=== PATIENT | male | born 1955 | race Caucasian/White ===

== ENCOUNTER 2022-09-30 23:53 | Inpatient (IN) | payer MEDICARE, MEDICAID, SELFPAY ==
--- NOTE | ~2022-09-30 | CT_ITS ---
EXAMINATION: CT HEAD WITHOUT CONTRAST CLINICAL INFORMATION: Acute AMS on Eliquis? Bleed COMPARISON: None. TECHNIQUE: Contiguous axial imaging was performed of the head without the administration of IV contrast. This CT examination was performed using dose optimization techniques as appropriate, variously including the following: *Automated exposure control *Adjustment of mA and/or kV according to patient size (this includes techniques or standardized protocols for targeted exams where dose is matched to indication/reason for exam; i.e. extremities or head) *Use of iterative reconstruction technique Dose: 767 mGy-cm FINDINGS: There is no evidence of acute intracranial hemorrhage or territorial infarction. No abnormal mass-effect or midline shift is seen. Velasco to white matter differentiation is well preserved. No extra axial fluid collections. The ventricles are normal in size and configuration. There is no abnormal attenuation within the brain parenchyma. Calcific atherosclerosis is present within the cavernous segments of the internal carotid arteries. The soft tissues and osseous structures are normal. Defects in the medial lord of the bilateral maxillary sinuses likely correspond to chronic changes of sinus surgery. The middle turbinates appear absent. There is thickening of the right maxillary sinus lord. Bilateral mastoid effusions are noted. CT/CT head/brain wo IV con IMPRESSION: No acute intracranial pathology. Bilateral mastoid effusions. This may be asymptomatic, though consider correlation for clinical findings of mastoiditis.
--- NOTE | ~2022-09-30 | XR_ITS ---
EXAMINATION: XR CHEST CLINICAL INFORMATION: Shortness of breath. COMPARISON: None TECHNIQUE: Frontal view of the chest was obtained. FINDINGS: Rotation limits evaluation of the cardiomediastinum and lungs. There are equivocal bibasilar airspace opacities, greater on the right side with possible small amount of right-sided pleural fluid. No pneumothorax. No displaced osseous fractures. Right upper quadrant surgical clips are noted. XR/XR chest 1V IMPRESSION: Equivocal bibasilar airspace opacities, greater on the right side with possible small amount of right-sided pleural fluid. In view of limitations of the study, recommend a repeat imaging with also correlation with a lateral chest radiograph.
--- NOTE | ~2022-09-30 | XR_ITS ---
EXAMINATION: XR CHEST CLINICAL INFORMATION: Shortness of breath. COMPARISON: 10/01/2022 chest radiograph. TECHNIQUE: Frontal view of the chest was obtained. FINDINGS: There is persistent moderate elevation right hemidiaphragm with mild bibasilar increased opacification. The left lung is clear. The heart and mediastinal structures are unremarkable. XR/XR chest 1V IMPRESSION: Small to moderate pleural effusion represents interval increase from the previous study.
--- NOTE | ~2022-09-30 | CT_ITS ---
EXAMINATION: CT ABDOMEN AND PELVIS WITHOUT CONTRAST CLINICAL INFORMATION: Altered mental status. Question small bowel obstruction. COMPARISON: None TECHNIQUE: Multidetector volumetric imaging was performed from the superior aspect of the liver through the pubic symphysis. Sagittal and coronal reformatted images were obtained on the technologist's workstation. This CT examination was performed using dose optimization techniques as appropriate, variously including the following: *Automated exposure control *Adjustment of mA and/or kV according to patient size (this includes techniques or standardized protocols for targeted exams where dose is matched to indication/reason for exam; i.e. extremities or head) *Use of iterative reconstruction technique DLP: 686 mGy-cm FINDINGS: LUNG BASES: Collapse of the left lower lobe, partial collapse of the right lower lobe, and additional atelectasis in the upper lobes are partially imaged. LIVER, GALLBLADDER, AND BILIARY TREE: Variant anatomy of the liver with interposition of the hepatic flexure between the liver and the right hemidiaphragm. Liver is otherwise normal in appearance without appreciable focal lesions on this unenhanced study. No ductal dilatation. Gallbladder is surgically absent. PANCREAS: A few pancreatic parenchymal calcifications are noted, possibly corresponding to sequela of chronic pancreatitis. No findings of acute pancreatitis. No ductal dilatation. SPLEEN: Unremarkable. ADRENAL GLANDS: Unremarkable. KIDNEYS AND URETERS: There is a dominant 6 cm multilocular cyst at the left kidney with fluid attenuation (3 Hounsfield units). Multiple additional smaller cystic foci are present at both kidneys. No recommend imaging follow-up. The kidneys are normal in size, shape, and attenuation. No hydronephrosis or hydroureter multiple punctate calcifications are noted in the right renal collecting system, consistent with nephrolithiasis. These are most notable within calyces of the lower pole and measure up to 3 mm in diameter. There is mild right hydroureteronephrosis. A 4 mm calculus is evident at the right ureterovesical junction with an attenuation value of 900 Hounsfield units. There is a smaller 1 mm calculus within the right distal ureter just proximal to this. Mild bilateral and perinephric fat stranding. Right periureteral fat stranding is noted. BLADDER: Thick-walled with mild surrounding fat stranding GASTROINTESTINAL TRACT: Stomach, small bowel, and colon are normal in caliber. No bowel wall thickening. No intraperitoneal free fluid or free air. ABDOMINAL WALL: Diffuse muscle atrophy. No hernias. LYMPH NODES: No adenopathy. VASCULAR: Calcific atherosclerosis abdominal aorta and iliac arteries. No aneurysmal dilatation. PELVIC VISCERA: Prostate gland measures 4.7 cm in diameter, borderline enlarged. OSSEOUS STRUCTURES: Moderate degenerative disc disease and facet arthropathy in the lower lumbar spine with mild left convex curvature. There is mild to moderate osteoarthritis in both hips. No acute fractures are identified. Bones are osteopenic. No joint effusions. There is marked multifocal atrophy and fatty replacement of the pelvic musculature with sparing of the gluteus odessa muscles. CT/CT abdomen pelvis wo IV con IMPRESSION: 1. A 4 mm calculus at the right ureterovesical junction produces mild right hydroureteronephrosis. An additional 1 mm calculus is present in the right distal ureter. 2. Multiple additional punctate calculi in the right renal collecting system. 3. Thick-walled bladder with surrounding fat stranding, potentially due to chronic bladder outlet obstruction or cystitis. Borderline prostatomegaly 4. Partial collapse of the left lower lobe, partial collapse of the right lower lobe, and additional atelectasis in the upper lobes. 5. Osteoarthritis in the hips. No acute osseous findings. Fleischner guidelines were followed.
--- NOTE | ~2022-09-30 | CT_ITS ---
EXAMINATION: CT CHEST WITHOUT CONTRAST CLINICAL INFORMATION: Hypoxia. On Eliquis COMPARISON: None TECHNIQUE: Multidetector volumetric CT imaging of the chest was done. Axial MIP volume rendering provided. Sagittal and coronal reformatted images were obtained. This CT examination was performed using dose optimization techniques as appropriate, variously including the following: *Automated exposure control *Adjustment of mA and/or kV according to patient size (this includes techniques or standardized protocols for targeted exams where dose is matched to indication/reason for exam; i.e. extremities or head) *Use of iterative reconstruction technique DLP: 362 mGy-cm FINDINGS: LIFE INSURANCE SALES: Elevation of the right hemidiaphragm. LUNGS: Linear, platelike opacities in the right upper lobe correspond to atelectasis, subsegmental. There is collapse of the right middle lobe, likely chronic. Additional segmental atelectasis is evident within the right lower lobe involving the medial and posterior basilar segments and a portion of the apical segment. There is collapse of the left lower lobe with persistent air bronchograms. More mild atelectasis is evident within the lingula. Areas of superimposed consolidation are possible, though not discretely seen. No pulmonary nodules. Central airways are clear. MEDIASTINUM: Mild calcific atherosclerosis in the coronary arteries. Heart is normal in size. No pericardial effusion. Thyroid gland is atrophic. No mediastinal or hilar adenopathy. CORONARY ARTERY CALCIFICATION: Present PLEURA: There is no pleural effusion. No pleural mass or thickening. AXILLA: No lymphadenopathy. UPPER ABDOMEN: There is detailed on the dedicated CT of the abdomen and pelvis. No acute findings. OSSEOUS STRUCTURES: No acute osseous findings. Bilateral glenohumeral osteoarthritis. Bilateral rotator cuff muscle atrophy, consistent with chronic rotator cuff tears. CT/CT chest wo IV con IMPRESSION: 1. Multifocal atelectasis in the lungs with collapse of the right middle and left lower lobes as well as partial collapse of the right lower lobe and subsegmental atelectasis in the upper lobes.. Superimposed consolidation is possible, though not discretely seen. 2. Elevation of the right hemidiaphragm. Fleischner guidelines were followed.
--- NOTE | 2022-09-30 23:58 | ED_ITS ---
HPI - SOB/Dyspnea General Chief Complaint: Dyspnea Stated Complaint: sob Time Seen by Provider: 09/30/22 23:58 Source: patient, EMS and RN notes reviewed Mode of arrival: EMS History of Present Illness HPI Narrative: Patient is 67 years old with history of frontotemporal dementia bipolar disorder COPD limb-girdle muscular dystrophy paroxysmal AFib on Eliquis came from longterm for increased shortness of breath since earlier today had chest x-ray done which showed right basilar airspace disease. Patient normally wears 3 L of oxygen desaturated to 84% increased on 6 L to 92% patient is DNR DNI has used CPAP in the past Related Data Allergies Allergy/AdvReac Type Severity Reaction Status Date / Time No Known Allergies Allergy Verified 10/01/22 00:06 Review of Systems Review of Systems: Yes all other systems are reviewed and are negative [facility] Social History Social History Advance Directives: Yes Advance Directives Information Provided: No Advance Directives on File: No Physical Exam Vital Signs: Vital Signs: Last Vital Signs Temp 95.6 F L 10/01/22 04:05 Pulse 70 10/01/22 04:05 Resp 18 10/01/22 05:32 BP 143/76 H 10/01/22 04:05 Pulse Ox 96 10/01/22 04:05 O2 Del Method 10/01/22 04:05 O2 Flow Rate 4 10/01/22 04:05 Oxygen Flow Rate 6 10/01/22 00:07 BMI result Body Mass Index 22.4 Appearance: Alert. Oriented X3. No acute distress. Eyes: PERRLA, No Nystagmus ENT: Pharynx normal. Oral Mucosa moist Neck: Normal inspection. Neck supple. CVS: Normal heart rate and rhythm. Pulses normal. Respiratory: No respiratory distress. Equal air entry bilateral, no wheezing/rales/rhonchi Abdomen: Soft and nontender. Bowel sounds are present, no mass palpable, no CVA tenderness Skin: Skin warm and dry. Normal skin color. Normal skin turgor. Extremities: No lower extremity edema. No calf tenderness Neuro: Oriented X 3. Extremity weakness bilateral all , No sensory deficit.No cerebellar signs , cranial nerves II-XII intact Medications Administered Discontinued Medications Generic Name Dose Route Start Last Admin Trade Name Freq PRN Reason Stop Dose Admin Albuterol Sulfate 5 mg/ 7.5 mg 10/01/22 05:25 10/01/22 05:29 Albuterol Sulfate 2.5 mg INHALE 10/01/22 05:26 7.5 mg ONCE ONE Administration Albuterol Sulfate 2.5 mg/ 0 mg 10/01/22 01:10 10/01/22 01:14 Albuterol/Ipratropium 3 ml INHALE 10/01/22 01:11 1 each ONCE ONE Administration Piperacillin Sod/Tazobactam 50 mls @ 100 mls/hr 10/01/22 03:18 10/01/22 04:29 Sod 3.375 gm/ Sodium Chloride IV 10/01/22 03:47 Infused ONCE ONE Infusion Levetiracetam 1,000 mg in 100 mls @ 400 mls/hr 10/01/22 05:51 10/01/22 06:38 Keppra IV 10/01/22 06:05 Infused ONCE ONE Infusion Methylprednisolone Sodium Succinate 125 mg 10/01/22 05:25 10/01/22 05:31 Methylprednisolone Sod Succ 125 Mg/2 Ml Vial IVPUSH 10/01/22 05:26 125 mg ONCE ONE Administration Midazolam HCl 1 mg 10/01/22 05:46 10/01/22 05:48 Midazolam Hcl/Pf 2 Mg/2 Ml Vial IVPUSH 10/01/22 05:47 1 mg ONCE ONE Administration MDM - SOB/Dyspnea MDM Narrative Medical decision making narrative: 3 am Patient with questionable right lower infiltrate lobe infiltrate normal WBC count normal lactic acid level will do CT chest. Patient Eliquis unlikely PE patient's saturation improved after nebulizing treatment likely patient has COPD which causing the bronchospasm and hypoxia will give IV Zosyn pending CT chest also patient has significant UTI 330 nurse notified that patient is cold clammy not responding just few minutes ago patient was at basal orientation and communicating on examination patient is diaphoretic left facial droop shallow breathing saturating 96% on 5 L nasal oxygen blood pressure 165/[address] scan of the head rule out bleed patient became urinary incontinence no seizure activity noticed? Postictal versus cerebral bleed 03:55 patient alert getting back to his baseline again CT head was negative no bleed was noticed CT chest showed 1.? Multifocal atelectasis in the lungs with collapse of the right middle and left lower lobes as well as partial collapse of the right lower lobe and subsegmental atelectasis in the upper lobes.. Superimposed consolidation is possible, though not discretely seen. 2.? Elevation of the right hemidiaphragm. ABG showed respiratory acidosis with pH of 7.23 pCO2 of 125 PO2 72 Patient is wheezing bilaterally will start him on IV steroids admit to ICU placed on AVAPS patella volume of 500 rate 18 EPAP of 5 patient is more awake and alert back to baseline Differential Diagnosis Differential diagnosis: Likely acute exacerbation of chronic obstructive airways disease, congestive heart failure, pneumonia and asthma with exacerbation Medical Records Attestation: I reviewed the patient's medical records. Lab Data Attestation: I reviewed the patient's lab results. Result diagrams: 10/01/22 00:27 10/01/22 00:27 Labs: Lab Results 10/01/22 10/01/22 10/01/22 Range/Units 00:27 00:27 00:27 WBC 10.3 (4.8-10.8) X10*3/uL RBC 4.42 L (4.60-5.80) X10*6/uL Hgb 13.9 L (14.0-18.0) g/dl Hct 46.8 (42.0-52.0) % MCV 105.9 H (80.0-98.0) fL MCH 31.4 (27.0-33.0) pg MCHC 29.7 L (31.0-36.0) g/dl RDW 12.0 (11.0-16.0) % Plt Count 251 (160-400) X10*3/uL MPV 9.0 L (9.4-12.4) fL Immature Gran % (Auto) 0.4 (0.0-0.4) % Neut % (Auto) 88.8 H (45-73) % Lymph % (Auto) 4.4 L (20-40) % [place] % (Auto) 6.0 (2-11) % Eos % (Auto) 0.1 (0-4) % Baso % (Auto) 0.3 (0-2) % Lymph # (Auto) 0.5 L (1.2-4.9) X10*3/uL [place] # (Auto) 0.6 (0.1-1.2) X10*3/uL Eos # (Auto) 0.0 (0.0-0.4) X10*3/uL Baso # (Auto) 0.0 (0.0-0.2) X10*3/uL Abs Immat Gran (auto) 0.04 H (0.00-0.03) X10*3/uL Absolute Neuts (auto) 9.1 H (2.0-8.3) x10*3/uL Absolute Nucleated RBC 0.000 (0.0-0.012) X10*3/uL Nucleated RBC % (auto) 0.0 (0.0-0.2) /100WBC PT (10.0-13.1) SEC INR (0.9-1.1) D-Dimer High Sensitivty NG/ML O2 Saturation % ABG pH at Pt Temp (7.35-7.45) ABG pCO2 at Pt Temp (32-45) mmHg ABG pO2 at Pt Temp (83-108) mmHg ABG HCO3 (22-26) mmol/L ABG Base Excess (Actual) mmol/L VBG pH (7.32-7.43) VBG pCO2 mmHg VBG pO2 mmHg VBG HCO3 (22-26) mmol/L VBG O2 Saturation % VBG Base Excess mmol/L Sodium 148 H (135-145) mmol/L Potassium 4.9 (3.3-5.1) mmol/L Chloride 90 L (96-108) mmol/L Carbon Dioxide 44 H* (22-29) mmol/L Anion Gap 19 (12-20) BUN 17 H (9-16) mg/dL Creatinine 0.62 (0.5-1.4) mg/dL Estim Creat Clear Calc 126.0 Estimated GFR > 60 POC Glucose (60-115) mg/dL Random Glucose 139 H (60-115) mg/dL Lactic Acid 0.5 (0.5-2.0) mmol/L Calcium 9.7 (8.4-10.2) mg/dL Total Bilirubin 0.4 (0.0-1.0) mg/dL AST 28 (5-37) U/L ALT 35 (0-40) U/L Alkaline Phosphatase 69 (39-117) U/L Troponin I High Sens (<3.5-35.0) ng/L B-Natriuretic Peptide (<100) pg/mL Total Protein 7.2 (6.5-8.0) g/dL Albumin 4.0 (3.5-5.0) g/dL Urine Color Urine Appearance Urine pH (5.0-9.0) Ur Specific Castella (1.005-1.025) Urine Protein (Neg-Trace) mg/dL Urine Glucose (UA) (Negative) mg/dL Urine Ketones (Negative) mg/dL Urine Blood (Negative) Urine Nitrite (Negative) Ur Leukocyte Esterase (Negative) Urine RBC (0-2) /HPF Urine WBC (0-5) /HPF Ur Squamous Epith Cells (0-2) /HPF Urine Bacteria (None Seen) Hyaline Casts (0-2) /LPF COVID-19 (JOSE) (Negative) COVID-19 Clin Com Influenza Type A (PCR) (Negative) Influenza Type B (PCR) (Negative) RSV RNA Qual (PCR) (Negative) SARS-CoV-2 RNA (RT-PCR) (Negative) 10/01/22 10/01/22 10/01/22 Range/Units 00:27 00:28 00:28 WBC (4.8-10.8) X10*3/uL RBC (4.60-5.80) X10*6/uL Hgb (14.0-18.0) g/dl Hct (42.0-52.0) % MCV (80.0-98.0) fL MCH (27.0-33.0) pg MCHC (31.0-36.0) g/dl RDW (11.0-16.0) % Plt Count (160-400) X10*3/uL MPV (9.4-12.4) fL Immature Gran % (Auto) (0.0-0.4) % Neut % (Auto) (45-73) % Lymph % (Auto) (20-40) % [place] % (Auto) (2-11) % Eos % (Auto) (0-4) % Baso % (Auto) (0-2) % Lymph # (Auto) (1.2-4.9) X10*3/uL [place] # (Auto) (0.1-1.2) X10*3/uL Eos # (Auto) (0.0-0.4) X10*3/uL Baso # (Auto) (0.0-0.2) X10*3/uL Abs Immat Gran (auto) (0.00-0.03) X10*3/uL Absolute Neuts (auto) (2.0-8.3) x10*3/uL Absolute Nucleated RBC (0.0-0.012) X10*3/uL Nucleated RBC % (auto) (0.0-0.2) /100WBC PT 13.7 H (10.0-13.1) SEC INR 1.2 H (0.9-1.1) D-Dimer High Sensitivty 226 NG/ML O2 Saturation % ABG pH at Pt Temp (7.35-7.45) ABG pCO2 at Pt Temp (32-45) mmHg ABG pO2 at Pt Temp (83-108) mmHg ABG HCO3 (22-26) mmol/L ABG Base Excess (Actual) mmol/L VBG pH (7.32-7.43) VBG pCO2 mmHg VBG pO2 mmHg VBG HCO3 (22-26) mmol/L VBG O2 Saturation % VBG Base Excess mmol/L Sodium (135-145) mmol/L Potassium (3.3-5.1) mmol/L Chloride (96-108) mmol/L Carbon Dioxide (22-29) mmol/L Anion Gap (12-20) BUN (9-16) mg/dL Creatinine (0.5-1.4) mg/dL Estim Creat Clear Calc Estimated GFR POC Glucose (60-115) mg/dL Random Glucose (60-115) mg/dL Lactic Acid (0.5-2.0) mmol/L Calcium (8.4-10.2) mg/dL Total Bilirubin (0.0-1.0) mg/dL AST (5-37) U/L ALT (0-40) U/L Alkaline Phosphatase (39-117) U/L Troponin I High Sens 24.2 (<3.5-35.0) ng/L B-Natriuretic Peptide 82 (<100) pg/mL Total Protein (6.5-8.0) g/dL Albumin (3.5-5.0) g/dL Urine Color Urine Appearance Urine pH (5.0-9.0) Ur Specific Castella (1.005-1.025) Urine Protein (Neg-Trace) mg/dL Urine Glucose (UA) (Negative) mg/dL Urine Ketones (Negative) mg/dL Urine Blood (Negative) Urine Nitrite (Negative) Ur Leukocyte Esterase (Negative) Urine RBC (0-2) /HPF Urine WBC (0-5) /HPF Ur Squamous Epith Cells (0-2) /HPF Urine Bacteria (None Seen) Hyaline Casts (0-2) /LPF COVID-19 (JOSE) (Negative) COVID-19 Clin Com Influenza Type A (PCR) (Negative) Influenza Type B (PCR) (Negative) RSV RNA Qual (PCR) (Negative) SARS-CoV-2 RNA (RT-PCR) (Negative) 10/01/22 10/01/22 10/01/22 Range/Units 00:46 00:46 00:46 WBC (4.8-10.8) X10*3/uL RBC (4.60-5.80) X10*6/uL Hgb (14.0-18.0) g/dl Hct (42.0-52.0) % MCV (80.0-98.0) fL MCH (27.0-33.0) pg MCHC (31.0-36.0) g/dl RDW (11.0-16.0) % Plt Count (160-400) X10*3/uL MPV (9.4-12.4) fL Immature Gran % (Auto) (0.0-0.4) % Neut % (Auto) (45-73) % Lymph % (Auto) (20-40) % [place] % (Auto) (2-11) % Eos % (Auto) (0-4) % Baso % (Auto) (0-2) % Lymph # (Auto) (1.2-4.9) X10*3/uL [place] # (Auto) (0.1-1.2) X10*3/uL Eos # (Auto) (0.0-0.4) X10*3/uL Baso # (Auto) (0.0-0.2) X10*3/uL Abs Immat Gran (auto) (0.00-0.03) X10*3/uL Absolute Neuts (auto) (2.0-8.3) x10*3/uL Absolute Nucleated RBC (0.0-0.012) X10*3/uL Nucleated RBC % (auto) (0.0-0.2) /100WBC PT (10.0-13.1) SEC INR (0.9-1.1) D-Dimer High Sensitivty NG/ML O2 Saturation % ABG pH at Pt Temp (7.35-7.45) ABG pCO2 at Pt Temp (32-45) mmHg ABG pO2 at Pt Temp (83-108) mmHg ABG HCO3 (22-26) mmol/L ABG Base Excess (Actual) mmol/L VBG pH (7.32-7.43) VBG pCO2 mmHg VBG pO2 mmHg VBG HCO3 (22-26) mmol/L VBG O2 Saturation % VBG Base Excess mmol/L Sodium (135-145) mmol/L Potassium (3.3-5.1) mmol/L Chloride (96-108) mmol/L Carbon Dioxide (22-29) mmol/L Anion Gap (12-20) BUN (9-16) mg/dL Creatinine (0.5-1.4) mg/dL Estim Creat Clear Calc Estimated GFR POC Glucose (60-115) mg/dL Random Glucose (60-115) mg/dL Lactic Acid (0.5-2.0) mmol/L Calcium (8.4-10.2) mg/dL Total Bilirubin (0.0-1.0) mg/dL AST (5-37) U/L ALT (0-40) U/L Alkaline Phosphatase (39-117) U/L Troponin I High Sens (<3.5-35.0) ng/L B-Natriuretic Peptide (<100) pg/mL Total Protein (6.5-8.0) g/dL Albumin (3.5-5.0) g/dL Urine Color Brown A Urine Appearance Turbid Urine pH 6.0 (5.0-9.0) Ur Specific [place] 1.020 (1.005-1.025) Urine Protein 100 (2+) H (Neg-Trace) mg/dL Urine Glucose (UA) Negative (Negative) mg/dL Urine Ketones Negative (Negative) mg/dL Urine Blood Moderate (2+) H (Negative) Urine Nitrite Positive H (Negative) Ur Leukocyte Esterase Moderate (2+) H (Negative) Urine RBC >20 H (0-2) /HPF Urine WBC >50 H (0-5) /HPF Ur Squamous Epith Cells 0-2 (0-2) /HPF Urine Bacteria 3+ (None Seen) Hyaline Casts 0-2 (0-2) /LPF COVID-19 (JOSE) Negative (Negative) COVID-19 Clin Com See Note Influenza Type A (PCR) NEGATIVE (Negative) Influenza Type B (PCR) NEGATIVE (Negative) RSV RNA Qual (PCR) NEGATIVE (Negative) SARS-CoV-2 RNA (RT-PCR) NEGATIVE (Negative) 10/01/22 10/01/22 10/01/22 Range/Units 03:33 03:38 05:02 WBC (4.8-10.8) X10*3/uL RBC (4.60-5.80) X10*6/uL Hgb (14.0-18.0) g/dl Hct (42.0-52.0) % MCV (80.0-98.0) fL MCH (27.0-33.0) pg MCHC (31.0-36.0) g/dl RDW (11.0-16.0) % Plt Count (160-400) X10*3/uL MPV (9.4-12.4) fL Immature Gran % (Auto) (0.0-0.4) % Neut % (Auto) (45-73) % Lymph % (Auto) (20-40) % [place] % (Auto) (2-11) % Eos % (Auto) (0-4) % Baso % (Auto) (0-2) % Lymph # (Auto) (1.2-4.9) X10*3/uL [place] # (Auto) (0.1-1.2) X10*3/uL Eos # (Auto) (0.0-0.4) X10*3/uL Baso # (Auto) (0.0-0.2) X10*3/uL Abs Immat Gran (auto) (0.00-0.03) X10*3/uL Absolute Neuts (auto) (2.0-8.3) x10*3/uL Absolute Nucleated RBC (0.0-0.012) X10*3/uL Nucleated RBC % (auto) (0.0-0.2) /100WBC PT (10.0-13.1) SEC INR (0.9-1.1) D-Dimer High Sensitivty NG/ML O2 Saturation 94.0 % ABG pH at Pt Temp 7.23 L (7.35-7.45) ABG pCO2 at Pt Temp 125 H* (32-45) mmHg ABG pO2 at Pt Temp 72 L (83-108) mmHg ABG HCO3 53 H (22-26) mmol/L ABG Base Excess (Actual) 18.7 mmol/L VBG pH 7.30 L (7.32-7.43) VBG pCO2 115 mmHg VBG pO2 225 mmHg VBG HCO3 57 H (22-26) mmol/L VBG O2 Saturation 100.0 % VBG Base Excess 23.5 mmol/L Sodium (135-145) mmol/L Potassium (3.3-5.1) mmol/L Chloride (96-108) mmol/L Carbon Dioxide (22-29) mmol/L Anion Gap (12-20) BUN (9-16) mg/dL Creatinine (0.5-1.4) mg/dL Estim Creat Clear Calc Estimated GFR POC Glucose 186 H (60-115) mg/dL Random Glucose (60-115) mg/dL Lactic Acid (0.5-2.0) mmol/L Calcium (8.4-10.2) mg/dL Total Bilirubin (0.0-1.0) mg/dL AST (5-37) U/L ALT (0-40) U/L Alkaline Phosphatase (39-117) U/L Troponin I High Sens (<3.5-35.0) ng/L B-Natriuretic Peptide (<100) pg/mL Total Protein (6.5-8.0) g/dL Albumin (3.5-5.0) g/dL Urine Color Urine Appearance Urine pH (5.0-9.0) Ur Specific Cast[place] (1.005-1.025) Urine Protein (Neg-Trace) mg/dL Urine Glucose (UA) (Negative) mg/dL Urine Ketones (Negative) mg/dL Urine Blood (Negative) Urine Nitrite (Negative) Ur Leukocyte Esterase (Negative) Urine RBC (0-2) /HPF Urine WBC (0-5) /HPF Ur Squamous Epith Cells (0-2) /HPF Urine Bacteria (None Seen) Hyaline Casts (0-2) /LPF COVID-19 (JOSE) (Negative) COVID-19 Clin Com Influenza Type A (PCR) (Negative) Influenza Type B (PCR) (Negative) RSV RNA Qual (PCR) (Negative) SARS-CoV-2 RNA (RT-PCR) (Negative) ECG Data Attestation: I personally reviewed and interpreted this ECG as follows: Interpretation: Normal sinus rhythm heart rate 77 beats per minute normal intervals normal axis nonspecific ST T wave changes no acute skin Critical Care Time Critical Care Time Critical Care Time: Yes Total Critical Care Time: 60 Attestation: The patient was critically ill with a high probability of imminent or life threatening deterioration. I spent greater than 65 minutes of discontinuous time evaluating the patient,delivering critical care at the bedside, discussing and evaluating pertinent data with consultants. Critical care time does not include time spent performing separately billable procedures or teaching. Total time spent performing critical care was 60 minutes. Discharge Plan Discharge Clinical Impression: Acute respiratory failure with hypoxia and hypercarbia, Pneumonia Patient Disposition: Admitted As Inpatient
[2022-10-01] VITALS (21 sets, daily range): BP systolic 131–180; BP diastolic 68–89; PULSE 66–104; RESP 12–41; TEMP 35.3–37.3; O2SAT 84–97; BMI 22.4
--- NOTE | 2022-10-01 00:06 | ECG_ITS ---
Test Reason : SOB Blood Pressure : / mmHG Vent. Rate : 077 BPM Atrial Rate : 077 BPM P-R Int : 148 ms QRS Dur : 098 ms QT Int : 382 ms P-R-T Axes : 074 051 037 degrees QTc Int : 432 ms Normal sinus rhythm Possible Left atrial enlargement Nonspecific ST abnormality Abnormal ECG No previous ECGs available Referred By: Scot Ames Electronically Signed By:SHADI WILSON MD
[2022-10-01 00:33] LABS: MANUAL DIFF FLAG NO
[2022-10-01 00:35] LABS: Basophils Percent Auto 0.3 % (0-2); Eosinophils Percent Auto 0.1 % (0-4); Hematocrit 46.8 % (42.0-52.0); Hemoglobin 13.9 g/dl (14.0-18.0); Imm Gran Abs Auto 0.04 X10*3/uL (0.00-0.03); Imm Gran Pct Auto 0.4 % (0.0-0.4); Lymphocytes Absolute Auto 0.5 X10*3/uL (1.2-4.9); Lymphocytes Percent Auto 4.4 % (20-40); Mean Corpuscular HGB Conc 29.7 g/dl (31.0-36.0); Mean Corpuscular Hemoglobin 31.4 pg (27.0-33.0); Mean Corpuscular Volume 105.9 fL (80.0-98.0); Monocytes Absolute Auto 0.6 X10*3/uL (0.1-1.2); Neutrophils Absolute Auto 9.1 x10*3/uL (2.0-8.3); Neutrophils Percent Auto 88.8 % (45-73); Platelet Count 251 X10*3/uL (160-400); Red Blood Count 4.42 X10*6/uL (4.60-5.80); White Blood Count 10.3 X10*3/uL (4.8-10.8)
[2022-10-01 00:41] LABS: INTERNATIONAL NORM RATIO 1.2 (0.9-1.1); Prothrombin Time 13.7 SEC (10.0-13.1)
[2022-10-01 00:43] LABS: D Dimer High Sensitivity 226 NG/ML
[2022-10-01 00:45] LABS: Lactic Acid 0.5 mmol/L (0.5-2.0)
[2022-10-01 00:55] LABS: B Type Natriuretic Peptide 82 pg/mL (<100)
[2022-10-01 00:55] LABS: Troponin-I High Sensitivity 24.2 ng/L (<3.5-35.0)
[2022-10-01 00:57] LABS: Appearance Urine Turbid; Color Urine Brown; Glucose Urine UA Negative (Negative); Leukocyte Esterase Urine Moderate (2+) (Negative); Nitrite Urine Positive (Negative); UMIC TRIGGER UACC YES; Urine Blood Moderate (2+) (Negative); Urine Ketones Negative (Negative); Urine Protein 100 (2+) mg/dL (Neg-Trace)
[2022-10-01 01:08] LABS: Bacteria Urine 3+ (None Seen); Hyaline Casts Urine 0-2 /LPF (0-2); RBC Urine >20 /HPF (0-2); Squamous Epithelial Cell Urine 0-2 /HPF (0-2); UACC Culture Trigger YES; WBC Urine >50 /HPF (0-5)
[2022-10-01 01:10] LABS: COVID-19 Test Negative (Negative); IDNOW Serial# 16C4AD1C
[2022-10-01] MEDS: Albuterol Sulfate 2.5 MG, Albuterol/Iprat 2.5/0.5MG 3 ML 3 ML INHALE (01:14)
[2022-10-01 01:21] LABS: Alanine Aminotransferase 35 U/L (0-40); Alkaline Phosphatase 69 U/L (39-117); Aspartate Amino Transferase 28 U/L (5-37); Bilirubin Total 0.4 mg/dL (0.0-1.0); Blood Urea Nitrogen 17 mg/dL (9-16); Estimated Glomerular Filt Rate > 60; Glucose Random 139 mg/dL (60-115); Total Protein 7.2 g/dL (6.5-8.0)
[2022-10-01 01:24] LABS: Anion Gap 19 (12-20); Calcium 9.7 mg/dL (8.4-10.2); Carbon Dioxide 44 mmol/L (22-29); Chloride 90 mmol/L (96-108); Potassium 4.9 mmol/L (3.3-5.1); Sodium 148 mmol/L (135-145)
[2022-10-01 01:40] LABS: Influenza A PCR NEGATIVE (Negative); Influenza B PCR NEGATIVE (Negative); Resp Syncy Virus RNA Qual PCR NEGATIVE (Negative); SARS COV2 PCR INHOUSE NEGATIVE (Negative)
[2022-10-01 03:42] LABS: Glucose, Whole Blood 186 mg/dL (60-115)
[2022-10-01 03:43] LABS: Venous Blood Gas Refer to POC result
[2022-10-01 03:44] LABS: VBG Base Excess 23.5 mmol/L; VBG HCO3 57 mmol/L (22-26); VBG pCO2 115 mmHg; VBG pO2 225 mmHg
[2022-10-01] MEDS: Piperacillin Sodium/Tazobactam 3.375 GM in 0.9 % Sodium Chloride 50 ML IV (03:54)
--- NOTE | 2022-10-01 04:07 | PC.NURSE ---
@0320 this RN and pct went into room to assess patient, administer zosyn for pneumonia, and draw VBG. patient was noted to be extremely diaphoretic, beads of sweat on forehead and hands very hot to the touch. patient not answering questions and appeared extremely lethargic. eye opening to sternal rub, pupils appeared pin-point but reactive. this was very unlike patients presentation on arrival to ED. patient presented very talkative and responded well to questions. patient appeared to be in a post-ictal type state. no known seizure history. only medication administered to patient in ED prior to this presentation was albuterol treatment by RT. MD ZAVALA immediately made aware and came to assess. patient immediately brought to cat scan for CT head/brain to r/o possible stroke or seizure.
--- NOTE | 2022-10-01 05:01 | PC.NURSE ---
patient placed on avap by RT for high CO2 and ABG drawn.
[2022-10-01 05:05] LABS: ABG Refer to POC result
[2022-10-01 05:09] LABS: ABG Base Excess 18.7 mmol/L; ABG HCO3 53 mmol/L (22-26); ABG pCO2 125 mmHg (32-45); ABG pH 7.23 (7.35-7.45); ABG pO2 72 mmHg (83-108)
[2022-10-01] MEDS: Albuterol Sulfate 5 MG, Albuterol Sulfate (0.083%) 2.5 MG 7.5 MG INHALE (05:29)
[2022-10-01] MEDS: methylPREDNISolone Sod Succ 125 MG/2 ML VIAL IVPUSH (05:31)
[2022-10-01] MEDS: Midazolam HCl/PF 2 MG/2 ML VIAL 1 MG IVPUSH (05:48)
[2022-10-01] MEDS: levETIRAcetam in NaCl (iso-os) 1,000 MG/100 ML PIGGYBACK 400 MG IV (06:03)
[2022-10-01] MEDS: Albuterol/Iprat 2.5/0.5MG 3 ML AMPUL.NEB INHALE ×2 (07:28→20:26)
--- NOTE | 2022-10-01 07:34 | PC.NURSE ---
Patient arrived to unit at 0640 from ED via stretcher and on Bipap AVAPS mode 18/500/5/35%. Patient alert to person only, unable to follow commands, worsening agitation, reaching out ?hallucinating, pulling at wiring/bedding. Okay per night provider to remove bipap mask if patient unable to tolerate. Respiratory at bedside - bipap removed and placed on NC 2L, currently sating 92%. Phlebotomy at bedside for 0700 VBG.
[2022-10-01 07:51] LABS: VBG HCO3 56 mmol/L (22-26); VBG pCO2 85 mmHg; VBG pH 7.43 (7.32-7.43); VBG pO2 38 mmHg
--- NOTE | 2022-10-01 08:17 | PHA.MEDREC ---
Pharmacy Consult ? Medication Reconciliation Pharmacy has completed the medication reconciliation. List from [facility]
[2022-10-01 09:18] LABS: Venous Blood Gas Refer to POC result
[2022-10-01] MEDS: acetaZOLAMIDE sodium 500 MG VIAL 375 MG IVPUSH ×2 (09:35→22:45)
[2022-10-01] MEDS: cefTRIAXone sodium 1 GM in 0.9 % Sodium Chloride 50 ML IV (09:52)
--- NOTE | 2022-10-01 10:36 | PM.CCHP ---
History of Present Illness Date of Service: 10/01/22 Chief Complaint: Dyspnea 67-year-old gentleman with underlying frontotemporal dementia, bipolar, limb girdle muscular dystrophy, paroxysmal AFib on Eliquis, COPD on supplemental oxygen 2-3 L admitted on 10/01/2022 from [facility] facility with complaints of dyspnea. On ER evaluation patient hyperoxic and hypercapnic requiring BiPAP support. CT chest with demonstration of chronic atelectasis. Laboratory studies source of notable for likely developing urinary tract infection. Patient admitted to intensive care unit, titrated off BiPAP to his basal supplemental oxygen rate of 2 L. started on ceftriaxone for UTI and azithromycin for COPD exacerbation. Review of Systems Review of Systems: Yes Unobtainable due to mental status ( dementia with confabulation) [facility] Past Medical History Medical History (Updated 10/01/22 @ 10:40 by Man Marti MD) Atrial fibrillation Bipolar disorder COPD (chronic obstructive pulmonary disease) Dementia Hypertension Muscular dystrophy Oxygen dependent Respiratory failure with hypercapnia Social History Social History Household Members: Unknown / Unable to assess Housing: [facility] Unable to assess alcohol history related to: Unable to respond Patient Tobacco Use Status: Tobacco use Unknown Patient Interested in Nicotine Replacement: No Substance Use Type: Marijuana Currently Displaying Signs/Symptoms of Drug Intoxication Withdrawal: No [facility] Practices: pt states none Advance Directives: Yes Advance Directives Information Provided: No Advance Directives on File: No Advance Directives Date on File: 10/01/22 Do you have thoughts of harming others: None Do you have a plan to hurt others: No Plan Recently lost weight without trying: Unsure Nutrition Risks: On aspiration precautions Poor oral hygiene: No Meds Allergies Allergy/AdvReac Type Severity Reaction Status Date / Time No Known Allergies Allergy Verified 10/01/22 00:06 Active Medications: Current Medications Acetazolamide (Acetazolamide Sodium 500 Mg Vial) 375 mg IVPUSH Q12H [facility] Last Admin: 10/01/22 09:35 Dose: 375 mg Albuterol/Ipratropium (Albuterol/Iprat 2.5/0.5mg 3 Ml Ampul.Neb) 3 ml INHALE RQ6H WHILE AWAKE [facility] Last Admin: 10/01/22 07:28 Dose: 3 ml Ceftriaxone Sodium 1 gm/ (Sodium Chloride) 50 mls @ 100 mls/hr IV Q24H [facility] Last Admin: 10/01/22 09:52 Dose: 100 mls/hr Azithromycin 500 mg/ Sodium (Chloride) 250 mls @ 125 mls/hr IV Q24H [facility] Prednisone (Prednisone 20 Mg Tablet) 40 mg PO DAILY [facility] Home Medications Medication Instructions Recorded Confirmed Last Taken Type acetaminophen 325 mg tablet 650 mg PO Q6H PRN Pain 10/01/22 10/01/22 Unknown History albuterol sulfate 90 mcg/actuation 90 mcg inhalation Q4H PRN Wheezing 10/01/22 10/01/22 Unknown History aerosol inhaler apixaban 5 mg tablet (Eliquis) 1 tab PO BID 10/01/22 10/01/22 Unknown History bisacodyl 10 mg rectal suppository 10 mg ID DAILY PRN Constipation 10/01/22 10/01/22 Unknown History cholecalciferol (vitamin D3) 1,250 1,250 mcg PO QMONTH 10/01/22 10/01/22 Unknown History mcg (50,000 unit) capsule cyanocobalamin (vitamin B-12) 1,000 mcg PO DAILY 10/01/22 10/01/22 Unknown History 1,000 mcg tablet docusate sodium 100 mg capsule 100 mg PO BID 10/01/22 10/01/22 Unknown History fluoxetine 10 mg tablet 1 tab PO DAILY 10/01/22 10/01/22 Unknown History fluoxetine 20 mg tablet 1 tab PO DAILY 10/01/22 10/01/22 Unknown History guaifenesin 100 mg/5 mL oral liquid 200 mg PO Q4H PRN Cough 10/01/22 10/01/22 Unknown History ipratropium 0.5 mg-albuterol 3 mg 3 ml inhalation Q6H PRN Wheezing 10/01/22 10/01/22 Unknown History (2.5 mg base)/3 mL nebulization soln ipratropium 20 mcg-albuterol 100 1 puff inhalation QID 10/01/22 10/01/22 Unknown History mcg/actuation mist for inhalation (Combivent Respimat) loperamide 2 mg capsule 2 mg PO TID PRN Diarrhea 10/01/22 10/01/22 Unknown History losartan 25 mg tablet 1 tab PO DAILY 10/01/22 10/01/22 Unknown History magnesium hydroxide 400 mg/5 mL 2,400 mg PO DAILY PRN Constipation 10/01/22 10/01/22 Unknown History oral suspension (Milk of Magnesia) melatonin 3 mg tablet 6 mg PO BEDTIME 10/01/22 10/01/22 Unknown History metoprolol succinate 25 mg 1 tab PO DAILY 10/01/22 10/01/22 Unknown History tablet,extended release 24 hr olanzapine 2.5 mg tablet 1 tab PO BEDTIME 10/01/22 10/01/22 Unknown History ropinirole 0.25 mg tablet 1 tab PO BEDTIME 10/01/22 10/01/22 Unknown History sodium phosphates 19 gram-7 118 ml ID BEDTIME PRN Constipation 10/01/22 10/01/22 Unknown History gram/118 mL enema (Fleet Enema) trazodone 50 mg tablet 0.5 tab PO BEDTIME PRN Sleep 10/01/22 10/01/22 Unknown History Physical Exam Vital Signs: Vital Signs: Last Vital Signs Temp 98.8 F 10/01/22 08:00 Pulse 87 10/01/22 08:00 Resp 37 H 10/01/22 08:00 BP 152/73 H 10/01/22 08:00 Pulse Ox 89 L 10/01/22 08:00 O2 Del Method 10/01/22 08:00 O2 Flow Rate 2 10/01/22 08:00 FiO2 35 10/01/22 07:00 Oxygen Flow Rate 6 10/01/22 00:07 BMI result Body Mass Index 22.4 Const: General: no acute distress, alert and awake Eyes: Sclerae: sclerae normal EOM: EOMs intact bilaterally Neck: Neck: Yes no lymphadenopathy, Yes trachea midline and Yes supple Resp: Effort & Inspection: normal respiratory effort and no respiratory distress Auscultation: clear to auscultation bilaterally Cardio: Rate: regular rate Rhythm: regular rhythm Heart sounds: no gallops, no murmurs and no rubs GI: Palpation (GI): Soft to palpation and Other GI palpation findings present ( Nontender) Auscultation: normal bowel sounds Extrem: General: Yes no pedal edema, No clubbing and No cyanosis Results Labs CBC and Chem 7: 10/01/22 00:27 10/01/22 00:27 Labs: Laboratory Results - last 24 hr 10/01/22 10/01/22 10/01/22 00:27 00:27 00:27 MCV 105.9 H MCH 31.4 MCHC 29.7 L RDW 12.0 Plt Count 251 MPV 9.0 L Immature Gran % (Auto) 0.4 Neut % (Auto) 88.8 H Lymph % (Auto) 4.4 L [place] % (Auto) 6.0 Eos % (Auto) 0.1 Baso % (Auto) 0.3 Lymph # (Auto) 0.5 L [place] # (Auto) 0.6 Eos # (Auto) 0.0 Baso # (Auto) 0.0 Abs Immat Gran (auto) 0.04 H Absolute Neuts (auto) 9.1 H Absolute Nucleated RBC 0.000 Nucleated RBC % (auto) 0.0 PT INR D-Dimer High Sensitivty O2 Saturation ABG pH at Pt Temp ABG pCO2 at Pt Temp ABG pO2 at Pt Temp ABG HCO3 ABG Base Excess (Actual) VBG pH VBG pCO2 VBG pO2 VBG HCO3 VBG O2 Saturation VBG Base Excess Anion Gap 19 Estim Creat Clear Calc 126.0 Estimated GFR > 60 POC Glucose Random Glucose 139 H Lactic Acid 0.5 Calcium 9.7 Total Bilirubin 0.4 AST 28 ALT 35 Alkaline Phosphatase 69 Troponin I High Sens B-Natriuretic Peptide Total Protein 7.2 Albumin 4.0 Urine Color Urine Appearance Urine pH Ur Specific [place] Urine Protein Urine Glucose (UA) Urine Ketones Urine Blood Urine Nitrite Ur Leukocyte Esterase Urine RBC Urine WBC Ur Squamous Epith Cells Urine Bacteria Hyaline Casts COVID-19 (JOSE) COVID-19 Clin Com Influenza Type A (PCR) Influenza Type B (PCR) RSV RNA Qual (PCR) SARS-CoV-2 RNA (RT-PCR) 10/01/22 10/01/22 10/01/22 00:27 00:28 00:28 MCV MCH MCHC RDW Plt Count MPV Immature Gran % (Auto) Neut % (Auto) Lymph % (Auto) [place] % (Auto) Eos % (Auto) Baso % (Auto) Lymph # (Auto) [place] # (Auto) Eos # (Auto) Baso # (Auto) Abs Immat Gran (auto) Absolute Neuts (auto) Absolute Nucleated RBC Nucleated RBC % (auto) PT 13.7 H INR 1.2 H D-Dimer High Sensitivty 226 O2 Saturation ABG pH at Pt Temp ABG pCO2 at Pt Temp ABG pO2 at Pt Temp ABG HCO3 ABG Base Excess (Actual) VBG pH VBG pCO2 VBG pO2 VBG HCO3 VBG O2 Saturation VBG Base Excess Anion Gap Estim Creat Clear Calc Estimated GFR POC Glucose Random Glucose Lactic Acid Calcium Total Bilirubin AST ALT Alkaline Phosphatase Troponin I High Sens 24.2 B-Natriuretic Peptide 82 Total Protein Albumin Urine Color Urine Appearance Urine pH Ur Specific [place] Urine Protein Urine Glucose (UA) Urine Ketones Urine Blood Urine Nitrite Ur Leukocyte Esterase Urine RBC Urine WBC Ur Squamous Epith Cells Urine Bacteria Hyaline Casts COVID-19 (JOSE) COVID-19 Clin Com Influenza Type A (PCR) Influenza Type B (PCR) RSV RNA Qual (PCR) SARS-CoV-2 RNA (RT-PCR) 10/01/22 10/01/22 10/01/22 00:46 00:46 00:46 MCV MCH MCHC RDW Plt Count MPV Immature Gran % (Auto) Neut % (Auto) Lymph % (Auto) [place] % (Auto) Eos % (Auto) Baso % (Auto) Lymph # (Auto) [place] # (Auto) Eos # (Auto) Baso # (Auto) Abs Immat Gran (auto) Absolute Neuts (auto) Absolute Nucleated RBC Nucleated RBC % (auto) PT INR D-Dimer High Sensitivty O2 Saturation ABG pH at Pt Temp ABG pCO2 at Pt Temp ABG pO2 at Pt Temp ABG HCO3 ABG Base Excess (Actual) VBG pH VBG pCO2 VBG pO2 VBG HCO3 VBG O2 Saturation VBG Base Excess Anion Gap Estim Creat Clear Calc Estimated GFR POC Glucose Random Glucose Lactic Acid Calcium Total Bilirubin AST ALT Alkaline Phosphatase Troponin I High Sens B-Natriuretic Peptide Total Protein Albumin Urine Color Brown A Urine Appearance Turbid Urine pH 6.0 Ur Specific [place] 1.020 Urine Protein 100 (2+) H Urine Glucose (UA) Negative Urine Ketones Negative Urine Blood Moderate (2+) H Urine Nitrite Positive H Ur Leukocyte Esterase Moderate (2+) H Urine RBC >20 H Urine WBC >50 H Ur Squamous Epith Cells 0-2 Urine Bacteria 3+ Hyaline Casts 0-2 COVID-19 (JOSE) Negative COVID-19 Clin Com See Note Influenza Type A (PCR) NEGATIVE Influenza Type B (PCR) NEGATIVE RSV RNA Qual (PCR) NEGATIVE SARS-CoV-2 RNA (RT-PCR) NEGATIVE 10/01/22 10/01/22 10/01/22 03:33 03:38 05:02 MCV MCH MCHC RDW Plt Count MPV Immature Gran % (Auto) Neut % (Auto) Lymph % (Auto) [place] % (Auto) Eos % (Auto) Baso % (Auto) Lymph # (Auto) [place] # (Auto) Eos # (Auto) Baso # (Auto) Abs Immat Gran (auto) Absolute Neuts (auto) Absolute Nucleated RBC Nucleated RBC % (auto) PT INR D-Dimer High Sensitivty O2 Saturation 94.0 ABG pH at Pt Temp 7.23 L ABG pCO2 at Pt Temp 125 H* ABG pO2 at Pt Temp 72 L ABG HCO3 53 H ABG Base Excess (Actual) 18.7 VBG pH 7.30 L VBG pCO2 115 VBG pO2 225 VBG HCO3 57 H VBG O2 Saturation 100.0 VBG Base Excess 23.5 Anion Gap Estim Creat Clear Calc Estimated GFR POC Glucose 186 H Random Glucose Lactic Acid Calcium Total Bilirubin AST ALT Alkaline Phosphatase Troponin I High Sens B-Natriuretic Peptide Total Protein Albumin Urine Color Urine Appearance Urine pH Ur Specific [place] Urine Protein Urine Glucose (UA) Urine Ketones Urine Blood Urine Nitrite Ur Leukocyte Esterase Urine RBC Urine WBC Ur Squamous Epith Cells Urine Bacteria Hyaline Casts COVID-19 (JOSE) COVID-19 Clin Com Influenza Type A (PCR) Influenza Type B (PCR) RSV RNA Qual (PCR) SARS-CoV-2 RNA (RT-PCR) 10/01/22 07:44 MCV MCH MCHC RDW Plt Count MPV Immature Gran % (Auto) Neut % (Auto) Lymph % (Auto) [place] % (Auto) Eos % (Auto) Baso % (Auto) Lymph # (Auto) [place] # (Auto) Eos # (Auto) Baso # (Auto) Abs Immat Gran (auto) Absolute Neuts (auto) Absolute Nucleated RBC Nucleated RBC % (auto) PT INR D-Dimer High Sensitivty O2 Saturation ABG pH at Pt Temp ABG pCO2 at Pt Temp ABG pO2 at Pt Temp ABG HCO3 ABG Base Excess (Actual) VBG pH 7.43 VBG pCO2 85 VBG pO2 38 VBG HCO3 56 H VBG O2 Saturation 74.0 VBG Base Excess 26.0 Anion Gap Estim Creat Clear Calc Estimated GFR POC Glucose Random Glucose Lactic Acid Calcium Total Bilirubin AST ALT Alkaline Phosphatase Troponin I High Sens B-Natriuretic Peptide Total Protein Albumin Urine Color Urine Appearance Urine pH Ur Specific [place] Urine Protein Urine Glucose (UA) Urine Ketones Urine Blood Urine Nitrite Ur Leukocyte Esterase Urine RBC Urine WBC Ur Squamous Epith Cells Urine Bacteria Hyaline Casts COVID-19 (JOSE) COVID-19 Clin Com Influenza Type A (PCR) Influenza Type B (PCR) RSV RNA Qual (PCR) SARS-CoV-2 RNA (RT-PCR) Imaging Radiologist's Impressions: Impressions Chest X-Ray 10/01/22 00:36 IMPRESSION: Equivocal bibasilar airspace opacities, greater on the right side with possible small amount of right-sided pleural fluid. In view of limitations of the study, recommend a repeat imaging with also correlation with a lateral chest radiograph. Abdomen/Pelvis CT 10/01/22 03:46 IMPRESSION: 1. A 4 mm calculus at the right ureterovesical junction produces mild right hydroureteronephrosis. An additional 1 mm calculus is present in the right distal ureter. 2. Multiple additional punctate calculi in the right renal collecting system. 3. Thick-walled bladder with surrounding fat stranding, potentially due to chronic bladder outlet obstruction or cystitis. Borderline prostatomegaly 4. Partial collapse of the left lower lobe, partial collapse of the right lower lobe, and additional atelectasis in the upper lobes. 5. Osteoarthritis in the hips. No acute osseous findings. Fleischner guidelines were followed. Chest CT 10/01/22 03:46 IMPRESSION: 1. Multifocal atelectasis in the lungs with collapse of the right middle and left lower lobes as well as partial collapse of the right lower lobe and subsegmental atelectasis in the upper lobes.. Superimposed consolidation is possible, though not discretely seen. 2. Elevation of the right hemidiaphragm. Fleischner guidelines were followed. Head CT 10/01/22 03:46 IMPRESSION: No acute intracranial pathology. Bilateral mastoid effusions. This may be asymptomatic, though consider correlation for clinical findings of mastoiditis. Assessment and Plan (1) UTI (urinary tract infection): Status: Acute (2) Oxygen dependent: Status: Acute (3) Dementia: Status: Acute (4) COPD (chronic obstructive pulmonary disease): Status: Acute (5) Bipolar disorder: Status: Acute (6) Atrial fibrillation: Status: Acute (7) Acute respiratory failure with hypoxia and hypercarbia: Status: Acute (8) Muscular dystrophy: Status: Acute Plan Assessment: 67-year-old gentleman with underlying dementia and and supplemental oxygen dependent COPD admitted with dyspnea and UTI, initially briefly requiring BiPAP support. Plan: Neuro: No acute issues. Underlying history of frontotemporal dementia and limb-girdle muscle dystrophy. Cardiac: No acute issues. Underlying AFib, continue anticoagulation and beta-chris for rate controlled. Pulmonary: Acute on chronic hypercapnic respiratory failure, likely secondary to iatrogenic hyperoxia on the background of COPD exacerbation, initially briefly requiring BiPAP support. now titrated down to baseline 2 L of supplemental oxygen. Continue with azithromycin, systemic glucocorticoids, and nebulized bronchodilators. Renal: No acute issues. Endo: No acute issues. GI: No acute issues. ID: UTI, culture is pending, continue ceftriaxone. Heme/Onc: No acute issues. Psych: underlying bipolar, appears to have psychotic features as patient home medication includes olanzapine. Will restart on olanzapine. Miscellaneous: No acute issues. Prophylaxis: Apixaban Diet: regular Critical care time spent: 60 minutes
[2022-10-01] MEDS: predniSONE 20 MG TABLET 40 MG PO (10:50)
[2022-10-01] MEDS: Azithromycin 500 MG in 0.9 % Sodium Chloride 250 ML 125 MG IV (10:56)
[2022-10-01] MEDS: Metoprolol Succinate ER 50 MG TAB.ER.24H PO (11:37)
[2022-10-01] MEDS: Apixaban 5 MG TABLET PO (11:37)
--- NOTE | 2022-10-01 12:00 | MHC.CM.PN ---
Pt presents to ICU for respiratory management from [facility]. Pt is pleasant and conversant but not the best historian - information obtained from his activated HCP and sister, Anay. Pt is LTC at SNF, dependent on staff for most ADL's and transfers. Can follow commands and can feed self with set up and occasional assistance. Pt has a MOLST, activated HCP and court appointed conservator for financial needs in chart along w/IMM. Pt will return to [facility] when medically stable via BLS. CM to follow for d/c needs
--- NOTE | 2022-10-01 16:44 | PM.EVENT ---
Event Note Date of Service: 10/02/22 Event Note: patient is with frontotemporal dementia, bipolar, history of muscular dystrophy, AFib on Eliquis.- Admitted to the ICU because of COPD exacerbation requiring BiPAP in in addition found to have UTI. yesterday Patient subsequently taper down from BiPAP to 2 L nasal cannula saturating fine, breathing work was improving- so patient was sent over to floor- overnight decreased responsiveness.ABG with pH 7.15 and pCO2 160.?? patient to ICU for BiPAP need transferred back again this morning- seems somewhat better, still short of breath, but more awake. Physical exam: As per ICU note. Assessment and plan coordinated in ICU note in addition patient has mild hypernatremia: added free water 250 mL q.6 hour, added d5w -repeat sodiumlevels in evening incentive spirometry, chest physiotherapy, PT evaluation in the morning.
[2022-10-01 21:05] LABS: ABG Base Excess 18.8 mmol/L; ABG HCO3 56 mmol/L (22-26); ABG pCO2 160 mmHg (32-45); ABG pH 7.15 (7.35-7.45); ABG pO2 113 mmHg (83-108)
[2022-10-01 21:23] LABS: Glucose, Whole Blood 163 mg/dL (60-115)
--- NOTE | 2022-10-01 21:27 | PM.EVENT ---
Event Note Date of Service: 10/01/22 Event Note: Was called by the nurse for decreased responsiveness. Patient with blood pressure 140/80 with normal heart rate. Maintaining 96% on 3 L supplemental oxygen. Ordered ABG with pH 7.15 and pCO2 160. Tried contacting the healthcare proxy, Anay who is the patient's sister but she did not answer. Will transfer the patient to ICU for BiPAP need. Discussed with David Samaniego, ICU provider.
--- NOTE | 2022-10-01 21:55 | P.EN_ITS ---
Event Note Date of Service: 10/01/22 Event Note: The patient is a 67-year-old gentleman with underlying frontotemporal dementia, bipolar, limb girdle muscular dystrophy, paroxysmal AFib on Eliquis, COPD on supplemental oxygen 2-3 L admitted on 10/01/2022 from custod[facility] facility with complaints of dyspnea.? On ER evaluation patient hyperoxic and hypercapnic requiring BiPAP support.? CT chest with demonstration of chronic atelectasis.?Patient admitted to intensive care unit, titrated off BiPAP to his basal supplemental oxygen rate of 2 L and later transfer to the floor. Tonight, patient obtunded, not responding to painful stimuli, rapid response team called. ABGs obtained 7.15/160/113/56. Patient as noted to be on 3-4L of 02 satting 91- 96% since 1500. patient is deterioration likely from O2 poisoning. Will placed him back on BIPAP and repeat blood gas
--- NOTE | 2022-10-01 22:50 | PC.RT ---
Pt found on 4Lpm via Oxymask with minimal response to verbal and paniful stimuli. O2 saturation in the mid to high 90's. Pt's O2 weaned of completely to target an O2 saturation of 88-92%. Hospitalist notified and requested and ABG. Approximately 10 minutes following wean off of O2 ABG was obtained. ABG as follows 7.15/160/113/56. Pt then placed on Bipap prior to transport to ICU for further care.
--- NOTE | 2022-10-01 22:56 | PC.NURSE ---
2020; Upon assessment of patient, patient lethargic with minimal response to painful stimuli. On assessment, patient on 3-4 liters oxymask with O2 sats of 95%-96%. Patient's O2 goal is 88%-92%; COPD. Respiratory at bedside, Dr. Abdalla notified of patient's status. Hospitalist at bedside, ABGs ordered. Patient became harder to arouse; rapid response called. ABGs results with pH 7.15 and pCO2 160. Patient requiring BiPAP, transferred to ICU. Nurse to nurse report given to ICU.
[2022-10-01 22:59] LABS: ABG Refer to POC result
[2022-10-02] VITALS (18 sets, daily range): BP systolic 106–183; BP diastolic 63–86; PULSE 56–98; RESP 12–28; TEMP 36.6–37.7; O2SAT 91–100; BMI 23.1
[2022-10-02 01:01] LABS: VBG Base Excess 21.4 mmol/L; VBG HCO3 46 mmol/L (22-26); VBG O2 % Saturation < 30.0 %; VBG pCO2 47 mmHg; VBG pH 7.59 (7.32-7.43); VBG pO2 14 mmHg
--- NOTE | 2022-10-02 03:54 | PC.NURSE ---
CARE ASSUMED 23:15...AWAKE...DISORIENTED..INTERMITTANTLY RESTLESS...PULLING ON BIPAP MASK AND/OR LEADS...BIPAP 18/6 AND 21% O2....REPEAT GAS DRAWN..pH 7.59/PCO2 47...LCAC RADAR OPERATOR/NAVIGATOR PRESENT...TRIALED OFF BIPAP AND PLACED ON 1 L/M CANNULA..RAPIDLY BECAME UNRESPONSIVE AND SAO2 54%...NO RESPONSE TO STERNAL RUB...RETURNED TO BIPAP WITH GRADUAL IMPROVED SATURATION AND RETURN TO NEURO BASE-LINE..AWAKE...[place]...INTERMITTANTLY RESTLESS...TELE-CAMERA IN PLACE FOR SAFETY
[2022-10-02 05:37] LABS: VBG Base Excess 22.5 mmol/L; VBG HCO3 46 mmol/L (22-26); VBG pCO2 44 mmHg; VBG pH 7.62 (7.32-7.43); VBG pO2 19 mmHg
[2022-10-02 05:54] LABS: MANUAL DIFF FLAG NO
[2022-10-02 05:55] LABS: Basophils Percent Auto 0.1 % (0-2); Hematocrit 44.8 % (42.0-52.0); Hemoglobin 13.6 g/dl (14.0-18.0); Imm Gran Abs Auto 0.07 X10*3/uL (0.00-0.03); Imm Gran Pct Auto 0.7 % (0.0-0.4); Lymphocytes Absolute Auto 1.2 X10*3/uL (1.2-4.9); Lymphocytes Percent Auto 11.5 % (20-40); Mean Corpuscular HGB Conc 30.4 g/dl (31.0-36.0); Mean Corpuscular Hemoglobin 31.9 pg (27.0-33.0); Mean Corpuscular Volume 105.2 fL (80.0-98.0); Mean Platelet Volume 9.4 fL (9.4-12.4); Monocytes Absolute Auto 1.1 X10*3/uL (0.1-1.2); Monocytes Percent Auto 10.7 % (2-11); NRBC Pct Auto 0.2 /100WBC (0.0-0.2); Platelet Count 300 X10*3/uL (160-400); Red Blood Count 4.26 X10*6/uL (4.60-5.80); Red Cell Distribution Width 11.9 % (11.0-16.0); White Blood Count 10.4 X10*3/uL (4.8-10.8)
[2022-10-02 06:33] LABS: Albumin Level 3.7 g/dL (3.5-5.0); Anion Gap 18 (12-20); Blood Urea Nitrogen 27 mg/dL (9-16); Calcium 10.5 mg/dL (8.4-10.2); Carbon Dioxide 41 mmol/L (22-29); Chloride 95 mmol/L (96-108); Creatinine Clr Calc Pharmacy 111.6; Estimated Glomerular Filt Rate > 60; Glucose Random 123 mg/dL (60-115); Magnesium 2.2 mg/dL (1.6-2.6); Phosphorus 0.8 mg/dL (2.7-4.5); Potassium 3.3 mmol/L (3.3-5.1); Sodium 151 mmol/L (135-145)
[2022-10-02 06:36] LABS: Venous Blood Gas Refer to POC result
[2022-10-02 06:40] LABS: Venous Blood Gas Refer to POC result
[2022-10-02] MEDS: Potassium Phosphate/NS 15 MMOL/250 ML PLAST..BAG 62.5 MMOL IV ×2 (07:37→14:51)
[2022-10-02] MEDS: acetaZOLAMIDE sodium 500 MG VIAL 375 MG IVPUSH (07:40)
[2022-10-02] MEDS: Albuterol/Iprat 2.5/0.5MG 3 ML AMPUL.NEB INHALE ×3 (08:37→20:52)
[2022-10-02] MEDS: cefTRIAXone sodium 1 GM in 0.9 % Sodium Chloride 50 ML IV (08:55)
[2022-10-02] MEDS: Azithromycin 500 MG in 0.9 % Sodium Chloride 250 ML 125 MG IV (09:46)
[2022-10-02] MEDS: Apixaban 5 MG TABLET PO ×2 (09:46→20:07)
[2022-10-02] MEDS: predniSONE 20 MG TABLET 40 MG PO (09:46)
[2022-10-02] MEDS: Metoprolol Succinate ER 50 MG TAB.ER.24H PO (09:46)
--- NOTE | 2022-10-02 11:01 | PC.NURSE ---
Patient complaining of feeling anxious stating Im having a panic attack . Patient requesting valium. MD notified. Atarax ordered and pending from pharmacy. Patient currently sating 90% on 0.5L NC. Handoff given to [facility] RN - [facility] RN aware of current order of maintaining O2 sat between 88-92%.
[2022-10-02] MEDS: hydrOXYzine HCL 25 MG TABLET PO (11:10)
--- NOTE | 2022-10-02 11:19 | P.PNCC_ITS ---
Subjective Subjective Date of Service: 10/02/22 Interval History: 67-year-old gentleman with underlying frontotemporal dementia, bipolar, limb girdle muscular dystrophy, paroxysmal AFib on Eliquis, COPD on supplemental oxygen 2-3 L admitted on 10/01/2022 from custodial facility with complaints of dyspnea. On ER evaluation patient hyperoxic and hypercapnic requiring BiPAP support. CT chest with demonstration of chronic atelectasis. Laboratory studies source of notable for likely developing urinary tract infection. Patient admitted to intensive care unit, titrated off BiPAP to his basal supplemental oxygen rate of 2 L. started on ceftriaxone for UTI and azithromycin for COPD exacerbation.[facility] around 14:00 on 10/01/2022. Excessive supplemental oxygen was applied there and he redeveloped iatrogenic hyperoxia with hypercapnia requiring initiation of BiPAP support and transfer back to the intensive care unit. Patient was titrated off BiPAP support overnight. Critical Care Time (minutes): 0 Physical Exam Vital Signs: Vital Signs: Last Vital Signs Temp 98.9 F 10/02/22 08:00 Pulse 91 10/02/22 10:00 Resp 24 H 10/02/22 10:00 BP 144/75 H 10/02/22 10:00 Pulse Ox 91 L 10/02/22 10:00 O2 Del Method 10/02/22 10:00 O2 Flow Rate 0.5 10/02/22 10:00 FiO2 21 10/02/22 09:00 Oxygen Flow Rate 6 10/01/22 00:07 BMI result Body Mass Index 23.1 Const: General: no acute distress, alert and awake Eyes: Sclerae: sclerae normal EOM: EOMs intact bilaterally Neck: Neck: Yes no lymphadenopathy, Yes trachea midline and Yes supple Resp: Effort & Inspection: normal respiratory effort and no respiratory distress Auscultation: clear to auscultation bilaterally Cardio: Rate: regular rate Rhythm: regular rhythm Heart sounds: no gallops, no murmurs and no rubs GI: Palpation (GI): Soft to palpation and Other GI palpation findings present ( Nontender) Auscultation: normal bowel sounds Extrem: General: Yes no pedal edema, No clubbing and No cyanosis Objective Data Labs CBC & Chem 7: 10/02/22 05:23 10/02/22 05:24 Labs: Laboratory Results - last 24 hr 10/01/22 10/01/22 10/02/22 20:58 21:18 00:51 WBC RBC Hgb Hct MCV MCH MCHC RDW Plt Count MPV Immature Gran % (Auto) Neut % (Auto) Lymph % (Auto) [place] % (Auto) Eos % (Auto) Baso % (Auto) Lymph # (Auto) [place] # (Auto) Eos # (Auto) Baso # (Auto) Abs Immat Gran (auto) Absolute Neuts (auto) Absolute Nucleated RBC Nucleated RBC % (auto) O2 Saturation 98.0 ABG pH at Pt Temp 7.15 L* ABG pCO2 at Pt Temp 160 H* ABG pO2 at Pt Temp 113 H ABG HCO3 56 H ABG Base Excess (Actual) 18.8 VBG pH 7.59 H VBG pCO2 47 VBG pO2 14 VBG HCO3 46 H VBG O2 Saturation < 30.0 VBG Base Excess 21.4 Sodium Potassium Chloride Carbon Dioxide Anion Gap BUN Creatinine Estim Creat Clear Calc Estimated GFR POC Glucose 163 H Random Glucose Calcium Phosphorus Magnesium Albumin 10/02/22 10/02/22 10/02/22 05:23 05:24 05:27 WBC 10.4 RBC 4.26 L Hgb 13.6 L Hct 44.8 MCV 105.2 H MCH 31.9 MCHC 30.4 L RDW 11.9 Plt Count 300 MPV 9.4 Immature Gran % (Auto) 0.7 H Neut % (Auto) 77.0 H Lymph % (Auto) 11.5 L [place] % (Auto) 10.7 Eos % (Auto) 0.0 Baso % (Auto) 0.1 Lymph # (Auto) 1.2 [place] # (Auto) 1.1 Eos # (Auto) 0.0 Baso # (Auto) 0.0 Abs Immat Gran (auto) 0.07 H Absolute Neuts (auto) 8.0 Absolute Nucleated RBC 0.020 H Nucleated RBC % (auto) 0.2 O2 Saturation ABG pH at Pt Temp ABG pCO2 at Pt Temp ABG pO2 at Pt Temp ABG HCO3 ABG Base Excess (Actual) VBG pH 7.62 H* VBG pCO2 44 VBG pO2 19 VBG HCO3 46 H VBG O2 Saturation 30.0 VBG Base Excess 22.5 Sodium 151 H Potassium 3.3 D Chloride 95 L Carbon Dioxide 41 H* Anion Gap 18 BUN 27 H Creatinine 0.72 Estim Creat Clear Calc 111.6 Estimated GFR > 60 POC Glucose Random Glucose 123 H Calcium 10.5 H D Phosphorus 0.8 L* Magnesium 2.2 Albumin 3.7 Microbiology Microbiology Results: Microbiology 10/01/22 Unknown Urine clean catch - Urine rodríguez top Urine Culture - Final 10/01/22 00:46 Blood - Venous Blood Culture - Preliminary No growth after 24 hours. 10/01/22 00:28 Blood - Venous Blood Culture - Preliminary No growth after 24 hours. Progress Note: A&P Assessment and plan (1) Muscular dystrophy: Status: Acute (2) UTI (urinary tract infection): Status: Acute (3) Oxygen dependent: Status: Acute (4) COPD (chronic obstructive pulmonary disease): Status: Acute (5) Bipolar disorder: Status: Acute (6) Atrial fibrillation: Status: Acute (7) Acute respiratory failure with hypoxia and hypercarbia: Status: Acute (8) History of chronic carbon dioxide retention: Status: Acute Plan Assessment: 67-year-old gentleman with underlying dementia and and supplemental oxygen dependent COPD admitted with dyspnea and UTI, initially briefly requiring BiPAP support. Plan: Neuro: No acute issues. Underlying history of frontotemporal dementia and limb-girdle muscle dystrophy. Cardiac: No acute issues. Underlying AFib, continue anticoagulation and beta- chris for rate controlled. Pulmonary: Acute on chronic hypercapnic respiratory failure, likely secondary to iatrogenic hyperoxia on the background of COPD exacerbation, again briefly requiring BiPAP support. now titrated down to baseline 1-2 L of supplemental oxygen. Continue with azithromycin, systemic glucocorticoids, and nebulized bronchodilators. nocturnal BiPAP and as needed for naps. Renal: No acute issues. Endo: No acute issues. GI: No acute issues. ID: UTI, culture is pending, continue ceftriaxone. Heme/Onc: No acute issues. Psych: underlying bipolar, appears to have psychotic features as patient home medication includes olanzapine. Miscellaneous: No acute issues. Prophylaxis: Apixaban Diet: regular Quality Stroke Does the patient have a stroke diagnosis?: No VTE Prior VTE?: No VTE Risk Level:: Medical - moderate - high VTE Device Contraindication: N/A - Device Ordered VTE Drug Contraindication: N/A - Med Ordered
[2022-10-02] MEDS: Dextrose 5 % 1,000 ML 50 ML IVCONT (16:02)
[2022-10-02 20:18] LABS: Sodium 150 mmol/L (135-145)
--- NOTE | 2022-10-02 22:54 | PC.NURSE ---
pt complained of being sob after being switched from nasal canula to Bipap. Pt's 02 was hovering around 74% so respiratory was called back to revalute pt. call center analyst MD came to assess pt as well. Following adjustment of Bipap pt is resting comfortably in no apparent distress. will continue to monitor.
[2022-10-03] VITALS (13 sets, daily range): BP systolic 158–178; BP diastolic 71–88; PULSE 55–76; RESP 14–22; TEMP 36.4–37.1; O2SAT 91–95; BMI 23.1
--- NOTE | 2022-10-03 | ECG_ITS ---
Test Reason : cp Blood Pressure : / mmHG Vent. Rate : 049 BPM Atrial Rate : 049 BPM P-R Int : 154 ms QRS Dur : 098 ms QT Int : 456 ms P-R-T Axes : 059 059 068 degrees QTc Int : 411 ms Sinus bradycardia Minimal voltage criteria for LVH, may be normal variant ( Sokolow-Gonzalez ) Nonspecific ST abnormality Abnormal ECG When compared with ECG of 01-OCT-2022 00:36, Vent. rate has decreased BY 28 BPM Referred By: Rashard aGnt Electronically Signed By:SHADI WILSON MD
--- NOTE | 2022-10-03 05:50 | PM.EVENT ---
Event Note Date of Service: 10/03/22 Event Note: Patient bradycardic with a heart rate down to 30s and 40s. Asymptomatic. Will obtain EKG
[2022-10-03 07:32] LABS: MANUAL DIFF FLAG NO
[2022-10-03 07:41] LABS: Basophils Percent Auto 0.1 % (0-2); Eosinophils Absolute Auto 0.1 X10*3/uL (0.0-0.4); Eosinophils Percent Auto 0.6 % (0-4); Hematocrit 39.5 % (42.0-52.0); Hemoglobin 12.4 g/dl (14.0-18.0); Imm Gran Abs Auto 0.05 X10*3/uL (0.00-0.03); Imm Gran Pct Auto 0.5 % (0.0-0.4); Lymphocytes Absolute Auto 2.8 X10*3/uL (1.2-4.9); Lymphocytes Percent Auto 27.3 % (20-40); Mean Corpuscular HGB Conc 31.4 g/dl (31.0-36.0); Mean Corpuscular Hemoglobin 31.6 pg (27.0-33.0); Mean Corpuscular Volume 100.8 fL (80.0-98.0); Mean Platelet Volume 9.3 fL (9.4-12.4); Monocytes Absolute Auto 0.8 X10*3/uL (0.1-1.2); Monocytes Percent Auto 7.8 % (2-11); Neutrophils Absolute Auto 6.4 x10*3/uL (2.0-8.3); Neutrophils Percent Auto 63.7 % (45-73); Platelet Count 263 X10*3/uL (160-400); Red Blood Count 3.92 X10*6/uL (4.60-5.80); Red Cell Distribution Width 12.2 % (11.0-16.0); White Blood Count 10.1 X10*3/uL (4.8-10.8)
[2022-10-03] MEDS: Albuterol/Iprat 2.5/0.5MG 3 ML AMPUL.NEB INHALE ×2 (07:47→14:53)
[2022-10-03] MEDS: Metoprolol Succinate ER 50 MG TAB.ER.24H PO (08:28)
[2022-10-03] MEDS: predniSONE 20 MG TABLET 40 MG PO (08:28)
[2022-10-03] MEDS: Apixaban 5 MG TABLET PO ×2 (08:28→21:18)
[2022-10-03 08:33] LABS: Albumin Level 3.1 g/dL (3.5-5.0); Anion Gap 13 (12-20); Blood Urea Nitrogen 25 mg/dL (9-16); Carbon Dioxide 39 mmol/L (22-29); Chloride 98 mmol/L (96-108); Estimated Glomerular Filt Rate > 60; Glucose Random 113 mg/dL (60-115); Magnesium 2.2 mg/dL (1.6-2.6); Phosphorus 2.3 mg/dL (2.7-4.5); Potassium 3.8 mmol/L (3.3-5.1); Sodium 146 mmol/L (135-145); Thyroid Stimulating Hormone 0.39 uIU/mL (0.32-4.0)
[2022-10-03] MEDS: cefTRIAXone sodium 1 GM in 0.9 % Sodium Chloride 50 ML IV (08:33)
[2022-10-03] MEDS: Azithromycin 500 MG in 0.9 % Sodium Chloride 250 ML 125 MG IV (08:39)
[2022-10-03 11:27] LABS: Venous Blood Gas Refer to POC result
[2022-10-03 11:29] LABS: VBG Base Excess 14.6 mmol/L; VBG HCO3 40 mmol/L (22-26); VBG pCO2 54 mmHg; VBG pH 7.47 (7.32-7.43); VBG pO2 85 mmHg
[2022-10-03] MEDS: hydrOXYzine HCL 25 MG TABLET PO (11:46)
--- NOTE | 2022-10-03 12:20 | P.PNIM_ITS ---
Subjective Subjective Date of Service: 10/03/22 Interval History: Patient admitted for COPD exacerbation, UTI, in addition has frontotemporal dementia Review of Systems patient is t agitated, refusing some of the treatment intermittent. Denies any chest pain but has short of breath Physical Exam Vital Signs: Vital Signs: Last Vital Signs Temp 98.8 F 10/03/22 07:35 Pulse 55 10/03/22 07:50 Resp 20 10/03/22 07:50 BP 178/86 H 10/03/22 07:35 Pulse Ox 91 L 10/03/22 07:35 O2 Del Method 10/03/22 07:35 O2 Flow Rate 1 10/03/22 07:35 FiO2 21 10/02/22 09:00 Oxygen Flow Rate 6 10/01/22 00:07 BMI result Body Mass Index 23.1 Appearance: Alert.? awake ,but agiatated cvs: rrr, [id number] , no murmur res:air enrty slightly improving,still b/l wheezin abd: no rebound or guarding ,nt, bs present. ext pulses present , no cyanosis . neuro: axo3 , nonfocal. Objective Data Active Medications Albuterol/Ipratropium (Albuterol/Iprat 2.5/0.5mg 3 Ml Ampul.Neb) 3 ml INHALE RQ6H WHILE AWAKE [facility] Last Admin: 10/03/22 07:47 Dose: 3 ml Documented By: ANGÉLICA Apixaban (Apixaban 5 Mg Tablet) 5 mg PO BID [facility] Last Admin: 10/03/22 08:28 Dose: 5 mg Documented By: RENETTA Ceftriaxone Sodium 1 gm/ (Sodium Chloride) 50 mls @ 100 mls/hr IV Q24H [facility] Last Infusion: 10/03/22 09:26 Dose: 0 mls/hr Documented By: RENETTA Azithromycin 500 mg/ Sodium (Chloride) 250 mls @ 125 mls/hr IV Q24H [facility] Last Infusion: 10/03/22 11:11 Dose: 0 mls/hr Documented By: RENETTA Metoprolol Succinate (Metoprolol Succinate Er 50 Mg Tab.Er.24h) 50 mg PO DAILY [facility]; Protocol Last Admin: 10/03/22 08:28 Dose: 50 mg Documented By: RENETTA Prednisone (Prednisone 20 Mg Tablet) 40 mg PO DAILY [facility] Last Admin: 10/03/22 08:28 Dose: 40 mg Documented By: RENETTA Labs CBC & Chem 7: 10/03/22 06:35 10/03/22 06:35 Labs: Laboratory Results - last 24 hr 10/03/22 10/03/22 10/03/22 06:35 06:35 06:35 MCV 100.8 H MCH 31.6 MCHC 31.4 RDW 12.2 Plt Count 263 MPV 9.3 L Immature Gran % (Auto) 0.5 H Neut % (Auto) 63.7 Lymph % (Auto) 27.3 [place] % (Auto) 7.8 Eos % (Auto) 0.6 Baso % (Auto) 0.1 Lymph # (Auto) 2.8 [place] # (Auto) 0.8 Eos # (Auto) 0.1 Baso # (Auto) 0.0 Abs Immat Gran (auto) 0.05 H Absolute Neuts (auto) 6.4 Absolute Nucleated RBC 0.000 Nucleated RBC % (auto) 0.0 VBG pH VBG pCO2 VBG pO2 VBG HCO3 VBG O2 Saturation VBG Base Excess Anion Gap 13 Cancelled Estim Creat Clear Calc 149.0 Cancelled Estimated GFR > 60 Cancelled Random Glucose 113 Cancelled Calcium 9.0 D Cancelled Phosphorus 2.3 L Magnesium 2.2 Albumin 3.1 L TSH 0.39 Cancelled 10/03/22 11:24 MCV MCH MCHC RDW Plt Count MPV Immature Gran % (Auto) Neut % (Auto) Lymph % (Auto) [place] % (Auto) Eos % (Auto) Baso % (Auto) Lymph # (Auto) [place] # (Auto) Eos # (Auto) Baso # (Auto) Abs Immat Gran (auto) Absolute Neuts (auto) Absolute Nucleated RBC Nucleated RBC % (auto) VBG pH 7.47 H VBG pCO2 54 VBG pO2 85 VBG HCO3 40 H VBG O2 Saturation 98.0 VBG Base Excess 14.6 Anion Gap Estim Creat Clear Calc Estimated GFR Random Glucose Calcium Phosphorus Magnesium Albumin TSH Microbiology Microbiology Results: Microbiology 10/01/22 00:46 Blood Culture - Preliminary Blood - Venous No growth after 48 hours. 10/01/22 00:28 Blood Culture - Preliminary Blood - Venous No growth after 48 hours. 10/01/22 Unknown Urine Culture - Final Urine clean catch - Urine rodríguez top Assessment and Plan (1) Muscular dystrophy: Status: Acute (2) UTI (urinary tract infection): Status: Acute (3) Oxygen dependent: Status: Acute (4) Dementia: Status: Acute (5) COPD (chronic obstructive pulmonary disease): Status: Acute (6) Acute respiratory failure with hypoxia and hypercarbia: Status: Acute Plan acute hypoxemic/ hypercarbic respiratory failure secondary to COPD exacerbation: continue nebs, oxygen, steroids, IV antibiotics monitor closely. Bradycardia episode overnight: patient is asymptomatic, currently heart rate is in 60-70. TSH normal, currently in sinus rhythm adjusted metoprolol Continue to monitor possible history ofAtrial fibrillation: continue Eliquis, metoprolol. uti: continue ceftriaxone day2 follow urine cultures Bipolar disorder?: satrted his home meds, added hydraxizine x1 dose for agitation seems to be calm after that. Dementia/frontotemproal dementia: continue supportive care ,home meds added. added psych eval -for above ,if needed also might need eval for capacity Hypertension: adjusted metoprolol to 25mg home dose. Muscular dystrophy: supportive care Oxygen dependent inaptient need:acute hypoxemic/ hypercarbic respiratory failure secondary to COPD exacerbation: need IV steroids, antibiotics, oxygen and UTI was antibiotics, Urine culture pending. Also be Behaviorally agitated with frontotemporal dementia need psych evaluation as above/ may need capacity evaluation. Quality Stroke Does the patient have a stroke diagnosis?: No VTE Prior VTE?: No VTE Risk Level:: Medical - moderate - high VTE Device Contraindication: N/A - Device Ordered VTE Drug Contraindication: N/A - Med Ordered
--- NOTE | 2022-10-03 12:35 | PM.PSYCN ---
History of Present Illness Date of Service: 10/03/22 Chief Complaint: Acute resp failure Reason for Consult: Capacity, dispo Requesting physician: Willy Dowling Discussed with referring provider: Yes Sources of Information: patient interviewed and chart reviewed HPI Narrative: Randall is a 67 y.o. man who carries a dx of MDD recurrent. He has past medical hx of frontotemporal dementia, bipolar, limb girdle muscular dystrophy, paroxysmal AFib on Eliquis, chronic atelectasis, and COPD on supplemental oxygen 2-3 L. Pt [place] [facility] [place] [facility] SNF due to dyspnea, COPD exacerbation, and UTI. He is currently on Prozac 30 mg daily, Zyprexa 2.5 mg, and has received hydroxyzine 25 mg for acute anxiety while at the hospital. Patient initially admitted to ICU, has since been titrated off BiPAP to his basal supplemental oxygen rate of 2 L. He was started on ceftriaxone for UTI and azithromycin for COPD exacerbation. ? Psych consult placed as pt has been refusing treatment with antibiotic. Seen for capacity and dispo to psych inpatient. I spoke with pt this evening. He says he has had issues pneumonia and understands he has SOB related to his COPD, does not remember he was also diagnosed with a UTI. Pt says ?I have no strength, I cannot walk or stand up,? appears to understand his medical conditions. Pt says he stopped the antibiotic because ?I realize I have the right to refuse any treatment, I dont want that.? Pt says he intends to refuse most treatments other than for comfort or pain because he leads a ?miserable existence with this ailment, I have nothing to live for? referring to his muscular dystrophy. He denies feeling depressed, however he does admit to feeling suicidal x 2 months. No recent changes in his psych meds, as he has been on Prozac for 30 yrs at the same dose, ?I think prozac is amazing.? Says his sleep comes and goes, his energy is not very good. 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 He thought he could take ?an injection of human growth hormone? and that ?I always thought there probably was treatment,? however he realized ?that there was no treatment or care for my condition.? Now feels ?all hope is gone.? Says he has felt more dismayed as his disease has progressed with age and that ?life was pretty good up until age 50, I was able to do most of the things I wanted to do even though I had tremendous pain.? He was able to graduate phi racheal [employer] from [employer], got his XIAO at [place], was ?always able to go out and make money.? Now says he cant ambulate easily and feels fatigued. He doesnt have funds anymore. He doesnt feel capable of working. Pt says he feels ?relieved? at not having IVs in and at refusing treatment. He denies anxiety. He does not currently have a HCP but says his family is aware that he is a DNR and is refusing medical treatment. His parents are alive (age 100) and he has brothers, 2 children, says they'll be fine without me.? Performed mental status exam, pt is alert and oriented. Medical Evaluation Reviewed: Yes [facility] Medical History (Updated 10/06/22 @ 16:16 by Willy Dowling MD) Acute on chronic respiratory failure with hypoxia and hypercapnia Atrial fibrillation Bipolar disorder COPD (chronic obstructive pulmonary disease) Dementia Hypertension Muscular dystrophy Oxygen dependent Respiratory failure with hypercapnia Diagnostics Vital Signs (24Hr): Vital Signs - 24 hr 10/02/22 15:27 10/02/22 16:00 10/02/22 20:00 Temperature 98.8 F 98.4 F Pulse Rate 81 78 68 Respiratory Rate 18 12 20 Blood Pressure 171/81 H 183/86 H Pulse Oximetry 92 91 L Oxygen Delivery Method Nasal Cannula Nasal Cannula Oxygen Flow Rate 0.5 0.5 10/02/22 20:52 10/02/22 20:53 10/02/22 22:24 Temperature Pulse Rate 68 Respiratory Rate 20 20 18 Blood Pressure Pulse Oximetry Oxygen Delivery Method Oxygen Flow Rate 10/03/22 00:00 10/03/22 00:34 10/03/22 03:56 Temperature 98.3 F 98.6 F Pulse Rate 55 60 Respiratory Rate 18 18 14 Blood Pressure 165/86 H 175/88 H Pulse Oximetry 95 93 Oxygen Delivery Method Room Air CPAP CPAP Oxygen Flow Rate 10/03/22 04:36 10/03/22 06:00 10/03/22 07:35 Temperature 98.8 F Pulse Rate 59 Respiratory Rate 20 18 22 H Blood Pressure 178/86 H Pulse Oximetry 91 L Oxygen Delivery Method Nasal Cannula Oxygen Flow Rate 1 10/03/22 07:50 Temperature Pulse Rate 55 Respiratory Rate 20 Blood Pressure Pulse Oximetry Oxygen Delivery Method Oxygen Flow Rate BMI result Body Mass Index 23.1 Labs Results: 10/03/22 06:35 10/07/22 06:16 Labs: Laboratory Results - last 48 hr 10/01/22 10/01/22 10/02/22 20:58 21:18 00:51 WBC RBC Hgb Hct MCV MCH MCHC RDW Plt Count MPV Immature Gran % (Auto) Neut % (Auto) Lymph % (Auto) Dane % (Auto) Eos % (Auto) Baso % (Auto) Lymph # (Auto) Dane # (Auto) Eos # (Auto) Baso # (Auto) Abs Immat Gran (auto) Absolute Neuts (auto) Absolute Nucleated RBC Nucleated RBC % (auto) O2 Saturation 98.0 ABG pH at Pt Temp 7.15 L* ABG pCO2 at Pt Temp 160 H* ABG pO2 at Pt Temp 113 H ABG HCO3 56 H ABG Base Excess (Actual) 18.8 VBG pH 7.59 H VBG pCO2 47 VBG pO2 14 VBG HCO3 46 H VBG O2 Saturation < 30.0 VBG Base Excess 21.4 Sodium Potassium Chloride Carbon Dioxide Anion Gap BUN Creatinine Estim Creat Clear Calc Estimated GFR POC Glucose 163 H Random Glucose Calcium Phosphorus Magnesium Albumin TSH 10/02/22 10/02/22 10/02/22 05:23 05:24 05:27 WBC 10.4 RBC 4.26 L Hgb 13.6 L Hct 44.8 MCV 105.2 H MCH 31.9 MCHC 30.4 L RDW 11.9 Plt Count 300 MPV 9.4 Immature Gran % (Auto) 0.7 H Neut % (Auto) 77.0 H Lymph % (Auto) 11.5 L Dane % (Auto) 10.7 Eos % (Auto) 0.0 Baso % (Auto) 0.1 Lymph # (Auto) 1.2 Dane # (Auto) 1.1 Eos # (Auto) 0.0 Baso # (Auto) 0.0 Abs Immat Gran (auto) 0.07 H Absolute Neuts (auto) 8.0 Absolute Nucleated RBC 0.020 H Nucleated RBC % (auto) 0.2 O2 Saturation ABG pH at Pt Temp ABG pCO2 at Pt Temp ABG pO2 at Pt Temp ABG HCO3 ABG Base Excess (Actual) VBG pH 7.62 H* VBG pCO2 44 VBG pO2 19 VBG HCO3 46 H VBG O2 Saturation 30.0 VBG Base Excess 22.5 Sodium 151 H Potassium 3.3 D Chloride 95 L Carbon Dioxide 41 H* Anion Gap 18 BUN 27 H Creatinine 0.72 Estim Creat Clear Calc 111.6 Estimated GFR > 60 POC Glucose Random Glucose 123 H Calcium 10.5 H D Phosphorus 0.8 L* Magnesium 2.2 Albumin 3.7 TSH 10/02/22 10/03/22 10/03/22 20:02 06:35 06:35 WBC 10.1 RBC 3.92 L Hgb 12.4 L Hct 39.5 L MCV 100.8 H MCH 31.6 MCHC 31.4 RDW 12.2 Plt Count 263 MPV 9.3 L Immature Gran % (Auto) 0.5 H Neut % (Auto) 63.7 Lymph % (Auto) 27.3 Dane % (Auto) 7.8 Eos % (Auto) 0.6 Baso % (Auto) 0.1 Lymph # (Auto) 2.8 Dane # (Auto) 0.8 Eos # (Auto) 0.1 Baso # (Auto) 0.0 Abs Immat Gran (auto) 0.05 H Absolute Neuts (auto) 6.4 Absolute Nucleated RBC 0.000 Nucleated RBC % (auto) 0.0 O2 Saturation ABG pH at Pt Temp ABG pCO2 at Pt Temp ABG pO2 at Pt Temp ABG HCO3 ABG Base Excess (Actual) VBG pH VBG pCO2 VBG pO2 VBG HCO3 VBG O2 Saturation VBG Base Excess Sodium 150 H 146 H Potassium 3.8 Chloride 98 Carbon Dioxide 39 H Anion Gap 13 BUN 25 H Creatinine 0.54 Estim Creat Clear Calc 149.0 Estimated GFR > 60 POC Glucose Random Glucose 113 Calcium 9.0 D Phosphorus 2.3 L Magnesium 2.2 Albumin 3.1 L TSH 0.39 10/03/22 10/03/22 06:35 11:24 WBC RBC Hgb Hct MCV MCH MCHC RDW Plt Count MPV Immature Gran % (Auto) Neut % (Auto) Lymph % (Auto) Dane % (Auto) Eos % (Auto) Baso % (Auto) Lymph # (Auto) Dane # (Auto) Eos # (Auto) Baso # (Auto) Abs Immat Gran (auto) Absolute Neuts (auto) Absolute Nucleated RBC Nucleated RBC % (auto) O2 Saturation ABG pH at Pt Temp ABG pCO2 at Pt Temp ABG pO2 at Pt Temp ABG HCO3 ABG Base Excess (Actual) VBG pH 7.47 H VBG pCO2 54 VBG pO2 85 VBG HCO3 40 H VBG O2 Saturation 98.0 VBG Base Excess 14.6 Sodium Cancelled Potassium Cancelled Chloride Cancelled Carbon Dioxide Cancelled Anion Gap Cancelled BUN Cancelled Creatinine Cancelled Estim Creat Clear Calc Cancelled Estimated GFR Cancelled POC Glucose Random Glucose Cancelled Calcium Cancelled Phosphorus Magnesium Albumin TSH Cancelled Imaging Radiology Impressions: ITS Impressions Chest X-Ray 10/01/22 00:36 IMPRESSION: Equivocal bibasilar airspace opacities, greater on the right side with possible small amount of right-sided pleural fluid. In view of limitations of the study, recommend a repeat imaging with also correlation with a lateral chest radiograph. Abdomen/Pelvis CT 10/01/22 03:46 IMPRESSION: 1. A 4 mm calculus at the right ureterovesical junction produces mild right hydroureteronephrosis. An additional 1 mm calculus is present in the right distal ureter. 2. Multiple additional punctate calculi in the right renal collecting system. 3. Thick-walled bladder with surrounding fat stranding, potentially due to chronic bladder outlet obstruction or cystitis. Borderline prostatomegaly 4. Partial collapse of the left lower lobe, partial collapse of the right lower lobe, and additional atelectasis in the upper lobes. 5. Osteoarthritis in the hips. No acute osseous findings. Fleischner guidelines were followed. Chest CT 10/01/22 03:46 IMPRESSION: 1. Multifocal atelectasis in the lungs with collapse of the right middle and left lower lobes as well as partial collapse of the right lower lobe and subsegmental atelectasis in the upper lobes.. Superimposed consolidation is possible, though not discretely seen. 2. Elevation of the right hemidiaphragm. Fleischner guidelines were followed. Head CT 10/01/22 03:46 IMPRESSION: No acute intracranial pathology. Bilateral mastoid effusions. This may be asymptomatic, though consider correlation for clinical findings of mastoiditis. Mental Status Exam Mental Status Exam Narrative: A&O. Unkempt, frail, in hospital attire. Poor eye contact, attentive. No Tics or Tremors. No abnormal involuntary movements. Calm, cooperative, engaged. Non-pressured speech, slowed, spontaneous, soft spoken. No prolonged speech latency or dysarthria. Mood is ?good,? affect is euthymic. Denies SI/SIB/HI upon inquiry. Denies A/VH or delusional thought content. Thoughts are coherent, organized. No known cognitive or memory impairment. Insight/ Judgment fair and adequate. Medications Medications Current Medications Albuterol/Ipratropium (Albuterol/Iprat 2.5/0.5mg 3 Ml Ampul.Neb) 3 ml INHALE RQ6H WHILE AWAKE [facility] Last Admin: 10/03/22 07:47 Dose: 3 ml Apixaban (Apixaban 5 Mg Tablet) 5 mg PO BID [facility] Last Admin: 10/03/22 08:28 Dose: 5 mg Cyanocobalamin (Cyanocobalamin (Vitamin B-12) 1,000 Mcg Tablet) 1,000 mcg PO DAILY [facility] Docusate Sodium (Docusate Sodium 100 Mg Capsule) 100 mg PO BID [facility] Fluoxetine HCl (Fluoxetine Hcl 10 Mg Capsule) 10 mg PO DAILY [facility] Fluoxetine HCl (Fluoxetine Hcl 20 Mg Capsule) 20 mg PO DAILY [facility] Ceftriaxone Sodium 1 gm/ (Sodium Chloride) 50 mls @ 100 mls/hr IV Q24H [facility] Last Infusion: 10/03/22 09:26 Dose: Infused Azithromycin 500 mg/ Sodium (Chloride) 250 mls @ 125 mls/hr IV Q24H [facility] Last Infusion: 10/03/22 11:11 Dose: Infused Loperamide HCl (Loperamide Hcl 2 Mg Capsule) 2 mg PO TID PRN PRN Reason: Diarrhea Melatonin (Melatonin 3 Mg Tablet) 6 mg PO BEDTIME [facility] Metoprolol Succinate (Metoprolol Succinate Er 50 Mg Tab.Er.24h) 50 mg PO DAILY [facility]; Protocol Last Admin: 10/03/22 08:28 Dose: 50 mg Olanzapine (Olanzapine 2.5 Mg Tablet) 2.5 mg PO BEDTIME [facility] Prednisone (Prednisone 20 Mg Tablet) 40 mg PO DAILY [facility] Last Admin: 10/03/22 08:28 Dose: 40 mg Ropinirole HCl (Ropinirole Hcl 0.25 Mg Tablet) 0.25 mg PO BEDTIME [facility] Allergies Allergies Allergy/AdvReac Type Severity Reaction Status Date / Time No Known Allergies Allergy Verified 10/01/22 00:06 Assessment & Plan Assessment & Plan (1) MDD (major depressive disorder), recurrent episode, moderate: Status: Acute Code(s): F33.1 - Major depressive disorder, recurrent, moderate Plan Plan: Pt is refusing treatment, however he is able to identify his medical conditions, risk/ benefits of non-adherence, and he appears rationale. Of note, pt is minimizing his sx of depression. And yet he endorses SI. At this time, pt appears to have capacity to refuse treatment for his medical condition. However, I would recommend dispo to inpatient psych unit for treatment of his depression. Pt is not currently voluntary for a psych admission and would be appropriate for a section 12B, as he endorses SI with plan to refuse treatment and allow his medical condition to continue to decline. He does accept med adjustments for comfort. Will increase Prozac to 40 mg daily for depression, anxiety. Will increase Zyprexa 5 mg HS for sleep, anxiety. And will start hydroxyzine 25 mg Q6H PRN for anxiety due to reported benefit. Cannot leave AMA. Will need consult with CARE team. I have shared this with Dr. Dowling Thank you for this consultation. If you have any questions or concerns, please do not hesitate to contact psychiatry service. I spent minutes with the patient and/or on the patient floor today, greater than?50% of which was spent counseling/coordinating care. Patient educated on: diagnosis, medication risk/benefits and therapeutic strategies
[2022-10-03] MEDS: Melatonin 3 MG TABLET 6 MG PO (21:18)
[2022-10-03] MEDS: traMADoL HCL 50 MG TABLET PO (21:18)
[2022-10-03] MEDS: Docusate Sodium 100 MG CAPSULE PO (21:18)
[2022-10-03] MEDS: rOPINIRole HCL 0.25 MG TABLET PO (21:19)
[2022-10-03] MEDS: OLANZapine 5 MG TABLET PO (21:19)
[2022-10-04] VITALS (8 sets, daily range): BP systolic 140–210; BP diastolic 69–102; PULSE 60–85; RESP 9–20; TEMP 36.8–37.1; O2SAT 88–92; BMI 22.9
[2022-10-04] MEDS: Apixaban 5 MG TABLET PO ×2 (08:15→22:35)
[2022-10-04] MEDS: Metoprolol Succinate ER 50 MG TAB.ER.24H PO (08:15)
[2022-10-04] MEDS: Docusate Sodium 100 MG CAPSULE PO (08:16)
[2022-10-04] MEDS: predniSONE 20 MG TABLET 40 MG PO (08:16)
[2022-10-04] MEDS: FLUoxetine HCl 20 MG CAPSULE 40 MG PO (08:16)
[2022-10-04] MEDS: Cyanocobalamin (Vitamin B-12) 1,000 MCG TABLET 1000 MCG PO (08:16)
[2022-10-04] MEDS: Albuterol/Iprat 2.5/0.5MG 3 ML AMPUL.NEB INHALE ×2 (08:28→14:25)
[2022-10-04] MEDS: hydrOXYzine HCL 25 MG TABLET PO ×2 (08:32→12:26)
[2022-10-04] MEDS: Loperamide HCl 2 MG CAPSULE PO (08:33)
--- NOTE | 2022-10-04 12:54 | MHC.CM.PN ---
Per ROUNDS discussion, Patient shows s/s of Depression/refusing care and SI; he has severe lung disease and has been in and out of the ICU and not yet medically cleared for dc. Returning to LTC @ [facility] would be the ultimate goal and CM will continue to follow.
--- NOTE | 2022-10-04 14:05 | P.PNIM_ITS ---
Subjective Subjective Date of Service: 10/04/22 Interval History: Patient admitted for COPD exacerbation, UTI, in addition has frontotemporal dementia Review of Systems patient is t agitated and refusing some of the treatment intermittent. ? Denies any chest pain but has short of breath. Physical Exam Vital Signs: Vital Signs: Last Vital Signs Temp 98.5 F 10/04/22 11:23 Pulse 77 10/04/22 11:23 Resp 20 10/04/22 11:23 BP 158/96 H 10/04/22 11:23 Pulse Ox 92 10/04/22 11:23 O2 Del Method 10/04/22 11:23 O2 Flow Rate 1.5 10/04/22 11:23 FiO2 21 10/02/22 09:00 Oxygen Flow Rate 6 10/01/22 00:07 BMI result Body Mass Index 22.9 ?Appearance: Alert.? awake ,but agiatated cvs: rrr, [id number] , no murmur res:air enrty slightly improving,still b/l wheezin abd: no rebound or guarding ,nt, bs present. ext pulses present , no cyanosis . neuro: axo3 , nonfocal. Objective Data Active Medications Albuterol/Ipratropium (Albuterol/Iprat 2.5/0.5mg 3 Ml Ampul.Neb) 3 ml INHALE RQ6H WHILE AWAKE [facility] Last Admin: 10/04/22 08:28 Dose: 3 ml Documented By: AMY Apixaban (Apixaban 5 Mg Tablet) 5 mg PO BID [facility] Last Admin: 10/04/22 08:15 Dose: 5 mg Documented By: CAMILLE Azithromycin (Azithromycin 500 Mg Tablet) 500 mg PO Q24H [facility] Cefuroxime Axetil (Cefuroxime Axetil 500 Mg Tablet) 500 mg PO Q12H [facility] Cyanocobalamin (Cyanocobalamin (Vitamin B-12) 1,000 Mcg Tablet) 1,000 mcg PO DAILY [facility] Last Admin: 10/04/22 08:16 Dose: 1,000 mcg Documented By: CAMILLE Docusate Sodium (Docusate Sodium 100 Mg Capsule) 100 mg PO BID [facility] Last Admin: 10/04/22 08:16 Dose: 100 mg Documented By: CAMILLE Fluoxetine HCl (Fluoxetine Hcl 20 Mg Capsule) 40 mg PO DAILY [facility] Last Admin: 10/04/22 08:16 Dose: 40 mg Documented By: CAMILLE Hydroxyzine HCl (Hydroxyzine Hcl 25 Mg Tablet) 25 mg PO Q6H PRN PRN Reason: anxiety Last Admin: 10/04/22 08:32 Dose: 25 mg Documented By: CAMILLE Loperamide HCl (Loperamide Hcl 2 Mg Capsule) 2 mg PO TID PRN PRN Reason: Diarrhea Last Admin: 10/04/22 08:33 Dose: 2 mg Documented By: CAMILLE Melatonin (Melatonin 3 Mg Tablet) 6 mg PO BEDTIME [facility] Last Admin: 10/03/22 21:18 Dose: 6 mg Documented By: ROCKY Metoprolol Succinate (Metoprolol Succinate Er 50 Mg Tab.Er.24h) 50 mg PO DAILY [facility]; Protocol Last Admin: 10/04/22 08:15 Dose: 50 mg Documented By: CAMILLE Olanzapine (Olanzapine 5 Mg Tablet) 5 mg PO BEDTIME [facility] Last Admin: 10/03/22 21:19 Dose: 5 mg Documented By: ROCKY Potassium Phos/Sodium Phos (Sodium,Potassium Phosphates Powd.Pack) 1 packet PO QID [facility] Last Admin: 10/04/22 12:26 Dose: Not Given Documented By: CAMILLE Non-Admin Reason: Patient Refused Prednisone (Prednisone 20 Mg Tablet) 40 mg PO DAILY [facility] Last Admin: 10/04/22 08:16 Dose: 40 mg Documented By: CAMILLE Ropinirole HCl (Ropinirole Hcl 0.25 Mg Tablet) 0.25 mg PO BEDTIME [facility] Last Admin: 10/03/22 21:19 Dose: 0.25 mg Documented By: ROCKY Labs CBC & Chem 7: 10/03/22 06:35 10/03/22 06:35 Assessment and Plan (1) Muscular dystrophy: Status: Acute (2) UTI (urinary tract infection): Status: Acute (3) Oxygen dependent: Status: Acute (4) Dementia: Status: Acute (5) COPD (chronic obstructive pulmonary disease): Status: Acute (6) Acute respiratory failure with hypoxia and hypercarbia: Status: Acute Plan acute hypoxemic/ hypercarbic respiratory failure secondary to COPD exacerbation: continue nebs, oxygen, steroids, IV antibiotics monitor closely. Bradycardia episode yesterday : no new episode . TSH normal, currently in sinus rhythm adjusted metoprolol Continue to monitor possible history ofAtrial fibrillation: continue Eliquis, metoprolol. uti: follow urine cultures -mix will switch to po antibiotics Bipolar disorder?: satrted his home meds, added hydraxizine x1 dose for agitation seems to be calm after that. Dementia/frontotemproal dementia: continue supportive care ,home meds added. Patient is agitated, intermittent refusing treatment: Psych is following patient is suicidal added p.r.n. Atarax, sitter at bedside, patient cannot sign against medical advise since he is severely depressed and suicidal. need bhn eval once medically clear Psych follow-up pending Hypertension: adjusted metoprolol to 25mg home dose. Muscular dystrophy: supportive care Oxygen dependent inaptient need:acute hypoxemic/ hypercarbic respiratory failure secondary to COPD exacerbation: need IV steroids, antibiotics, oxygen and UTI was antibiotics, Urine culture pending. Also be Behaviorally agitated with frontotemporal dementia need psych followup. Quality Stroke Does the patient have a stroke diagnosis?: No VTE Prior VTE?: No VTE Risk Level:: Medical - moderate - high VTE Device Contraindication: N/A - Device Ordered VTE Drug Contraindication: N/A - Med Ordered
--- NOTE | 2022-10-04 17:04 | PM.PSYCN ---
History of Present Illness Date of Service: 10/04/22 Chief Complaint: Acute resp failure Reason for Consult: dispo Requesting physician: Willy Dowling Discussed with referring provider: Yes HPI Narrative: Pt asleep, unable to interview. See previous consult note for detailed history. Spoke with provider, pt continues to refuse treatment, appears severely depressed despite denying depressed mood, endorses suicidal ideation with plan and intent to refuse treatment and let his medical conditions worsen. [facility] Medical History (Updated 10/06/22 @ 16:16 by Willy Dwoling MD) Acute on chronic respiratory failure with hypoxia and hypercapnia Atrial fibrillation Bipolar disorder COPD (chronic obstructive pulmonary disease) Dementia Hypertension Muscular dystrophy Oxygen dependent Respiratory failure with hypercapnia Diagnostics Vital Signs (24Hr): Vital Signs - 24 hr 10/03/22 19:41 10/03/22 23:53 10/04/22 03:06 Temperature 98.6 F 98.5 F 98.2 F Pulse Rate 69 62 76 Respiratory Rate 18 18 18 Blood Pressure 171/83 H 161/71 H 149/74 H Pulse Oximetry 93 92 91 L Oxygen Delivery Method Nasal Cannula Nasal Cannula Nasal Cannula Oxygen Flow Rate 0.5 1.2 0.5 Fraction of Inspired Oxygen 10/04/22 07:45 10/04/22 08:28 10/04/22 08:28 Temperature 98.7 F Pulse Rate 65 60 Respiratory Rate 18 9 L 18 Blood Pressure 210/102 H Pulse Oximetry 89 L 88 L Oxygen Delivery Method Nasal Cannula Oxygen Flow Rate 0.5 Fraction of Inspired Oxygen 10/04/22 08:32 10/04/22 08:44 10/04/22 11:23 Temperature 98.5 F Pulse Rate 60 77 Respiratory Rate 18 20 Blood Pressure 180/96 H 158/96 H Pulse Oximetry 92 Oxygen Delivery Method Nasal Cannula Oxygen Flow Rate 1.5 Fraction of Inspired Oxygen 10/04/22 16:00 Temperature 98.7 F Pulse Rate 70 Respiratory Rate 19 Blood Pressure 145/69 H Pulse Oximetry Oxygen Delivery Method Nasal Cannula Oxygen Flow Rate 0.5 Fraction of Inspired Oxygen 97 BMI result Body Mass Index 22.9 Labs Results: 10/03/22 06:35 10/07/22 06:16 Labs: Laboratory Results - last 48 hr 10/02/22 10/03/22 10/03/22 20:02 06:35 06:35 WBC 10.1 RBC 3.92 L Hgb 12.4 L Hct 39.5 L MCV 100.8 H MCH 31.6 MCHC 31.4 RDW 12.2 Plt Count 263 MPV 9.3 L Immature Gran % (Auto) 0.5 H Neut % (Auto) 63.7 Lymph % (Auto) 27.3 [place] % (Auto) 7.8 Eos % (Auto) 0.6 Baso % (Auto) 0.1 Lymph # (Auto) 2.8 [place] # (Auto) 0.8 Eos # (Auto) 0.1 Baso # (Auto) 0.0 Abs Immat Gran (auto) 0.05 H Absolute Neuts (auto) 6.4 Absolute Nucleated RBC 0.000 Nucleated RBC % (auto) 0.0 VBG pH VBG pCO2 VBG pO2 VBG HCO3 VBG O2 Saturation VBG Base Excess Sodium 150 H 146 H Potassium 3.8 Chloride 98 Carbon Dioxide 39 H Anion Gap 13 BUN 25 H Creatinine 0.54 Estim Creat Clear Calc 149.0 Estimated GFR > 60 Random Glucose 113 Calcium 9.0 D Phosphorus 2.3 L Magnesium 2.2 Albumin 3.1 L TSH 0.39 10/03/22 10/03/22 06:35 11:24 WBC RBC Hgb Hct MCV MCH MCHC RDW Plt Count MPV Immature Gran % (Auto) Neut % (Auto) Lymph % (Auto) [place] % (Auto) Eos % (Auto) Baso % (Auto) Lymph # (Auto) [place] # (Auto) Eos # (Auto) Baso # (Auto) Abs Immat Gran (auto) Absolute Neuts (auto) Absolute Nucleated RBC Nucleated RBC % (auto) VBG pH 7.47 H VBG pCO2 54 VBG pO2 85 VBG HCO3 40 H VBG O2 Saturation 98.0 VBG Base Excess 14.6 Sodium Cancelled Potassium Cancelled Chloride Cancelled Carbon Dioxide Cancelled Anion Gap Cancelled BUN Cancelled Creatinine Cancelled Estim Creat Clear Calc Cancelled Estimated GFR Cancelled Random Glucose Cancelled Calcium Cancelled Phosphorus Magnesium Albumin TSH Cancelled Imaging Radiology Impressions: ITS Impressions Chest X-Ray 10/01/22 00:36 IMPRESSION: Equivocal bibasilar airspace opacities, greater on the right side with possible small amount of right-sided pleural fluid. In view of limitations of the study, recommend a repeat imaging with also correlation with a lateral chest radiograph. Abdomen/Pelvis CT 10/01/22 03:46 IMPRESSION: 1. A 4 mm calculus at the right ureterovesical junction produces mild right hydroureteronephrosis. An additional 1 mm calculus is present in the right distal ureter. 2. Multiple additional punctate calculi in the right renal collecting system. 3. Thick-walled bladder with surrounding fat stranding, potentially due to chronic bladder outlet obstruction or cystitis. Borderline prostatomegaly 4. Partial collapse of the left lower lobe, partial collapse of the right lower lobe, and additional atelectasis in the upper lobes. 5. Osteoarthritis in the hips. No acute osseous findings. Fleischner guidelines were followed. Chest CT 10/01/22 03:46 IMPRESSION: 1. Multifocal atelectasis in the lungs with collapse of the right middle and left lower lobes as well as partial collapse of the right lower lobe and subsegmental atelectasis in the upper lobes.. Superimposed consolidation is possible, though not discretely seen. 2. Elevation of the right hemidiaphragm. Fleischner guidelines were followed. Head CT 10/01/22 03:46 IMPRESSION: No acute intracranial pathology. Bilateral mastoid effusions. This may be asymptomatic, though consider correlation for clinical findings of mastoiditis. Medications Medications Current Medications Albuterol/Ipratropium (Albuterol/Iprat 2.5/0.5mg 3 Ml Ampul.Neb) 3 ml INHALE RQ6H WHILE AWAKE [facility] Last Admin: 10/04/22 14:25 Dose: 3 ml Apixaban (Apixaban 5 Mg Tablet) 5 mg PO BID [facility] Last Admin: 10/04/22 08:15 Dose: 5 mg Azithromycin (Azithromycin 500 Mg Tablet) 500 mg PO Q24H [facility] Cefuroxime Axetil (Cefuroxime Axetil 500 Mg Tablet) 500 mg PO Q12H [facility] Cyanocobalamin (Cyanocobalamin (Vitamin B-12) 1,000 Mcg Tablet) 1,000 mcg PO DAILY [facility] Last Admin: 10/04/22 08:16 Dose: 1,000 mcg Docusate Sodium (Docusate Sodium 100 Mg Capsule) 100 mg PO BID [facility] Last Admin: 10/04/22 08:16 Dose: 100 mg Fluoxetine HCl (Fluoxetine Hcl 20 Mg Capsule) 40 mg PO DAILY [facility] Last Admin: 10/04/22 08:16 Dose: 40 mg Hydroxyzine HCl (Hydroxyzine Hcl 25 Mg Tablet) 25 mg PO Q6H PRN PRN Reason: anxiety Last Admin: 10/04/22 08:32 Dose: 25 mg Loperamide HCl (Loperamide Hcl 2 Mg Capsule) 2 mg PO TID PRN PRN Reason: Diarrhea Last Admin: 10/04/22 08:33 Dose: 2 mg Melatonin (Melatonin 3 Mg Tablet) 6 mg PO BEDTIME [facility] Last Admin: 10/03/22 21:18 Dose: 6 mg Metoprolol Succinate (Metoprolol Succinate Er 50 Mg Tab.Er.24h) 50 mg PO DAILY [facility]; Protocol Last Admin: 10/04/22 08:15 Dose: 50 mg Olanzapine (Olanzapine 5 Mg Tablet) 5 mg PO BEDTIME [facility] Last Admin: 10/03/22 21:19 Dose: 5 mg Potassium Phos/Sodium Phos (Sodium,Potassium Phosphates Powd.Pack) 1 packet PO QID [facility] Last Admin: 10/04/22 12:26 Dose: Not Given Prednisone (Prednisone 20 Mg Tablet) 40 mg PO DAILY [facility] Last Admin: 10/04/22 08:16 Dose: 40 mg Ropinirole HCl (Ropinirole Hcl 0.25 Mg Tablet) 0.25 mg PO BEDTIME [facility] Last Admin: 10/03/22 21:19 Dose: 0.25 mg Allergies Allergies Allergy/AdvReac Type Severity Reaction Status Date / Time No Known Allergies Allergy Verified 10/01/22 00:06 Assessment & Plan Assessment & Plan (1) MDD (major depressive disorder), recurrent episode, moderate: Status: Acute Code(s): F33.1 - Major depressive disorder, recurrent, moderate (2) Dementia: Status: Acute Code(s): F03.90 - Unspecified dementia, unspecified severity, without behavioral disturbance, psychotic disturbance, mood disturbance, and anxiety Plan Plan: Pt is refusing treatment, continues to endorse SI. I recommend dispo to inpatient psych unit for treatment of his depression. Pt is not currently voluntary for a psych admission and would be appropriate for a section 12B, as he endorses SI with plan to refuse treatment and allow his medical condition to continue to decline. Monitor recent med changes for benefit i.e. Prozac 40 mg daily for depression, anxiety, Zyprexa 5 mg HS for sleep, anxiety, and hydroxyzine 25 mg Q6H PRN for anxiety. Cannot leave AMA. Will need consult with CARE team. I have shared this with Dr. Dowling Thank you for this consultation. If you have any questions or concerns, please do not hesitate to contact psychiatry service. I spent minutes with the patient and/or on the patient floor today, greater than?50% of which was spent counseling/coordinating care. Patient educated on: other
[2022-10-04] MEDS: OLANZapine 5 MG TABLET PO (22:35)
[2022-10-04] MEDS: Melatonin 3 MG TABLET 6 MG PO (22:35)
[2022-10-04] MEDS: rOPINIRole HCL 0.25 MG TABLET PO (22:35)
[2022-10-05] VITALS (8 sets, daily range): BP systolic 128–156; BP diastolic 62–86; PULSE 62–84; RESP 16–20; TEMP 36.6–37.3; O2SAT 18–93; BMI 23.5
--- NOTE | 2022-10-05 | ECG_ITS ---
Test Reason : CHEST HEAVYNESS Blood Pressure : / mmHG Vent. Rate : 073 BPM Atrial Rate : 073 BPM P-R Int : 156 ms QRS Dur : 096 ms QT Int : 412 ms P-R-T Axes : 051 032 073 degrees QTc Int : 453 ms Normal sinus rhythm Right atrial enlargement Nonspecific ST abnormality Intra-ventricular conduction delay Abnormal ECG When compared with ECG of 03-OCT-2022 06:20, Vent. rate has increased BY 24 BPM Referred By: Willy Dowling Electronically Signed By:SHADI WILSON MD
[2022-10-05] MEDS: hydrOXYzine HCL 25 MG TABLET PO (03:23)
--- NOTE | 2022-10-05 08:17 | P.CDIC_ITS ---
CDI Concurrent Query Documentation Clarification: PHYSICIAN'S DOCUMENTATION REQUEST Date of Query: 10/05/22 0817 Patient Name: Randall Contreras Admit Date: 10/01/22 Dear Doctor, A review of the medical record indicates additional documentation may be needed. Please review below and update the documentation accordingly. Clinical Indicators: Risk Factors/Clinical Indicators/Treatments per MD note 10/01/22: decreased responsiveness.ABG with pH 7.15 and pCO2 160.?? patient to ICU for BiPAP need transferred back again this morning- seems somewhat better, still short of breath, but more awake Based on the above, could you clarify in the Progress Notes which, if any of the following, is the most likely etiology of the confusion/altered mental status? * Encephalopathy - indicate type such as metabolic, toxic, septic, alcoholic, hypertensive, etc. * Acute delirium - indicate known or suspected etiology, such as postoperative, due to narcotics or other drugs, etc. * Acute or subacute confusional state due to (specify known or suspected etiology) * Other etiology (please specify) * Unable to determine Use of terms such as suspected, likely, concern for, or probable (associated with a specific diagnosis that is being evaluated, monitored, or treated as if it exists) are acceptable and can be coded in the inpatient setting, when documented at the time of discharge. Thank you, Charlene Nogueira RN Extension: [phone] Please use your independent medical judgment in providing your response. THIS QUERY IS PART OF THE PERMANENT MEDICAL RECORD Provider Response: Other Other Diagnosis: Toxic metabolic encephalopathy Secondary to Hypoxemic/hypercarbic respiratory failure.
[2022-10-05] MEDS: predniSONE 20 MG TABLET 40 MG PO (09:00)
[2022-10-05] MEDS: Metoprolol Succinate ER 50 MG TAB.ER.24H PO (09:00)
[2022-10-05] MEDS: Sodium,Potassium Phosphates POWD.PACK 1 PACKET PO ×4 (09:00→20:45)
[2022-10-05] MEDS: Apixaban 5 MG TABLET PO ×2 (09:01→20:47)
[2022-10-05] MEDS: FLUoxetine HCl 20 MG CAPSULE 40 MG PO (09:01)
[2022-10-05] MEDS: Cyanocobalamin (Vitamin B-12) 1,000 MCG TABLET 1000 MCG PO (09:01)
[2022-10-05 09:26] LABS: VBG Base Excess 21.9 mmol/L; VBG HCO3 50 mmol/L (22-26); VBG pCO2 70 mmHg; VBG pH 7.46 (7.32-7.43); VBG pO2 80 mmHg
--- NOTE | 2022-10-05 09:27 | PC.RT ---
pt refusing tx's, bipap, and abg at this time
[2022-10-05 09:38] LABS: Venous Blood Gas Refer to POC result
[2022-10-05 09:51] LABS: Troponin-I High Sensitivity 8.6 ng/L (<3.5-35.0)
[2022-10-05] MEDS: acetaZOLAMIDE 250 MG TABLET PO (12:09)
--- NOTE | 2022-10-05 12:40 | PM.CNPUL ---
History of Present Illness History of Present Illness Consult date: 10/05/22 Chief complaint: Acute resp failure Narrative: This is an inpatient pulmonary consultation. The patient is a 67-year-old gentleman with underlying frontotemporal dementia, bipolar, limb girdle muscular dystrophy, paroxysmal AFib on Eliquis, COPD on supplemental oxygen 2-3 L admitted on 10/01/2022 from [facility] facility with complaints of dyspnea.? On ER evaluation patient hyperoxic and hypercapnic requiring BiPAP support.? CT chest with demonstration of chronic atelectasis.?Patient admitted to intensive care unit, titrated off BiPAP to his basal supplemental oxygen rate of 2 L and later transfer to the floor. Tonight, patient obtunded, not responding to painful stimuli, rapid response team called. ABGs obtained 7.15/160/113/56. [place] [facility] [place] Now he is better. Does have a weak cough due to his moscular dystropy and restrictive lung disease. His las ABG demonstrated Chronic hypercarbic respiratory failure and metabolic alkalosis. HE is still using the BIPAP 14/5. I did decrease to 12/5 with the hopes that he can tolerate it better. He needs to continue to use the positive pressure ventilation every night. Review of Systems Constitutional: Constitutional: Reports fatigue, Denies fever(s) and Reports weakness Eyes: Eyes: Denies blurry vision ENT: Denies change in voice Cardiovascular: Cardiovascular: Denies chest pain Respiratory: Respiratory: Reports chest congestion, Reports cough and Denies wheezing Gastrointestinal: Gastrointestinal: Reports no additional gastrointestinal complaints Musculoskeletal: Musculoskeletal: Reports limited range of motion and Reports muscle weakness Neurologic: Reports weakness Psychiatric: Psychiatric: Reports depression Endocrine: Endocrine: Reports fatigue Hematologic/Lymphatic: Hematologic/Lymphatic: Denies easy bleeding and Denies easy bruising Allergic/Immunologic: Allergic/Immunologic: Denies wheezing PMFSH Past Medical History Medical History (Updated 10/05/22 @ 12:46 by Gt Herrera MD) Acute on chronic respiratory failure with hypoxia and hypercapnia Atrial fibrillation Bipolar disorder COPD (chronic obstructive pulmonary disease) Dementia Hypertension Muscular dystrophy Oxygen dependent Respiratory failure with hypercapnia Social History Social History Household Members: Unknown / Unable to assess Housing: [facility] Unable to assess alcohol history related to: Unable to respond Patient Tobacco Use Status: Tobacco use Unknown Patient Interested in Nicotine Replacement: No Substance Use Type: Marijuana Currently Displaying Signs/Symptoms of Drug Intoxication Withdrawal: No [facility] Healthcare Practices: pt states none Advance Directives: Yes Advance Directives Information Provided: No Advance Directives on File: No Advance Directives Date on File: 10/01/22 Do you have thoughts of harming others: None Do you have a plan to hurt others: No Plan Recently lost weight without trying: Unsure Nutrition Risks: On aspiration precautions Poor oral hygiene: No service: No Current occupational status: disabled Meds Allergies Allergy/AdvReac Type Severity Reaction Status Date / Time No Known Allergies Allergy Verified 10/01/22 00:06 Active Medications: Current Medications Albuterol/Ipratropium (Albuterol/Iprat 2.5/0.5mg 3 Ml Ampul.Neb) 3 ml INHALE RQ6H WHILE AWAKE [facility] Last Admin: 10/05/22 08:08 Dose: Not Given Apixaban (Apixaban 5 Mg Tablet) 5 mg PO BID [facility] Last Admin: 10/05/22 09:01 Dose: 5 mg Azithromycin (Azithromycin 500 Mg Tablet) 500 mg PO Q24H [facility] Last Admin: 10/04/22 18:28 Dose: Not Given Cefuroxime Axetil (Cefuroxime Axetil 500 Mg Tablet) 500 mg PO Q12H [facility] Last Admin: 10/05/22 06:29 Dose: Not Given Cyanocobalamin (Cyanocobalamin (Vitamin B-12) 1,000 Mcg Tablet) 1,000 mcg PO DAILY [facility] Last Admin: 10/05/22 09:01 Dose: 1,000 mcg Docusate Sodium (Docusate Sodium 100 Mg Capsule) 100 mg PO BID [facility] Last Admin: 10/05/22 09:02 Dose: Not Given Fluoxetine HCl (Fluoxetine Hcl 20 Mg Capsule) 40 mg PO DAILY [facility] Last Admin: 10/05/22 09:01 Dose: 40 mg Hydroxyzine HCl (Hydroxyzine Hcl 25 Mg Tablet) 25 mg PO Q6H PRN PRN Reason: anxiety Last Admin: 10/05/22 03:23 Dose: 25 mg Loperamide HCl (Loperamide Hcl 2 Mg Capsule) 2 mg PO TID PRN PRN Reason: Diarrhea Last Admin: 10/04/22 08:33 Dose: 2 mg Melatonin (Melatonin 3 Mg Tablet) 6 mg PO BEDTIME [facility] Last Admin: 10/04/22 22:35 Dose: 6 mg Metoprolol Succinate (Metoprolol Succinate Er 50 Mg Tab.Er.24h) 50 mg PO DAILY [facility]; Protocol Last Admin: 10/05/22 09:00 Dose: 50 mg Olanzapine (Olanzapine 5 Mg Tablet) 5 mg PO BEDTIME [facility] Last Admin: 10/04/22 22:35 Dose: 5 mg Potassium Phos/Sodium Phos (Sodium,Potassium Phosphates Powd.Pack) 1 packet PO QID [facility] Last Admin: 10/05/22 12:10 Dose: 1 packet Prednisone (Prednisone 20 Mg Tablet) 40 mg PO DAILY [facility] Last Admin: 10/05/22 09:00 Dose: 40 mg Ropinirole HCl (Ropinirole Hcl 0.25 Mg Tablet) 0.25 mg PO BEDTIME [facility] Last Admin: 10/04/22 22:35 Dose: 0.25 mg Home Medications Medication Instructions Recorded Confirmed Last Taken Type acetaminophen 325 mg tablet 650 mg PO Q6H PRN Pain 10/01/22 10/01/22 Unknown History albuterol sulfate 90 mcg/actuation 90 mcg inhalation Q4H PRN Wheezing 10/01/22 10/01/22 Unknown History aerosol inhaler apixaban 5 mg tablet (Eliquis) 1 tab PO BID 10/01/22 10/01/22 Unknown History bisacodyl 10 mg rectal suppository 10 mg [place] DAILY PRN Constipation 10/01/22 10/01/22 Unknown History cholecalciferol (vitamin D3) 1,250 1,250 mcg PO QMONTH 10/01/22 10/01/22 Unknown History mcg (50,000 unit) capsule cyanocobalamin (vitamin B-12) 1,000 mcg PO DAILY 10/01/22 10/01/22 Unknown History 1,000 mcg tablet docusate sodium 100 mg capsule 100 mg PO BID 10/01/22 10/01/22 Unknown History fluoxetine 10 mg tablet 1 tab PO DAILY 10/01/22 10/01/22 Unknown History fluoxetine 20 mg tablet 1 tab PO DAILY 10/01/22 10/01/22 Unknown History guaifenesin 100 mg/5 mL oral liquid 200 mg PO Q4H PRN Cough 10/01/22 10/01/22 Unknown History ipratropium 0.5 mg-albuterol 3 mg 3 ml inhalation Q6H PRN Wheezing 10/01/22 10/01/22 Unknown History (2.5 mg base)/3 mL nebulization soln ipratropium 20 mcg-albuterol 100 1 puff inhalation QID 10/01/22 10/01/22 Unknown History mcg/actuation mist for inhalation (Combivent Respimat) loperamide 2 mg capsule 2 mg PO TID PRN Diarrhea 10/01/22 10/01/22 Unknown History losartan 25 mg tablet 1 tab PO DAILY 10/01/22 10/01/22 Unknown History magnesium hydroxide 400 mg/5 mL 2,400 mg PO DAILY PRN Constipation 10/01/22 10/01/22 Unknown History oral suspension (Milk of Magnesia) melatonin 3 mg tablet 6 mg PO BEDTIME 10/01/22 10/01/22 Unknown History metoprolol succinate 25 mg 1 tab PO DAILY 10/01/22 10/01/22 Unknown History tablet,extended release 24 hr olanzapine 2.5 mg tablet 1 tab PO BEDTIME 10/01/22 10/01/22 Unknown History ropinirole 0.25 mg tablet 1 tab PO BEDTIME 10/01/22 10/01/22 Unknown History sodium phosphates 19 gram-7 118 ml [place] BEDTIME PRN Constipation 10/01/22 10/01/22 Unknown History gram/118 mL enema (Fleet Enema) trazodone 50 mg tablet 0.5 tab PO BEDTIME PRN Sleep 10/01/22 10/01/22 Unknown History Physical Exam Vital Signs: Vital Signs: Last Vital Signs Temp 98.9 F 10/05/22 11:40 Pulse 62 10/05/22 11:40 Resp 19 10/05/22 11:40 BP 149/86 H 10/05/22 11:40 Pulse Ox 91 L 10/05/22 11:40 O2 Del Method 10/05/22 11:40 O2 Flow Rate 2 10/05/22 11:40 FiO2 21 10/05/22 11:26 Oxygen Flow Rate 6 10/01/22 00:07 BMI result Body Mass Index 23.5 Const: General: no acute distress, alert and awake Eyes: Sclerae: sclerae normal EOM: EOMs intact bilaterally Neck: Neck: Yes no lymphadenopathy, Yes trachea midline and Yes supple Chest: Chest palpation & inspection: normal inspection of the chest Resp: Effort & Inspection: decreased respiratory effort and no respiratory distress Auscultation: diminished lung sounds Cardio: Rate: regular rate Rhythm: regular rhythm Heart sounds: no gallops, no murmurs and no rubs GI: Palpation (GI): Soft to palpation and Other GI palpation findings present ( Nontender) Auscultation: normal bowel sounds Extrem: General: Yes no pedal edema, No clubbing and No cyanosis Results Laboratory Findings CBC and BMP: 10/03/22 06:35 10/03/22 06:35 ABG, PT/INR, D-dimer: PT/INR, D-dimer PT 13.7 SEC (10.0-13.1) H 10/01/22 00:28 INR 1.2 (0.9-1.1) H 10/01/22 00:28 Abnormal lab findings: Abnormal Labs 10/01/22 10/01/22 10/01/22 00:27 00:27 00:28 RBC 4.42 L Hgb 13.9 L Hct MCV 105.9 H MCHC 29.7 L MPV 9.0 L Immature Gran % (Auto) Neut % (Auto) 88.8 H Lymph % (Auto) 4.4 L Lymph # (Auto) 0.5 L Abs Immat Gran (auto) 0.04 H Absolute Neuts (auto) 9.1 H Absolute Nucleated RBC PT 13.7 H INR 1.2 H ABG pH at Pt Temp ABG pCO2 at Pt Temp ABG pO2 at Pt Temp ABG HCO3 VBG pH VBG HCO3 Sodium 148 H Chloride 90 L Carbon Dioxide 44 H* BUN 17 H POC Glucose Random Glucose 139 H Calcium Phosphorus Albumin Urine Color Urine Protein Urine Blood Urine Nitrite Ur Leukocyte Esterase Urine RBC Urine WBC 10/01/22 10/01/22 10/01/22 00:46 03:33 03:38 RBC Hgb Hct MCV MCHC MPV Immature Gran % (Auto) Neut % (Auto) Lymph % (Auto) Lymph # (Auto) Abs Immat Gran (auto) Absolute Neuts (auto) Absolute Nucleated RBC PT INR ABG pH at Pt Temp ABG pCO2 at Pt Temp ABG pO2 at Pt Temp ABG HCO3 VBG pH 7.30 L VBG HCO3 57 H Sodium Chloride Carbon Dioxide BUN POC Glucose 186 H Random Glucose Calcium Phosphorus Albumin Urine Color Brown A Urine Protein 100 (2+) H Urine Blood Moderate (2+) H Urine Nitrite Positive H Ur Leukocyte Esterase Moderate (2+) H Urine RBC >20 H Urine WBC >50 H 10/01/22 10/01/22 10/01/22 05:02 07:44 20:58 RBC Hgb Hct MCV MCHC MPV Immature Gran % (Auto) Neut % (Auto) Lymph % (Auto) Lymph # (Auto) Abs Immat Gran (auto) Absolute Neuts (auto) Absolute Nucleated RBC PT INR ABG pH at Pt Temp 7.23 L 7.15 L* ABG pCO2 at Pt Temp 125 H* 160 H* ABG pO2 at Pt Temp 72 L 113 H ABG HCO3 53 H 56 H VBG pH VBG HCO3 56 H Sodium Chloride Carbon Dioxide BUN POC Glucose Random Glucose Calcium Phosphorus Albumin Urine Color Urine Protein Urine Blood Urine Nitrite Ur Leukocyte Esterase Urine RBC Urine WBC 10/01/22 10/02/22 10/02/22 21:18 00:51 05:23 RBC 4.26 L Hgb 13.6 L Hct MCV 105.2 H MCHC 30.4 L MPV Immature Gran % (Auto) 0.7 H Neut % (Auto) 77.0 H Lymph % (Auto) 11.5 L Lymph # (Auto) Abs Immat Gran (auto) 0.07 H Absolute Neuts (auto) Absolute Nucleated RBC 0.020 H PT INR ABG pH at Pt Temp ABG pCO2 at Pt Temp ABG pO2 at Pt Temp ABG HCO3 VBG pH 7.59 H VBG HCO3 46 H Sodium Chloride Carbon Dioxide BUN POC Glucose 163 H Random Glucose Calcium Phosphorus Albumin Urine Color Urine Protein Urine Blood Urine Nitrite Ur Leukocyte Esterase Urine RBC Urine WBC 10/02/22 10/02/22 10/02/22 05:24 05:27 20:02 RBC Hgb Hct MCV MCHC MPV Immature Gran % (Auto) Neut % (Auto) Lymph % (Auto) Lymph # (Auto) Abs Immat Gran (auto) Absolute Neuts (auto) Absolute Nucleated RBC PT INR ABG pH at Pt Temp ABG pCO2 at Pt Temp ABG pO2 at Pt Temp ABG HCO3 VBG pH 7.62 H* VBG HCO3 46 H Sodium 151 H 150 H Chloride 95 L Carbon Dioxide 41 H* BUN 27 H POC Glucose Random Glucose 123 H Calcium 10.5 H D Phosphorus 0.8 L* Albumin Urine Color Urine Protein Urine Blood Urine Nitrite Ur Leukocyte Esterase Urine RBC Urine WBC 10/03/22 10/03/22 10/03/22 06:35 06:35 11:24 RBC 3.92 L Hgb 12.4 L Hct 39.5 L MCV 100.8 H MCHC MPV 9.3 L Immature Gran % (Auto) 0.5 H Neut % (Auto) Lymph % (Auto) Lymph # (Auto) Abs Immat Gran (auto) 0.05 H Absolute Neuts (auto) Absolute Nucleated RBC PT INR ABG pH at Pt Temp ABG pCO2 at Pt Temp ABG pO2 at Pt Temp ABG HCO3 VBG pH 7.47 H VBG HCO3 40 H Sodium 146 H Chloride Carbon Dioxide 39 H BUN 25 H POC Glucose Random Glucose Calcium Phosphorus 2.3 L Albumin 3.1 L Urine Color Urine Protein Urine Blood Urine Nitrite Ur Leukocyte Esterase Urine RBC Urine WBC 10/05/22 09:19 RBC Hgb Hct MCV MCHC MPV Immature Gran % (Auto) Neut % (Auto) Lymph % (Auto) Lymph # (Auto) Abs Immat Gran (auto) Absolute Neuts (auto) Absolute Nucleated RBC PT INR ABG pH at Pt Temp ABG pCO2 at Pt Temp ABG pO2 at Pt Temp ABG HCO3 VBG pH 7.46 H VBG HCO3 50 H Sodium Chloride Carbon Dioxide BUN POC Glucose Random Glucose Calcium Phosphorus Albumin Urine Color Urine Protein Urine Blood Urine Nitrite Ur Leukocyte Esterase Urine RBC Urine WBC Microbiology: Microbiology 10/01/22 00:46 Blood - Venous Blood Culture - Preliminary No growth after 48 hours. 10/01/22 00:28 Blood - Venous Blood Culture - Preliminary No growth after 48 hours. 10/01/22 Unknown Urine clean catch - Urine rodríguez top Urine Culture - Final Assessment and Plan (1) Muscular dystrophy: Status: Acute Limb girdle MD is progressive now affecting his respiratory capacity (2) Acute on chronic respiratory failure with hypoxia and hypercapnia: Status: Acute (3) Pneumonia: Status: Acute Plan Adjusted BIPAP 12/5 rate 10 Continue BIPAP at night while sleeping X1 dose of Diamox, recheck HCO3 levels Continue broad spectrum antibiotics CPT If the patient fails positive pressure ventilation therapy, consider curass biphasic ventilator Procedures Date of Service Date of Service: 10/05/22
[2022-10-05] MEDS: Magnesium Sulfate/H2O 2 GM/50 ML PIGGYBACK IV (14:46)
--- NOTE | 2022-10-05 14:50 | P.PNIM_ITS ---
Subjective Subjective Date of Service: 10/05/22 Interval History: COPD exacerbation Review of Systems still short of breath denies any cough, slightly anxious intermittently declines treatments but when reinforced again he agrees is still depressed and suicidal. Physical Exam Vital Signs: Vital Signs: Last Vital Signs Temp 98.9 F 10/05/22 11:40 Pulse 62 10/05/22 11:40 Resp 19 10/05/22 11:40 BP 149/86 H 10/05/22 11:40 Pulse Ox 91 L 10/05/22 11:40 O2 Del Method 10/05/22 11:40 O2 Flow Rate 2 10/05/22 11:40 FiO2 21 10/05/22 11:26 Oxygen Flow Rate 6 10/01/22 00:07 BMI result Body Mass Index 23.5 ?Appearance: Alert.? awake ,but agiatated,still sob cvs: rrr, m2x6oapts , no murmur res:air enrty similar to yesterday,still b/l wheezin abd: no rebound or guarding ,nt, bs present. ext pulses present , no cyanosis . neuro: axo3 , nonfocal. Objective Data Active Medications Albuterol/Ipratropium (Albuterol/Iprat 2.5/0.5mg 3 Ml Ampul.Neb) 3 ml INHALE RQ6H WHILE AWAKE [facility] Last Admin: 10/05/22 08:08 Dose: Not Given Documented By: IKE Non-Admin Reason: Patient Refused Apixaban (Apixaban 5 Mg Tablet) 5 mg PO BID [facility] Last Admin: 10/05/22 09:01 Dose: 5 mg Documented By: MAGALIS Azithromycin (Azithromycin 500 Mg Tablet) 500 mg PO Q24H [facility] Last Admin: 10/04/22 18:28 Dose: Not Given Documented By: CAMILLE Non-Admin Reason: Patient Refused Cefuroxime Axetil (Cefuroxime Axetil 500 Mg Tablet) 500 mg PO Q12H [facility] Last Admin: 10/05/22 06:29 Dose: Not Given Documented By: OCTAVIO Non-Admin Reason: Patient Refused Cyanocobalamin (Cyanocobalamin (Vitamin B-12) 1,000 Mcg Tablet) 1,000 mcg PO DAILY [facility] Last Admin: 10/05/22 09:01 Dose: 1,000 mcg Documented By: MAGALIS Docusate Sodium (Docusate Sodium 100 Mg Capsule) 100 mg PO BID [facility] Last Admin: 10/05/22 09:02 Dose: Not Given Documented By: MAGALIS Non-Admin Reason: See Note Fluoxetine HCl (Fluoxetine Hcl 20 Mg Capsule) 40 mg PO DAILY [facility] Last Admin: 10/05/22 09:01 Dose: 40 mg Documented By: MAGALIS Hydroxyzine HCl (Hydroxyzine Hcl 25 Mg Tablet) 25 mg PO Q6H PRN PRN Reason: anxiety Last Admin: 10/05/22 03:23 Dose: 25 mg Documented By: OCTAVIO Magnesium Sulfate (Magnesium Sulfate/H2o) 2 gm in 50 mls @ 50 mls/hr IV ONCE ONE Stop: 10/05/22 15:34 Last Admin: 10/05/22 14:46 Dose: 50 mls/hr Documented By: MAGALIS Loperamide HCl (Loperamide Hcl 2 Mg Capsule) 2 mg PO TID PRN PRN Reason: Diarrhea Last Admin: 10/04/22 08:33 Dose: 2 mg Documented By: CAMILLE Melatonin (Melatonin 3 Mg Tablet) 6 mg PO BEDTIME [facility] Last Admin: 10/04/22 22:35 Dose: 6 mg Documented By: JANETTE Metoprolol Succinate (Metoprolol Succinate Er 50 Mg Tab.Er.24h) 50 mg PO DAILY [facility]; Protocol Last Admin: 10/05/22 09:00 Dose: 50 mg Documented By: MAGALIS Olanzapine (Olanzapine 5 Mg Tablet) 5 mg PO BEDTIME [facility] Last Admin: 10/04/22 22:35 Dose: 5 mg Documented By: JANETTE Potassium Phos/Sodium Phos (Sodium,Potassium Phosphates Powd.Pack) 1 packet PO QID [facility] Last Admin: 10/05/22 12:10 Dose: 1 packet Documented By: MANJULA Prednisone (Prednisone 20 Mg Tablet) 40 mg PO DAILY [facility] Last Admin: 10/05/22 09:00 Dose: 40 mg Documented By: MAGALIS Ropinirole HCl (Ropinirole Hcl 0.25 Mg Tablet) 0.25 mg PO BEDTIME [facility] Last Admin: 10/04/22 22:35 Dose: 0.25 mg Documented By: JANETTE Labs CBC & Chem 7: 10/03/22 06:35 10/03/22 06:35 Labs: Laboratory Results - last 24 hr 10/05/22 10/05/22 09:11 09:19 VBG pH 7.46 H VBG pCO2 70 VBG pO2 80 VBG HCO3 50 H VBG O2 Saturation 98.0 VBG Base Excess 21.9 Troponin I High Sens 8.6 Assessment and Plan (1) Acute on chronic respiratory failure with hypoxia and hypercapnia: Status: Acute (2) MDD (major depressive disorder), recurrent episode, moderate: Status: Acute Plan acute hypoxemic/ hypercarbic respiratory failure secondary to COPD exacerbation:? ?abg reviewed,ph mainatained - Patient placed BiPAP for 1 hour and then he removed added nebs 1 hour treament, magnesium in addition, After that 1 hour more bipap-continue nebs, oxygen, steroids, IV antibiotics sats seems fine ,sob seems improving will repeat VBG further worsening of shortness of breath or desaturation pulm link noted - patient intermittent the refuses treatment read lot of reinforcement if he continue to do that may need psych follow-up today psych is aware. ? Bradycardia episode? yesterday : no new episode . ?TSH normal, currently in sinus rhythm adjusted metoprolol ? Continue to monitor ?possible history ofAtrial fibrillation: ?continue Eliquis, metoprolol. uti: follow urine cultures -mix will switch to po antibiotics Bipolar disorder?: satrted his home meds, added hydraxizine x1 dose for ? agitation seems to be? calm after that. Dementia/frontotemproal dementia: continue supportive care ,home meds added. ? Patient is agitated, intermittent refusing treatment:? Psych is following patient is suicidal ?? added p.r.n. Atarax, sitter at bedside, patient cannot sign against medical advise since he is severely depressed and suicidal. need bhn eval once medically clear ? Psych follow-up pending Hypertension: adjusted metoprolol to 25mg home dose. Muscular dystrophy: supportive care Oxygen dependent inaptient need:acute hypoxemic/ hypercarbic respiratory failure secondary to COPD exacerbation: need IV steroids, antibiotics, oxygen and? UTI was antibiotics,? Urine culture pending. ? Also be ? Behaviorally agitated with frontotemporal dementia need psych followup. Quality Stroke Does the patient have a stroke diagnosis?: No VTE Prior VTE?: No VTE Risk Level:: Medical - moderate - high VTE Device Contraindication: N/A - Device Ordered VTE Drug Contraindication: N/A - Med Ordered
[2022-10-05] MEDS: Albuterol Sulfate 7.5 MG, Albuterol Sulfate (0.083%) 2.5 MG 10 MG INHALE (15:15)
--- NOTE | 2022-10-05 16:54 | PM.PSYCN ---
History of Present Illness Date of Service: 10/05/22 Chief Complaint: Acute resp failure Reason for Consult: dispodimitry Requesting physician: Willy Dowling Discussed with referring provider: Yes Sources of Information: patient interviewed and chart reviewed HPI Narrative: I spoke with pt this evening. He continues non-adherence with treatment recommendations, although he briefly allowed for bipap treatment today. Pt says does what its advertised to do referring to bipap, makes it so im not having difficulty breathing, I blow of the excess co2. Pt is able to provide understanding of his medical conditions and the risks of non-adherence, I understand the seriousness of it, at the same time I take it with a certain amount of frivolity, I look at it as my life and I ramsey do want to . Pt continues to present with active suicidal ideation, anybody in their right mind would consider suicide referring to his chronic pain and medical conditions. Says he feels like when his providers offer treatment it feels like its arm twisting. Says his parents and children are unaware of his intention to refuse treatment and suicidal ideation, however his brothers and sister are aware, as he says he has been feeling this way for some time. 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 Pt is adamant about his plan to refuse further bipap, og been refusing to use the bipap, they know I wont do it. Says I cant function with that bipap, feels he cannot tolerate it, says it feels like gravity becomes stronger and stronger and pulls you against the wall, that's the feeling I get with it, its very uncomfortable. Pt asks me at least twice during interview to tell him the necessary dose of tylenol needed to complete suicide, does not appear to have insight into the inappropriateness of this or the quandary of needing to be able to leave the hospital to even access tylenol OTC and yet he is not participating in treatment to become well enough to leave the hospital. Says he slept pretty well on increased zyprexa. He cant say if hydroxyzine or prozac are helping. Continues to deny feeling depressed. [facility] Medical History (Updated 10/05/22 @ 12:46 by Gt Herrera MD) Acute on chronic respiratory failure with hypoxia and hypercapnia Atrial fibrillation Bipolar disorder COPD (chronic obstructive pulmonary disease) Dementia Hypertension Muscular dystrophy Oxygen dependent Respiratory failure with hypercapnia Diagnostics Vital Signs (24Hr): Vital Signs - 24 hr 10/04/22 20:00 10/05/22 02:44 10/05/22 07:27 Temperature 98.5 F 98.1 F 98.0 F Pulse Rate 85 65 67 Respiratory Rate 18 20 20 Blood Pressure 140/80 H 156/76 H 152/84 H Pulse Oximetry 91 L 92 93 Oxygen Delivery Method Nasal Cannula Nasal Cannula Nasal Cannula Oxygen Flow Rate 0.5 2 2 Fraction of Inspired Oxygen 10/05/22 11:26 10/05/22 11:40 10/05/22 14:54 Temperature 98.9 F 98.2 F Pulse Rate 62 69 Respiratory Rate 19 18 Blood Pressure 149/86 H 150/69 H Pulse Oximetry 91 L 90 L Oxygen Delivery Method Nasal Cannula Room Air Oxygen Flow Rate 2 Fraction of Inspired Oxygen 10/05/22 15:17 Temperature Pulse Rate 69 Respiratory Rate 20 Blood Pressure Pulse Oximetry Oxygen Delivery Method Oxygen Flow Rate Fraction of Inspired Oxygen BMI result Body Mass Index 23.5 Labs Results: 10/03/22 06:35 10/03/22 06:35 Labs: Laboratory Results - last 48 hr 10/05/22 10/05/22 09:11 09:19 VBG pH 7.46 H VBG pCO2 70 VBG pO2 80 VBG HCO3 50 H VBG O2 Saturation 98.0 VBG Base Excess 21.9 Troponin I High Sens 8.6 Imaging Radiology Impressions: ITS Impressions Chest X-Ray 10/01/22 00:36 IMPRESSION: Equivocal bibasilar airspace opacities, greater on the right side with possible small amount of right-sided pleural fluid. In view of limitations of the study, recommend a repeat imaging with also correlation with a lateral chest radiograph. Abdomen/Pelvis CT 10/01/22 03:46 IMPRESSION: 1. A 4 mm calculus at the right ureterovesical junction produces mild right hydroureteronephrosis. An additional 1 mm calculus is present in the right distal ureter. 2. Multiple additional punctate calculi in the right renal collecting system. 3. Thick-walled bladder with surrounding fat stranding, potentially due to chronic bladder outlet obstruction or cystitis. Borderline prostatomegaly 4. Partial collapse of the left lower lobe, partial collapse of the right lower lobe, and additional atelectasis in the upper lobes. 5. Osteoarthritis in the hips. No acute osseous findings. Fleischner guidelines were followed. Chest CT 10/01/22 03:46 IMPRESSION: 1. Multifocal atelectasis in the lungs with collapse of the right middle and left lower lobes as well as partial collapse of the right lower lobe and subsegmental atelectasis in the upper lobes.. Superimposed consolidation is possible, though not discretely seen. 2. Elevation of the right hemidiaphragm. Fleischner guidelines were followed. Head CT 10/01/22 03:46 IMPRESSION: No acute intracranial pathology. Bilateral mastoid effusions. This may be asymptomatic, though consider correlation for clinical findings of mastoiditis. Chest X-Ray 10/05/22 09:18 IMPRESSION: Small to moderate pleural effusion represents interval increase from the previous study. Mental Status Exam Mental Status Exam Narrative: A&O. Unkempt, frail, in hospital attire. Poor eye contact, attentive. No Tics or Tremors. No abnormal involuntary movements. Calm, cooperative, engaged. Non-pressured speech, slowed, spontaneous, soft spoken. No prolonged speech latency or dysarthria. Mood is ?okay,? affect is euthymic. Denies SI/SIB/HI upon inquiry. Denies A/VH or delusional thought content. Thoughts are coherent, organized. No known cognitive or memory impairment. Insight/ Judgment limited today. Medications Medications Current Medications Albuterol/Ipratropium (Albuterol/Iprat 2.5/0.5mg 3 Ml Ampul.Neb) 3 ml INHALE RQ6H WHILE AWAKE [facility] Last Admin: 10/05/22 15:15 Dose: Not Given Apixaban (Apixaban 5 Mg Tablet) 5 mg PO BID [facility] Last Admin: 10/05/22 09:01 Dose: 5 mg Azithromycin (Azithromycin 500 Mg Tablet) 500 mg PO Q24H [facility] Last Admin: 10/04/22 18:28 Dose: Not Given Cefuroxime Axetil (Cefuroxime Axetil 500 Mg Tablet) 500 mg PO Q12H [facility] Last Admin: 10/05/22 06:29 Dose: Not Given Cyanocobalamin (Cyanocobalamin (Vitamin B-12) 1,000 Mcg Tablet) 1,000 mcg PO DAILY [facility] Last Admin: 10/05/22 09:01 Dose: 1,000 mcg Docusate Sodium (Docusate Sodium 100 Mg Capsule) 100 mg PO BID [facility] Last Admin: 10/05/22 09:02 Dose: Not Given Fluoxetine HCl (Fluoxetine Hcl 20 Mg Capsule) 40 mg PO DAILY [facility] Last Admin: 10/05/22 09:01 Dose: 40 mg Hydroxyzine HCl (Hydroxyzine Hcl 25 Mg Tablet) 25 mg PO Q6H PRN PRN Reason: anxiety Last Admin: 10/05/22 03:23 Dose: 25 mg Loperamide HCl (Loperamide Hcl 2 Mg Capsule) 2 mg PO TID PRN PRN Reason: Diarrhea Last Admin: 10/04/22 08:33 Dose: 2 mg Melatonin (Melatonin 3 Mg Tablet) 6 mg PO BEDTIME [facility] Last Admin: 10/04/22 22:35 Dose: 6 mg Metoprolol Succinate (Metoprolol Succinate Er 50 Mg Tab.Er.24h) 50 mg PO DAILY [facility]; Protocol Last Admin: 10/05/22 09:00 Dose: 50 mg Olanzapine (Olanzapine 5 Mg Tablet) 5 mg PO BEDTIME [facility] Last Admin: 10/04/22 22:35 Dose: 5 mg Potassium Phos/Sodium Phos (Sodium,Potassium Phosphates Powd.Pack) 1 packet PO QID [facility] Last Admin: 10/05/22 12:10 Dose: 1 packet Prednisone (Prednisone 20 Mg Tablet) 40 mg PO DAILY [facility] Last Admin: 10/05/22 09:00 Dose: 40 mg Ropinirole HCl (Ropinirole Hcl 0.25 Mg Tablet) 0.25 mg PO BEDTIME [facility] Last Admin: 10/04/22 22:35 Dose: 0.25 mg Allergies Allergies Allergy/AdvReac Type Severity Reaction Status Date / Time No Known Allergies Allergy Verified 10/01/22 00:06 Assessment & Plan Assessment & Plan (1) MDD (major depressive disorder), recurrent episode, moderate: Status: Acute Code(s): F33.1 - Major depressive disorder, recurrent, moderate (2) Dementia: Status: Acute Code(s): F03.90 - Unspecified dementia, unspecified severity, without behavioral disturbance, psychotic disturbance, mood disturbance, and anxiety Plan Plan: 10/03 Pt is refusing treatment, continues to endorse SI. I recommend dispo to inpatient psych unit for treatment of his depression. Pt is not currently voluntary for a psych admission and would be appropriate for a section 12B, as he endorses SI with plan to refuse treatment and allow his medical condition to continue to decline. Monitor recent med changes for benefit i.e. Prozac 40 mg daily for depression, anxiety, Zyprexa 5 mg HS for sleep, anxiety, and hydroxyzine 25 mg Q6H PRN for anxiety. Cannot leave AMA. Will need consult with CARE team. 10/04 Pt asleep, continues to refuse tx 10/05 Pt continues to endorse active SI, disposition for inpatient psych admission is appropriate, may need section 12B upon medical clearance. Will increase hydroxyzine 50 mg Q6H PRN for anxiety and consider increasing prozac further for depression. I have shared this with Dr. Dowling Thank you for this consultation. If you have any questions or concerns, please do not hesitate to contact psychiatry service. I spent minutes with the patient and/or on the patient floor today, greater than?50% of which was spent counseling/coordinating care. Patient educated on: medication risk/benefits and therapeutic strategies
[2022-10-05] MEDS: Azithromycin 500 MG TABLET PO (18:07)
[2022-10-05] MEDS: Albuterol/Iprat 2.5/0.5MG 3 ML AMPUL.NEB INHALE (19:59)
[2022-10-05] MEDS: Melatonin 3 MG TABLET 6 MG PO (20:46)
[2022-10-05] MEDS: OLANZapine 5 MG TABLET PO (20:47)
[2022-10-05] MEDS: rOPINIRole HCL 0.25 MG TABLET PO (20:47)
[2022-10-05] MEDS: Docusate Sodium 100 MG CAPSULE PO (20:47)
[2022-10-06] VITALS (7 sets, daily range): BP systolic 129–147; BP diastolic 61–70; PULSE 62–74; RESP 15–28; TEMP 36.3–36.9; O2SAT 92–95; BMI 22.8
[2022-10-06] MEDS: hydrOXYzine HCL 50 MG TABLET PO ×2 (02:16→13:45)
[2022-10-06] MEDS: Albuterol/Iprat 2.5/0.5MG 3 ML AMPUL.NEB INHALE ×2 (07:59→19:52)
[2022-10-06] MEDS: FLUoxetine HCl 20 MG CAPSULE 40 MG PO (08:17)
[2022-10-06] MEDS: Apixaban 5 MG TABLET PO ×2 (08:17→21:22)
[2022-10-06] MEDS: Cyanocobalamin (Vitamin B-12) 1,000 MCG TABLET 1000 MCG PO (08:17)
[2022-10-06] MEDS: Docusate Sodium 100 MG CAPSULE PO ×2 (08:17→21:22)
[2022-10-06] MEDS: Metoprolol Succinate ER 50 MG TAB.ER.24H PO (08:17)
[2022-10-06] MEDS: predniSONE 20 MG TABLET 40 MG PO (08:17)
[2022-10-06] MEDS: Sodium,Potassium Phosphates POWD.PACK 1 PACKET PO ×4 (08:18→21:23)
--- NOTE | 2022-10-06 09:36 | MHC.CARE ---
Patient evaluated by [facility], does not need inpatient admission. Per clinician he is not suicidal, is taking medication and would like to return to SNF when able to leave the hospital.
--- NOTE | 2022-10-06 11:41 | MHC.CM.PN ---
Psych is now recommending IPLOC R/T SI. Patient is from LT @ [facility]. CM will follow.
--- NOTE | 2022-10-06 12:08 | PM.PNPUL ---
Subjective Subjective Date of Service: 10/06/22 Interval history: Seen and examined. He did not use the BIPAP because he is concerned that he can not take it off if he needs it off. Also, complaining of abdominal pain. He is willing to try the BIPAP as long as someone stays with him for a period of time. Objective Data Labs CBC & Chem 7: 10/03/22 06:35 10/03/22 06:35 Microbiology Microbiology Results: Microbiology 10/01/22 00:46 Blood - Venous Blood Culture - Final No growth after 5 days. 10/01/22 00:28 Blood - Venous Blood Culture - Final No growth after 5 days. 10/01/22 Unknown Urine clean catch - Urine rodríguez top Urine Culture - Final Review of Systems Constitutional: Reports fatigue, Denies fever(s) and Reports weakness Eyes: Denies blurry vision Denies change in voice Cardiovascular: Denies chest pain Respiratory: Reports chest congestion, Reports cough and Denies wheezing Gastrointestinal: Reports no additional gastrointestinal complaints Musculoskeletal: Reports limited range of motion and Reports muscle weakness Reports weakness Psychiatric: Reports depression Endocrine: Reports fatigue Hematologic/Lymphatic: Denies easy bleeding and Denies easy bruising Allergic/Immunologic: Denies wheezing Physical Exam Vital Signs: Vital Signs: Last Vital Signs Temp 98.0 F 10/06/22 07:55 Pulse 62 10/06/22 08:00 Resp 18 10/06/22 08:00 BP 147/68 H 10/06/22 07:55 Pulse Ox 94 10/06/22 07:55 O2 Del Method 10/06/22 07:55 O2 Flow Rate 1 10/06/22 07:55 FiO2 21 10/05/22 11:26 Oxygen Flow Rate 6 10/01/22 00:07 BMI result Body Mass Index 22.8 Const: General: no acute distress, alert and awake Eyes: Sclerae: sclerae normal EOM: EOMs intact bilaterally Neck: Neck: Yes no lymphadenopathy, Yes trachea midline and Yes supple Chest: Chest palpation & inspection: normal inspection of the chest Resp: Effort & Inspection: decreased respiratory effort and no respiratory distress Auscultation: diminished lung sounds Cardio: Rate: regular rate Rhythm: regular rhythm Heart sounds: no gallops, no murmurs and no rubs GI: Palpation (GI): Soft to palpation and Other GI palpation findings present ( Nontender) Auscultation: normal bowel sounds Extrem: General: Yes no pedal edema, No clubbing and No cyanosis Procedures Date of Service Date of Service: 10/06/22 Assessment and Plan Assessment and plan (1) Acute on chronic respiratory failure with hypoxia and hypercapnia: Status: Acute (2) Muscular dystrophy: Status: Acute (3) Oxygen dependent: Status: Acute (4) Pneumonia: Status: Acute Plan Progressive MD now with pulmonary involvement. His PCO2 has been steady increasing. REC: recheck ABG adjusted BIPAP 08/18, please trial again with respiratory. baphasic ventilator maybe something to consider, but not available at this time complete 8 day course of antibiotics The patient is ok to go to psych only if the PCO2 is stable if the ABG demonstrates compensated chronic hypercarbia Time Spent With Patient Time: Total time spent is greater than 50% in coordination of care (as documented) at patient's floor/unit and/or counseling patient: Progress Note: Quality Stroke Does the patient have a stroke diagnosis?: No
--- NOTE | 2022-10-06 16:11 | HO.PM.IMPN ---
Subjective Subjective Date of Service: 10/06/22 Interval History: COPD exacerbation Review of Systems still short of breath, slightly anxious ?intermittently declines treatments Physical Exam Vital Signs: Vital Signs: Last Vital Signs Temp 97.3 F 10/06/22 15:03 Pulse 74 10/06/22 15:03 Resp 18 10/06/22 15:03 BP 135/61 10/06/22 15:03 Pulse Ox 94 10/06/22 15:03 O2 Del Method 10/06/22 15:03 O2 Flow Rate 1 10/06/22 12:00 FiO2 21 10/05/22 11:26 Oxygen Flow Rate 6 10/01/22 00:07 BMI result Body Mass Index 22.8 ?Appearance: Alert.? awake ,but agiatated,still sob cvs: rrr, [id number] , no murmur res:air enrty similar to yesterday,still b/l wheezin abd: no rebound or guarding ,nt, bs present. ext pulses present , no cyanosis . neuro: axo3 , nonfocal. Objective Data Active Medications Albuterol/Ipratropium (Albuterol/Iprat 2.5/0.5mg 3 Ml Ampul.Neb) 3 ml INHALE RQ6H WHILE AWAKE [facility] Last Admin: 10/06/22 13:02 Dose: Not Given Documented By: FLORESITA Non-Admin Reason: Patient Asleep Apixaban (Apixaban 5 Mg Tablet) 5 mg PO BID [facility] Last Admin: 10/06/22 08:17 Dose: 5 mg Documented By: KIMMIE Azithromycin (Azithromycin 500 Mg Tablet) 500 mg PO Q24H [facility] Last Admin: 10/05/22 18:07 Dose: 500 mg Documented By: KENDRA Cefuroxime Axetil (Cefuroxime Axetil 500 Mg Tablet) 500 mg PO Q12H [facility] Last Admin: 10/06/22 05:49 Dose: 500 mg Documented By: MANI Cyanocobalamin (Cyanocobalamin (Vitamin B-12) 1,000 Mcg Tablet) 1,000 mcg PO DAILY [facility] Last Admin: 10/06/22 08:17 Dose: 1,000 mcg Documented By: KIMMIE Docusate Sodium (Docusate Sodium 100 Mg Capsule) 100 mg PO BID [facility] Last Admin: 10/06/22 08:17 Dose: 100 mg Documented By: KIMMIE Fluoxetine HCl (Fluoxetine Hcl 20 Mg Capsule) 40 mg PO DAILY [facility] Last Admin: 10/06/22 08:17 Dose: 40 mg Documented By: KIMMIE Hydroxyzine HCl (Hydroxyzine Hcl 50 Mg Tablet) 50 mg PO Q6H PRN PRN Reason: anxiety Last Admin: 10/06/22 13:45 Dose: 50 mg Documented By: KIMMIE Loperamide HCl (Loperamide Hcl 2 Mg Capsule) 2 mg PO TID PRN PRN Reason: Diarrhea Last Admin: 10/04/22 08:33 Dose: 2 mg Documented By: CAMILLE Melatonin (Melatonin 3 Mg Tablet) 6 mg PO BEDTIME [facility] Last Admin: 10/05/22 20:46 Dose: 6 mg Documented By: MANI Metoprolol Succinate (Metoprolol Succinate Er 50 Mg Tab.Er.24h) 50 mg PO DAILY [facility]; Protocol Last Admin: 10/06/22 08:17 Dose: 50 mg Documented By: KIMMIE Olanzapine (Olanzapine 5 Mg Tablet) 5 mg PO BEDTIME [facility] Last Admin: 10/05/22 20:47 Dose: 5 mg Documented By: MANI Potassium Phos/Sodium Phos (Sodium,Potassium Phosphates Powd.Pack) 1 packet PO QID [facility] Last Admin: 10/06/22 13:45 Dose: 1 packet Documented By: KIMMIE Prednisone (Prednisone 20 Mg Tablet) 40 mg PO DAILY [facility] Last Admin: 10/06/22 08:17 Dose: 40 mg Documented By: KIMMIE Ropinirole HCl (Ropinirole Hcl 0.25 Mg Tablet) 0.25 mg PO BEDTIME [facility] Last Admin: 10/05/22 20:47 Dose: 0.25 mg Documented By: MANI Labs CBC & Chem 7: 10/03/22 06:35 10/03/22 06:35 Microbiology Microbiology Results: Microbiology 10/01/22 00:46 Blood Culture - Final Blood - Venous No growth after 5 days. 10/01/22 00:28 Blood Culture - Final Blood - Venous No growth after 5 days. Assessment and Plan (1) Acute on chronic respiratory failure with hypoxia and hypercapnia: Status: Acute (2) Muscular dystrophy: Status: Acute (3) History of chronic carbon dioxide retention: Status: Acute (4) UTI (urinary tract infection): Status: Acute (5) Dementia: Status: Acute (6) Depression: Status: Acute Plan acute hypoxemic/ hypercarbic respiratory failure secondary to COPD exacerbation:? ?Still sob ,work of breathing seems slightly improvin sats seems improivng taper oxygen refused abg this morning ?will repeat VBG further worsening of shortness of breath or desaturation pulm eval noted - continue nebs, oxygen, steroids, antibiotics, again reinfored for bipap-hopefully will try . ? Bradycardia episode? yesterday : no new episode . ?TSH normal, currently in sinus rhythm adjusted metoprolol ? Continue to monitor ?possible history ofAtrial fibrillation: ?continue Eliquis, metoprolol. uti: follow urine cultures -mix will switch to po antibiotics Bipolar disorder?: satrted his home meds, prn hydraoxizine used in icu. Dementia/frontotemproal dementia: continue supportive care ,home meds added. ? Patient is agitated, intermittent refusing treatment: ?? added p.r.n. Atarax cleared by care team/[facility] crisis- as per note Patient evaluated by [facility], does not need inpatient admission. Per clinician he is not suicidal, is taking medication and would like to return to SNF when able to leave the hospital. depression : psych following Hypertension: adjusted metoprolol to 25mg home dose. Muscular dystrophy: supportive care Oxygen dependent inaptient need:acute hypoxemic/ hypercarbic respiratory failure secondary to COPD exacerbation: need IV steroids, antibiotics, oxygen and? UTI was antibiotics,? Urine culture pending. ? Also be ? Behaviorally agitated with frontotemporal dementia need psych followup. Quality Stroke Does the patient have a stroke diagnosis?: No VTE Prior VTE?: No VTE Risk Level:: Medical - moderate - high VTE Device Contraindication: N/A - Device Ordered VTE Drug Contraindication: N/A - Med Ordered
--- NOTE | 2022-10-06 16:34 | MHC.CARE ---
Per chart review, pt was determined to need IP psych by psychiatric security nurse Jocelin on 10/05, however it is appears that on 10/06 [facility] crisis came and saw pt and cleared him due to no longer endorsing SI, taking medications and agreed will return back to SNF. Per Gabriella Amin, Behavioral Health director pt needs to be re-evaluated by the psych team and then consult CARE Team and or [facility].
[2022-10-06] MEDS: Azithromycin 500 MG TABLET PO (17:41)
[2022-10-06] MEDS: Melatonin 3 MG TABLET 6 MG PO (21:22)
[2022-10-06] MEDS: rOPINIRole HCL 0.25 MG TABLET PO (21:22)
[2022-10-06] MEDS: OLANZapine 5 MG TABLET PO (21:22)
[2022-10-07] VITALS (11 sets, daily range): BP systolic 113–155; BP diastolic 56–96; PULSE 62–88; RESP 17–38; TEMP 36.1–36.8; O2SAT 88–99; BMI 24.4
[2022-10-07] MEDS: hydrOXYzine HCL 50 MG TABLET PO (04:53)
[2022-10-07 08:08] LABS: Anion Gap 15 (12-20); Blood Urea Nitrogen 19 mg/dL (9-16); Calcium 9.1 mg/dL (8.4-10.2); Carbon Dioxide 42 mmol/L (22-29); Chloride 92 mmol/L (96-108); Creatinine Clr Calc Pharmacy 152.8; Estimated Glomerular Filt Rate > 60; Glucose Random 253 mg/dL (60-115); Potassium 4.4 mmol/L (3.3-5.1); Sodium 145 mmol/L (135-145)
[2022-10-07] MEDS: Albuterol/Iprat 2.5/0.5MG 3 ML AMPUL.NEB INHALE ×2 (08:38→18:51)
[2022-10-07] MEDS: FLUoxetine HCl 20 MG CAPSULE 40 MG PO (09:32)
[2022-10-07] MEDS: Apixaban 5 MG TABLET PO ×2 (09:32→22:34)
[2022-10-07] MEDS: Sodium,Potassium Phosphates POWD.PACK 1 PACKET PO ×4 (09:32→22:34)
[2022-10-07] MEDS: predniSONE 20 MG TABLET 40 MG PO (09:32)
[2022-10-07] MEDS: Metoprolol Succinate ER 50 MG TAB.ER.24H PO (09:32)
[2022-10-07] MEDS: Cyanocobalamin (Vitamin B-12) 1,000 MCG TABLET 1000 MCG PO (09:33)
[2022-10-07 09:38] LABS: ABG Base Excess 30.8 mmol/L; ABG HCO3 65 mmol/L (22-26); ABG pCO2 129 mmHg (32-45); ABG pH 7.31 (7.35-7.45); ABG pO2 47 mmHg (83-108)
--- NOTE | 2022-10-07 11:11 | PM.PNPUL ---
Subjective Subjective Date of Service: 10/07/22 Interval history: The patient was seen on exam. ABG had been done demonstrating acute on chronic hypercarbic respiratory failure. Patient is DNR DNI. He still struggles with his BiPAP. There significant leakage issues therefore he had his bridges shaved. He will have his BiPAP place again. The patient has become more somnolent. 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 Although the patient has major depression I do believe that he also understands the gravity of his medical illness. The patient does not have a lot of family support in the area and stay mostly live in [place]. Objective Data Labs CBC & Chem 7: 10/03/22 06:35 10/07/22 06:16 Labs: Laboratory Results - last 24 hr 10/07/22 10/07/22 06:16 09:33 O2 Saturation 77.0 ABG pH at Pt Temp 7.31 L ABG pCO2 at Pt Temp 129 H* ABG pO2 at Pt Temp 47 L* ABG HCO3 65 H ABG Base Excess (Actual) 30.8 Sodium 145 Potassium 4.4 Chloride 92 L Carbon Dioxide 42 H* Anion Gap 15 BUN 19 H Creatinine 0.53 Estim Creat Clear Calc 152.8 Estimated GFR > 60 Random Glucose 253 H Calcium 9.1 Microbiology Microbiology Results: Microbiology 10/01/22 00:46 Blood - Venous Blood Culture - Final No growth after 5 days. 10/01/22 00:28 Blood - Venous Blood Culture - Final No growth after 5 days. 10/01/22 Unknown Urine clean catch - Urine rodríguez top Urine Culture - Final Review of Systems Review of Systems Yes Unobtainable due to mental status Physical Exam Vital Signs: Vital Signs: Last Vital Signs Temp 97.2 F 10/07/22 07:56 Pulse 75 10/07/22 08:40 Resp 26 H 10/07/22 08:40 BP 155/77 H 10/07/22 07:56 Pulse Ox 91 L 10/07/22 07:56 O2 Del Method 10/07/22 07:56 O2 Flow Rate 3 10/07/22 07:56 FiO2 21 10/05/22 11:26 Oxygen Flow Rate 6 10/01/22 00:07 BMI result Body Mass Index 24.4 Const: General: lethargic Orientation/consciousness: lethargic Eyes: Sclerae: sclerae normal EOM: EOMs intact bilaterally Neck: Neck: Yes no lymphadenopathy, Yes trachea midline and Yes supple Chest: Chest palpation & inspection: normal inspection of the chest Resp: Effort & Inspection: decreased respiratory effort and no respiratory distress Auscultation: diminished lung sounds Cardio: Rate: regular rate Rhythm: regular rhythm Heart sounds: no gallops, no murmurs and no rubs GI: Palpation (GI): Soft to palpation and Other GI palpation findings present ( Nontender) Auscultation: normal bowel sounds Extrem: General: Yes no pedal edema, No clubbing and No cyanosis Procedures Date of Service Date of Service: 10/07/22 Assessment and Plan Assessment and plan (1) Acute on chronic respiratory failure with hypoxia and hypercapnia: Status: Acute (2) Muscular dystrophy: Status: Acute (3) Pneumonia: Status: Acute Plan Re-attempt BiPAP Monitor ABG The patient is DNR DNI therefore, I will not pursue to change the code status in view of his progressive disease. With the progressive muscular dystrophy the patient is unable to maintain proper gas exchange without a noninvasive or invasive ventilator. If the patient does not tolerate positive pressure ventilation, then, would be reasonable to approach family in to discuss with the patient about end of life care or goals of care. Time Spent With Patient Time: Total time spent is greater than 50% in coordination of care (as documented) at patient's floor/unit and/or counseling patient: Progress Note: Quality Stroke Does the patient have a stroke diagnosis?: No
--- NOTE | 2022-10-07 12:19 | P.PNIM_ITS ---
Subjective Subjective Date of Service: 10/07/22 Interval History: Follow up COPD exacerbation Review of Systems still short of breath, slightly anxious intermittently declines treatments Physical Exam Vital Signs: Vital Signs: Last Vital Signs Temp 98.2 F 10/07/22 11:34 Pulse 88 10/07/22 11:34 Resp 20 10/07/22 11:34 BP 148/88 H 10/07/22 11:34 Pulse Ox 94 10/07/22 11:34 O2 Del Method 10/07/22 11:34 O2 Flow Rate 3 10/07/22 07:56 FiO2 30 10/07/22 11:34 Oxygen Flow Rate 6 10/01/22 00:07 BMI result Body Mass Index 24.4 Appearing in no acute distress lung sounds are clear to auscultation heart regular rate rhythm, clear S1, S2 positive bowel sounds, abdomen is soft, nontender neuro patient is alert x3, no focal deficits Objective Data Active Medications Albuterol/Ipratropium (Albuterol/Iprat 2.5/0.5mg 3 Ml Ampul.Neb) 3 ml INHALE RQ6H WHILE AWAKE [facility] Last Admin: 10/07/22 08:38 Dose: 3 ml Documented By: ANGÉLICA Apixaban (Apixaban 5 Mg Tablet) 5 mg PO BID [facility] Last Admin: 10/07/22 09:32 Dose: 5 mg Documented By: CLIF Azithromycin (Azithromycin 500 Mg Tablet) 500 mg PO Q24H [facility] Last Admin: 10/06/22 17:41 Dose: 500 mg Documented By: KIMMIE Cefuroxime Axetil (Cefuroxime Axetil 500 Mg Tablet) 500 mg PO Q12H [facility] Last Admin: 10/07/22 06:16 Dose: 500 mg Documented By: SERGIO Cyanocobalamin (Cyanocobalamin (Vitamin B-12) 1,000 Mcg Tablet) 1,000 mcg PO DAILY [facility] Last Admin: 10/07/22 09:33 Dose: 1,000 mcg Documented By: CLIF Docusate Sodium (Docusate Sodium 100 Mg Capsule) 100 mg PO BID [facility] Last Admin: 10/07/22 09:40 Dose: Not Given Documented By: CLIF Non-Admin Reason: Patient Refused Fluoxetine HCl (Fluoxetine Hcl 20 Mg Capsule) 40 mg PO DAILY [facility] Last Admin: 10/07/22 09:32 Dose: 40 mg Documented By: CLIF Hydroxyzine HCl (Hydroxyzine Hcl 50 Mg Tablet) 50 mg PO Q6H PRN PRN Reason: anxiety Last Admin: 10/07/22 04:53 Dose: 50 mg Documented By: SERGIO Loperamide HCl (Loperamide Hcl 2 Mg Capsule) 2 mg PO TID PRN PRN Reason: Diarrhea Last Admin: 10/04/22 08:33 Dose: 2 mg Documented By: JORGE-JORGE Melatonin (Melatonin 3 Mg Tablet) 6 mg PO BEDTIME [facility] Last Admin: 10/06/22 21:22 Dose: 6 mg Documented By: ROGE Metoprolol Succinate (Metoprolol Succinate Er 50 Mg Tab.Er.24h) 50 mg PO DAILY [facility]; Protocol Last Admin: 10/07/22 09:32 Dose: 50 mg Documented By: CLIF Olanzapine (Olanzapine 5 Mg Tablet) 5 mg PO BEDTIME [facility] Last Admin: 10/06/22 21:22 Dose: 5 mg Documented By: ROGE Potassium Phos/Sodium Phos (Sodium,Potassium Phosphates Powd.Pack) 1 packet PO QID [facility] Last Admin: 10/07/22 09:32 Dose: 1 packet Documented By: CLIF Prednisone (Prednisone 20 Mg Tablet) 40 mg PO DAILY [facility] Last Admin: 10/07/22 09:32 Dose: 40 mg Documented By: CLIF Ropinirole HCl (Ropinirole Hcl 0.25 Mg Tablet) 0.25 mg PO BEDTIME [facility] Last Admin: 10/06/22 21:22 Dose: 0.25 mg Documented By: ROGE Labs CBC & Chem 7: 10/03/22 06:35 10/07/22 06:16 Labs: Laboratory Results - last 24 hr 10/07/22 10/07/22 06:16 09:33 O2 Saturation 77.0 ABG pH at Pt Temp 7.31 L ABG pCO2 at Pt Temp 129 H* ABG pO2 at Pt Temp 47 L* ABG HCO3 65 H ABG Base Excess (Actual) 30.8 Anion Gap 15 Estim Creat Clear Calc 152.8 Estimated GFR > 60 Random Glucose 253 H Calcium 9.1 Assessment and Plan (1) Acute on chronic respiratory failure with hypoxia and hypercapnia: Status: Acute (2) Muscular dystrophy: Status: Acute (3) History of chronic carbon dioxide retention: Status: Acute (4) UTI (urinary tract infection): Status: Acute (5) Dementia: Status: Acute (6) Depression: Status: Acute Plan 67-year-old man admitted from group home facility with complaints of dyspnea, patient noted to be hypoxic and hypercapnic requiring BiPAP support. Patient admitted to ICU initially and titrated off BiPAP to supplemental oxygen. Transferred to medical floor on 10/01/2022 Acute hypoxemic/ hypercarbic respiratory failure secondary to COPD exacerbation Still sob ,work of breathing seems slightly improving ABG 7.31/129/47/65, will discuss the need for bipap with ICU pulm eval noted - continue nebs, oxygen, steroids, antibiotics Continue as needed BiPAP, discussed with crate opener, may need trach as he is oxygen dependent and his muscular dystrophy is progressing Bradycardia episode. One episode no further episodes noted TSH normal, currently in sinus rhythm metoprolol adjusted history of Atrial fibrillation, unspecified continue Eliquis, metoprolol. UTI follow urine cultures -mix will switch to po antibiotics Bipolar disorder home meds, prn hydraoxizine used in icu. Dementia/frontotemproal dementia continue supportive care ,home meds added. Patient is agitated, intermittent refusing treatment: added p.r.n. Atarax once medically cleared will need psych eval for SI Hypertension adjusted metoprolol to 25mg Muscular dystrophy supportive care Oxygen dependent DVT prophylaxis with [facility] Attending Dr. Christensen Attempted to reach out to family member, sister on chart, no answer, need to discuss possibility of a trach inpatient need:acute hypoxemic/ hypercarbic respiratory failure secondary to COPD exacerbation: need IV steroids, antibiotics, oxygen and? UTI was antibiotics,? Urine culture pending. ? Quality Stroke Does the patient have a stroke diagnosis?: No VTE Prior VTE?: No VTE Risk Level:: Medical - moderate - high VTE Device Contraindication: N/A - Device Ordered VTE Drug Contraindication: N/A - Med Ordered
[2022-10-07 15:02] LABS: ABG Refer to POC result
--- NOTE | 2022-10-07 16:04 | PC.NURSE ---
critical CO2 of 42 this morning at 8:08 - provider notified. pt found to be on 4L NC by RT, per RT pt was lethargic and recommended ABGs to be drawn - Provider notified. PT now on Bipap and sating high 80s low 90s. goal is to maintain O2 between 88%-92% on room air.
[2022-10-07] MEDS: Azithromycin 500 MG TABLET PO (17:48)
[2022-10-07 18:36] LABS: VBG Base Excess 26.2 mmol/L; VBG HCO3 53 mmol/L (22-26); VBG pCO2 59 mmHg; VBG pH 7.55 (7.32-7.43); VBG pO2 208 mmHg
[2022-10-07 18:37] LABS: Venous Blood Gas Refer to POC result
--- NOTE | 2022-10-07 19:28 | PC.NURSE ---
this nurse went to check on pt about 30 minutes after dinner time to put Bipap back on pt however pt refused Bipap at this time. this nurse educated pt the importance of the Bipap - how it'll help him breath better, how pt was sating in high 80s and low 90s on bipap and by breathing better pt will be less anxious. pt is aware of the risks of being of Bipap.
[2022-10-07] MEDS: Melatonin 3 MG TABLET 6 MG PO (22:34)
[2022-10-07] MEDS: OLANZapine 5 MG TABLET PO (22:34)
[2022-10-07] MEDS: rOPINIRole HCL 0.25 MG TABLET PO (22:34)
[2022-10-07] MEDS: Docusate Sodium 100 MG CAPSULE PO (22:34)
[2022-10-08] VITALS (8 sets, daily range): BP systolic 126–160; BP diastolic 60–80; PULSE 69–90; RESP 16–37; TEMP 36.1–36.7; O2SAT 90–96; BMI 22.8
[2022-10-08] MEDS: Albuterol/Iprat 2.5/0.5MG 3 ML AMPUL.NEB INHALE (07:49)
[2022-10-08] MEDS: FLUoxetine HCl 20 MG CAPSULE 40 MG PO (09:17)
[2022-10-08] MEDS: predniSONE 20 MG TABLET 40 MG PO (09:17)
[2022-10-08] MEDS: Cyanocobalamin (Vitamin B-12) 1,000 MCG TABLET 1000 MCG PO (09:17)
[2022-10-08] MEDS: Metoprolol Succinate ER 50 MG TAB.ER.24H PO (09:17)
[2022-10-08] MEDS: Sodium,Potassium Phosphates POWD.PACK 1 PACKET PO ×4 (09:17→19:47)
[2022-10-08] MEDS: Apixaban 5 MG TABLET PO ×2 (09:17→19:46)
[2022-10-08] MEDS: hydrOXYzine HCL 50 MG TABLET PO (11:05)
--- NOTE | 2022-10-08 13:34 | HO.PM.IMPN ---
Subjective Subjective Date of Service: 10/08/22 Interval History: seen and examined this morning follow up for respiratory failure reports that his breathing is better today declined bipap overnight Review of Systems Review of Systems: Yes all other systems are reviewed and are negative Constitutional Constitutional: Denies chills and Denies fever(s) Cardiovascular Cardiovascular: Denies chest pain and Denies palpitations Respiratory Respiratory: Denies cough Gastrointestinal Gastrointestinal: Denies abdominal pain, Denies nausea and Denies vomiting Endocrine Endocrine: Denies palpitations Physical Exam Vital Signs: Vital Signs: Last Vital Signs Temp 98.0 F 10/08/22 12:00 Pulse 73 10/08/22 12:00 Resp 20 10/08/22 12:00 BP 160/73 H 10/08/22 12:00 Pulse Ox 96 10/08/22 12:00 O2 Del Method 10/08/22 12:00 O2 Flow Rate 1 10/08/22 12:00 FiO2 94 10/07/22 19:35 Oxygen Flow Rate 6 10/01/22 00:07 BMI result Body Mass Index 22.8 Const: General: cooperative, alert and awake Nutritional Appearance: average body habitus Resp: Other: appears somewhat tachypnic Effort & Inspection: able to speak in complete sentences Cardio: Rate: regular rate Heart sounds: S1 normal heart sound present and S2 normal heart sound present GI: Inspection: No distended Palpation (GI): Soft to palpation Neuro: Other: grossly nonfocal Extrem: General: Yes no pedal edema Objective Data Active Medications Apixaban (Apixaban 5 Mg Tablet) 5 mg PO BID [facility] Last Admin: 10/08/22 09:17 Dose: 5 mg Documented By: CLIF Azithromycin (Azithromycin 500 Mg Tablet) 500 mg PO Q24H [facility] Last Admin: 10/07/22 17:48 Dose: 500 mg Documented By: CLIF Cefuroxime Axetil (Cefuroxime Axetil 500 Mg Tablet) 500 mg PO Q12H [facility] Last Admin: 10/08/22 06:05 Dose: 500 mg Documented By: FÉLIX Cyanocobalamin (Cyanocobalamin (Vitamin B-12) 1,000 Mcg Tablet) 1,000 mcg PO DAILY [facility] Last Admin: 10/08/22 09:17 Dose: 1,000 mcg Documented By: CLIF Docusate Sodium (Docusate Sodium 100 Mg Capsule) 100 mg PO BID [facility] Last Admin: 10/08/22 09:21 Dose: Not Given Documented By: CLIF Non-Admin Reason: Patient Refused Fluoxetine HCl (Fluoxetine Hcl 20 Mg Capsule) 40 mg PO DAILY [facility] Last Admin: 10/08/22 09:17 Dose: 40 mg Documented By: CLIF Hydroxyzine HCl (Hydroxyzine Hcl 50 Mg Tablet) 50 mg PO Q6H PRN PRN Reason: anxiety Last Admin: 10/08/22 11:05 Dose: 50 mg Documented By: MAGALIS Loperamide HCl (Loperamide Hcl 2 Mg Capsule) 2 mg PO TID PRN PRN Reason: Diarrhea Last Admin: 10/04/22 08:33 Dose: 2 mg Documented By: CAMILLE Melatonin (Melatonin 3 Mg Tablet) 6 mg PO BEDTIME [facility] Last Admin: 10/07/22 22:34 Dose: 6 mg Documented By: FÉLIX Metoprolol Succinate (Metoprolol Succinate Er 50 Mg Tab.Er.24h) 50 mg PO DAILY [facility]; Protocol Last Admin: 10/08/22 09:17 Dose: 50 mg Documented By: CLIF Olanzapine (Olanzapine 5 Mg Tablet) 5 mg PO BEDTIME [facility] Last Admin: 10/07/22 22:34 Dose: 5 mg Documented By: FÉLIX Potassium Phos/Sodium Phos (Sodium,Potassium Phosphates Powd.Pack) 1 packet PO QID [facility] Last Admin: 10/08/22 09:17 Dose: 1 packet Documented By: CLIF Prednisone (Prednisone 20 Mg Tablet) 40 mg PO DAILY [facility] Last Admin: 10/08/22 09:17 Dose: 40 mg Documented By: CLIF Ropinirole HCl (Ropinirole Hcl 0.25 Mg Tablet) 0.25 mg PO BEDTIME [facility] Last Admin: 10/07/22 22:34 Dose: 0.25 mg Documented By: FÉLIX Labs CBC & Chem 7: 10/03/22 06:35 10/07/22 06:16 Labs: Laboratory Results - last 24 hr 10/07/22 18:30 VBG pH 7.55 H VBG pCO2 59 VBG pO2 208 VBG HCO3 53 H VBG O2 Saturation 100.0 VBG Base Excess 26.2 Assessment and Plan (1) Acute on chronic respiratory failure with hypoxia and hypercapnia: Status: Acute (2) MDD (major depressive disorder), recurrent episode, moderate: Status: Acute Plan 67-year-old man admitted from long term facility with complaints of dyspnea, patient noted to be hypoxic and hypercapnic requiring BiPAP support. Patient admitted to ICU initially and titrated off BiPAP to supplemental oxygen. Transferred to medical floor on 10/01/2022 Acute hypoxemic/ hypercarbic respiratory failure secondary to COPD exacerbation Still sob ,work of breathing seems slightly improving pulm eval noted - continue nebs, oxygen, steroids, antibiotics Continue as needed BiPAP, discussed with first dyer/pulm, if can't tolerate bipap may need trach vs biphasic ventilater as he is oxygen dependent and his muscular dystrophy is progressing Bradycardia episode. One episode no further episodes noted TSH normal, currently in sinus rhythm history of Atrial fibrillation, unspecified continue Eliquis, metoprolol. UTI follow urine cultures -mix completed course of abx Bipolar disorder home meds, prn hydraoxizine used in icu. Dementia/frontotemproal dementia continue supportive care ,home meds added. intermittent refusing treatment added p.r.n. Atarax seen by psych - need re-eval when medically ready to determine need for inpatient psych Hypertension continue metoprolol Muscular dystrophy supportive care Oxygen dependent DVT prophylaxis with [facility] Attending Dr. Christensen need to discuss possibility of a trach with family inpatient need:acute hypoxemic/ hypercarbic respiratory failure secondary to COPD exacerbatio ? Quality Stroke Does the patient have a stroke diagnosis?: No VTE Prior VTE?: No VTE Risk Level:: Medical - moderate - high VTE Device Contraindication: N/A - Device Ordered VTE Drug Contraindication: N/A - Med Ordered
--- NOTE | 2022-10-08 14:13 | PM.PNPUL ---
Subjective Subjective Date of Service: 10/08/22 Interval history: The patient was seen on exam. Today he seems to be more coherent. Although his work of breathing is noticeable. He only speak 1 Center side of time. He is using the oxygen. He has been reluctant to use the BiPAP. The only time she is able to use the BiPAP is when his CO2 is significantly elevated to the point that he is not as confrontational about it. We did talk about his progressive condition. 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 Without a ventilator of some type the patient will not be able to sustain life. He also carries a diagnosis of depression that makes it difficult with these discussions and decision making. Objective Data Labs CBC & Chem 7: 10/03/22 06:35 10/07/22 06:16 Labs: Laboratory Results - last 24 hr 10/07/22 18:30 VBG pH 7.55 H VBG pCO2 59 VBG pO2 208 VBG HCO3 53 H VBG O2 Saturation 100.0 VBG Base Excess 26.2 Microbiology Microbiology Results: Microbiology 10/01/22 00:46 Blood - Venous Blood Culture - Final No growth after 5 days. 10/01/22 00:28 Blood - Venous Blood Culture - Final No growth after 5 days. 10/01/22 Unknown Urine clean catch - Urine rodríguez top Urine Culture - Final Review of Systems Constitutional: Reports fatigue, Denies fever(s) and Reports weakness Eyes: Denies blurry vision Denies change in voice Cardiovascular: Denies chest pain and Reports dyspnea Respiratory: Reports cough, Reports dyspnea and Denies wheezing Gastrointestinal: Reports no additional gastrointestinal complaints Musculoskeletal: Reports limited range of motion and Reports muscle weakness Reports weakness Psychiatric: Reports depression Endocrine: Reports fatigue Hematologic/Lymphatic: Denies easy bleeding and Denies easy bruising Allergic/Immunologic: Denies wheezing Physical Exam Vital Signs: Vital Signs: Last Vital Signs Temp 98.0 F 10/08/22 12:00 Pulse 73 10/08/22 12:00 Resp 20 10/08/22 12:00 BP 160/73 H 10/08/22 12:00 Pulse Ox 96 10/08/22 12:00 O2 Del Method 10/08/22 12:00 O2 Flow Rate 1 10/08/22 12:00 FiO2 94 10/07/22 19:35 Oxygen Flow Rate 6 10/01/22 00:07 BMI result Body Mass Index 22.8 Const: General: alert and awake Chest: Chest palpation & inspection: normal inspection of the chest Resp: Other: appears somewhat tachypnic Effort & Inspection: decreased respiratory effort, tachypneic and uses accessory muscles Auscultation: diminished lung sounds Cardio: Rate: regular rate Heart sounds: S1 normal heart sound present and S2 normal heart sound present GI: Inspection: No distended Palpation (GI): Soft to palpation Neuro: Other: grossly nonfocal Extrem: General: Yes no pedal edema Procedures Date of Service Date of Service: 10/08/22 Assessment and Plan Assessment and plan (1) Acute on chronic respiratory failure with hypoxia and hypercapnia: Status: Acute (2) Muscular dystrophy: Status: Acute (3) Pneumonia: Status: Acute Plan Re-attempt BiPAP if PCO2 climbs Monitor ABG/VBG Will request bipahasic ventilator when available Recommend family discussion about his goals of care Poor prognosis Time Spent With Patient Time: Total time spent is greater than 50% in coordination of care (as documented) at patient's floor/unit and/or counseling patient: Progress Note: Quality Stroke Does the patient have a stroke diagnosis?: No
[2022-10-08] MEDS: Azithromycin 500 MG TABLET PO (17:39)
[2022-10-08] MEDS: Melatonin 3 MG TABLET 6 MG PO (19:46)
[2022-10-08] MEDS: rOPINIRole HCL 0.25 MG TABLET PO (19:46)
[2022-10-08] MEDS: Nystatin Powder 15 GM BOTTLE 1 APPL TOPICAL (19:47)
[2022-10-08] MEDS: OLANZapine 5 MG TABLET PO (19:47)
[2022-10-09 06:00] VITALS: BMI 22.8
[2022-10-09 06:45] LABS: Venous Blood Gas Refer to POC result
[2022-10-09 06:47] LABS: VBG Base Excess 29.9 mmol/L; VBG HCO3 62 mmol/L (22-26); VBG pCO2 102 mmHg; VBG pH 7.39 (7.32-7.43); VBG pO2 57 mmHg
[2022-10-09] MEDS: FLUoxetine HCl 20 MG CAPSULE 40 MG PO (10:12)
[2022-10-09] MEDS: Apixaban 5 MG TABLET PO ×2 (10:13→21:50)
[2022-10-09] MEDS: predniSONE 20 MG TABLET 40 MG PO (10:13)
[2022-10-09] MEDS: Cyanocobalamin (Vitamin B-12) 1,000 MCG TABLET 1000 MCG PO (10:13)
[2022-10-09] MEDS: Metoprolol Succinate ER 50 MG TAB.ER.24H PO (10:13)
[2022-10-09] MEDS: Sodium,Potassium Phosphates POWD.PACK 1 PACKET PO ×3 (10:13→21:49)
[2022-10-09] MEDS: Nystatin Powder 15 GM BOTTLE 1 APPL TOPICAL ×2 (10:15→22:04)
--- NOTE | 2022-10-09 11:29 | HO.PM.IMPN ---
Subjective Subjective Date of Service: 10/09/22 Interval History: follow up for respiratory failure breathing is stable, continues to decline bipap Review of Systems Review of Systems: Yes all other systems are reviewed and are negative Constitutional Constitutional: Denies chills and Denies fever(s) Cardiovascular Cardiovascular: Denies chest pain and Denies palpitations Respiratory Respiratory: Denies cough Gastrointestinal Gastrointestinal: Denies abdominal pain, Denies nausea and Denies vomiting Endocrine Endocrine: Denies palpitations Physical Exam Vital Signs: Vital Signs: Last Vital Signs Temp 97.0 F 10/08/22 23:00 Pulse 69 10/08/22 23:00 Resp 18 10/08/22 23:00 BP 137/69 10/08/22 23:00 Pulse Ox 94 10/08/22 23:00 O2 Del Method 10/08/22 23:00 O2 Flow Rate 2 10/08/22 23:00 FiO2 94 10/07/22 19:35 Oxygen Flow Rate 6 10/01/22 00:07 BMI result Body Mass Index 22.8 Objective Data Active Medications Apixaban (Apixaban 5 Mg Tablet) 5 mg PO BID [facility] Last Admin: 10/09/22 10:13 Dose: 5 mg Documented By: CLIF Azithromycin (Azithromycin 500 Mg Tablet) 500 mg PO Q24H [facility] Last Admin: 10/08/22 17:39 Dose: 500 mg Documented By: CLIF Cyanocobalamin (Cyanocobalamin (Vitamin B-12) 1,000 Mcg Tablet) 1,000 mcg PO DAILY [facility] Last Admin: 10/09/22 10:13 Dose: 1,000 mcg Documented By: CLIF Docusate Sodium (Docusate Sodium 100 Mg Capsule) 100 mg PO BID [facility] Last Admin: 10/09/22 10:15 Dose: Not Given Documented By: CLIF Non-Admin Reason: Patient Refused Fluoxetine HCl (Fluoxetine Hcl 20 Mg Capsule) 40 mg PO DAILY [facility] Last Admin: 10/09/22 10:12 Dose: 40 mg Documented By: CLIF Hydroxyzine HCl (Hydroxyzine Hcl 50 Mg Tablet) 50 mg PO Q6H PRN PRN Reason: anxiety Last Admin: 10/08/22 11:05 Dose: 50 mg Documented By: MAGALIS Loperamide HCl (Loperamide Hcl 2 Mg Capsule) 2 mg PO TID PRN PRN Reason: Diarrhea Last Admin: 10/04/22 08:33 Dose: 2 mg Documented By: CAMILLE Melatonin (Melatonin 3 Mg Tablet) 6 mg PO BEDTIME [facility] Last Admin: 10/08/22 19:46 Dose: 6 mg Documented By: ROCKY Metoprolol Succinate (Metoprolol Succinate Er 50 Mg Tab.Er.24h) 50 mg PO DAILY [facility]; Protocol Last Admin: 10/09/22 10:13 Dose: 50 mg Documented By: CLIF Nystatin (Nystatin Powder 15 Gm Bottle) 1 appl TOPICAL BID [facility]; Protocol Last Admin: 10/09/22 10:15 Dose: 1 appl Documented By: CLIF Olanzapine (Olanzapine 5 Mg Tablet) 5 mg PO BEDTIME [facility] Last Admin: 10/08/22 19:47 Dose: 5 mg Documented By: ROCKY Potassium Phos/Sodium Phos (Sodium,Potassium Phosphates Powd.Pack) 1 packet PO QID [facility] Last Admin: 10/09/22 10:13 Dose: 1 packet Documented By: CLIF Prednisone (Prednisone 20 Mg Tablet) 40 mg PO DAILY [facility] Last Admin: 10/09/22 10:13 Dose: 40 mg Documented By: CLIF Ropinirole HCl (Ropinirole Hcl 0.25 Mg Tablet) 0.25 mg PO BEDTIME [facility] Last Admin: 10/08/22 19:46 Dose: 0.25 mg Documented By: ROCKY Labs CBC & Chem 7: 10/03/22 06:35 10/07/22 06:16 Labs: Laboratory Results - last 24 hr 10/09/22 06:39 VBG pH 7.39 VBG pCO2 102 VBG pO2 57 VBG HCO3 62 H VBG O2 Saturation 88.0 VBG Base Excess 29.9 Assessment and Plan (1) Acute on chronic respiratory failure with hypoxia and hypercapnia: Status: Acute (2) MDD (major depressive disorder), recurrent episode, moderate: Status: Acute Plan 67-year-old man admitted from senior living facility with complaints of dyspnea, patient noted to be hypoxic and hypercapnic requiring BiPAP support. Patient admitted to ICU initially and titrated off BiPAP to supplemental oxygen. Transferred to medical floor on 10/01/2022 Acute hypoxemic/ hypercarbic respiratory failure secondary to COPD exacerbation, progressive MD Still sob ,work of breathing seems slightly improving pulm link noted - continue nebs, oxygen, steroids, antibiotics Continue as needed BiPAP, discussed with black off worker/pulm, if can't tolerate bipap may need trach vs biphasic ventilater as he is oxygen dependent and his muscular dystrophy is progressing Bradycardia episode. One episode no further episodes noted TSH normal, currently in sinus rhythm history of Atrial fibrillation, unspecified continue Eliquis, metoprolol. UTI follow urine cultures -mix completed course of abx Bipolar disorder home meds, prn hydraoxizine used in icu. Dementia/frontotemproal dementia continue supportive care ,home meds added. intermittent refusing treatment added p.r.n. Atarax Psych consult for capacity Hypertension continue metoprolol Muscular dystrophy supportive care Oxygen dependent DVT prophylaxis with [facility] Attending Dr. Christensen need to discuss possibility of a trach with family inpatient need:acute hypoxemic/ hypercarbic respiratory failure secondary to COPD exacerbation ? Quality Stroke Does the patient have a stroke diagnosis?: No VTE Prior VTE?: No VTE Risk Level:: Medical - moderate - high VTE Device Contraindication: N/A - Device Ordered VTE Drug Contraindication: N/A - Med Ordered
[2022-10-09] MEDS: Morphine Sulfate 2 MG/ML CARTRIDGE 1 MG IVPUSH (12:46)
[2022-10-09 13:00] VITALS: PULSE 64; RESP 17; O2SAT 89
[2022-10-09 16:00] VITALS: BP 160/75; PULSE 68; RESP 18; TEMP 36.7; O2SAT 94
[2022-10-09] MEDS: Azithromycin 500 MG TABLET PO (17:55)
[2022-10-09 19:40] VITALS: PULSE 84; RESP 18; O2SAT 94
[2022-10-09 20:00] VITALS: BP 121/61; PULSE 67; RESP 16; TEMP 36.8; O2SAT 92
[2022-10-09] MEDS: OLANZapine 5 MG TABLET PO (21:50)
[2022-10-09] MEDS: Docusate Sodium 100 MG CAPSULE PO (21:50)
[2022-10-09] MEDS: rOPINIRole HCL 0.25 MG TABLET PO (21:50)
[2022-10-09] MEDS: Melatonin 3 MG TABLET 6 MG PO (21:50)
[2022-10-09 23:14] VITALS: BP 123/58; PULSE 72; RESP 20; TEMP 37; O2SAT 88
[2022-10-10] VITALS (8 sets, daily range): BP systolic 102–198; BP diastolic 65–101; PULSE 61–93; RESP 16–20; TEMP 36.1–37.1; O2SAT 84–98
[2022-10-10] MEDS: FLUoxetine HCl 20 MG CAPSULE 40 MG PO (10:26)
[2022-10-10] MEDS: Sodium,Potassium Phosphates POWD.PACK 1 PACKET PO ×4 (10:26→21:29)
[2022-10-10] MEDS: Cyanocobalamin (Vitamin B-12) 1,000 MCG TABLET 1000 MCG PO (10:26)
[2022-10-10] MEDS: Apixaban 5 MG TABLET PO ×2 (10:26→21:30)
[2022-10-10] MEDS: predniSONE 20 MG TABLET 40 MG PO (10:26)
[2022-10-10] MEDS: Nystatin Powder 15 GM BOTTLE 1 APPL TOPICAL ×2 (10:26→21:32)
[2022-10-10] MEDS: Metoprolol Succinate ER 50 MG TAB.ER.24H PO (10:26)
[2022-10-10 10:39] LABS: Venous Blood Gas Refer to POC result
[2022-10-10 10:41] LABS: VBG Base Excess 31.8 mmol/L; VBG HCO3 59 mmol/L (22-26); VBG pCO2 61 mmHg; VBG pH 7.59 (7.32-7.43); VBG pO2 95 mmHg
--- NOTE | 2022-10-10 10:42 | PM.PNPUL ---
Subjective Subjective Date of Service: 10/09/22 Interval history: The patient was seen on exam. We discussion about his progressive medical issues. The nurse was also present for the meeting. Based on her discussion the patient remained clear that he is having hard time with the BiPAP therapy but also that he would like to get some therapy. The patient seemed to understand the discussion and stands the gravity of his medical condition. Although, he is struggling with the BiPAP he understands he is really the only noninvasive therapy we can provide him to avoid the. He was able to put on the BiPAP after discussion any did give a small dose of morphine which she tolerated it. Objective Data Labs CBC & Chem 7: 10/03/22 06:35 10/07/22 06:16 Labs: Laboratory Results - last 24 hr 10/10/22 10:31 VBG pH 7.59 H VBG pCO2 61 VBG pO2 95 VBG HCO3 59 H VBG O2 Saturation 99.0 VBG Base Excess 31.8 Microbiology Microbiology Results: Microbiology 10/01/22 00:46 Blood - Venous Blood Culture - Final No growth after 5 days. 10/01/22 00:28 Blood - Venous Blood Culture - Final No growth after 5 days. 10/01/22 Unknown Urine clean catch - Urine rodríguez top Urine Culture - Final Review of Systems Constitutional: Reports fatigue, Denies fever(s) and Reports weakness Eyes: Denies blurry vision Denies change in voice Cardiovascular: Denies chest pain and Reports dyspnea Respiratory: Reports cough, Reports dyspnea and Denies wheezing Gastrointestinal: Reports no additional gastrointestinal complaints Musculoskeletal: Reports limited range of motion and Reports muscle weakness Reports weakness Psychiatric: Reports depression Endocrine: Reports fatigue Hematologic/Lymphatic: Denies easy bleeding and Denies easy bruising Allergic/Immunologic: Denies wheezing Physical Exam Vital Signs: Vital Signs: Last Vital Signs Temp 98.8 F 10/10/22 08:00 Pulse 80 10/10/22 08:00 Resp 18 10/10/22 08:00 BP 178/79 H 10/10/22 08:00 Pulse Ox 92 10/10/22 08:00 O2 Del Method 10/10/22 08:00 O2 Flow Rate 3.5 10/10/22 08:00 FiO2 94 10/07/22 19:35 Oxygen Flow Rate 6 10/01/22 00:07 BMI result Body Mass Index 22.8 Const: General: awake and tired appearing Chest: Chest palpation & inspection: normal inspection of the chest Resp: Other: appears somewhat tachypnic Effort & Inspection: decreased respiratory effort, labored, tachypneic and uses accessory muscles Auscultation: diminished lung sounds Cardio: Rate: regular rate Heart sounds: S1 normal heart sound present and S2 normal heart sound present GI: Inspection: No distended Palpation (GI): Soft to palpation Neuro: Other: grossly nonfocal Extrem: General: Yes no pedal edema Procedures Date of Service Date of Service: 10/09/22 Assessment and Plan Assessment and plan (1) Acute on chronic respiratory failure with hypoxia and hypercapnia: Status: Acute (2) Muscular dystrophy: Status: Acute (3) Pneumonia: Status: Acute Plan Re-attempt BiPAP Monitor ABG/VBG Will request bipahasic ventilator when available Recommend family discussion about his goals of care Poor prognosis Time Spent With Patient Time: Total time spent is greater than 50% in coordination of care (as documented) at patient's floor/unit and/or counseling patient: Progress Note: Quality Stroke Does the patient have a stroke diagnosis?: No
--- NOTE | 2022-10-10 11:26 | PM.PNPUL ---
Subjective Subjective Date of Service: 10/10/22 Interval history: The the patient was seen on exam. He did tolerate the BiPAP around 3 hours yesterday. Primary tolerates the noninvasive ventilation when his CO2 is elevated and his low more reasonable. When he she is more awake and alert then he has more resistant to the needed medical therapy. Psychiatry is to evaluate him today. I do believe the provide him with more atypical antipsychotics specially during the daytime may be helpful in therefore not suppressing his respiratory drive with benzos or opiates. Objective Data Labs CBC & Chem 7: 10/03/22 06:35 10/07/22 06:16 Labs: Laboratory Results - last 24 hr 10/10/22 10:31 VBG pH 7.59 H VBG pCO2 61 VBG pO2 95 VBG HCO3 59 H VBG O2 Saturation 99.0 VBG Base Excess 31.8 Microbiology Microbiology Results: Microbiology 10/01/22 00:46 Blood - Venous Blood Culture - Final No growth after 5 days. 10/01/22 00:28 Blood - Venous Blood Culture - Final No growth after 5 days. 10/01/22 Unknown Urine clean catch - Urine rodríguez top Urine Culture - Final Review of Systems Constitutional: Reports fatigue, Denies fever(s) and Reports weakness Eyes: Denies blurry vision Denies change in voice Cardiovascular: Denies chest pain and Reports dyspnea Respiratory: Reports cough, Reports dyspnea and Denies wheezing Gastrointestinal: Reports no additional gastrointestinal complaints Musculoskeletal: Reports limited range of motion and Reports muscle weakness Reports weakness Psychiatric: Reports depression Endocrine: Reports fatigue Hematologic/Lymphatic: Denies easy bleeding and Denies easy bruising Allergic/Immunologic: Denies wheezing Physical Exam Vital Signs: Vital Signs: Last Vital Signs Temp 98.8 F 10/10/22 08:00 Pulse 80 10/10/22 08:00 Resp 18 10/10/22 08:00 BP 178/79 H 10/10/22 08:00 Pulse Ox 92 10/10/22 08:00 O2 Del Method 10/10/22 08:00 O2 Flow Rate 3.5 10/10/22 08:00 FiO2 94 10/07/22 19:35 Oxygen Flow Rate 6 10/01/22 00:07 BMI result Body Mass Index 22.8 Const: General: awake and tired appearing Chest: Chest palpation & inspection: normal inspection of the chest Resp: Other: appears somewhat tachypnic Effort & Inspection: decreased respiratory effort, labored, tachypneic and uses accessory muscles Auscultation: diminished lung sounds Cardio: Rate: regular rate Heart sounds: S1 normal heart sound present and S2 normal heart sound present GI: Inspection: No distended Palpation (GI): Soft to palpation Neuro: Other: grossly nonfocal Extrem: General: Yes no pedal edema Procedures Date of Service Date of Service: 10/10/22 Assessment and Plan Assessment and plan (1) Acute on chronic respiratory failure with hypoxia and hypercapnia: Status: Acute (2) Muscular dystrophy: Status: Acute (3) Pneumonia: Status: Acute Plan Re-attempt BiPAP tonight Monitor ABG/VBG in AM Will request bipahasic ventilator when available psych to evaluate, may help to have a mood stabilizer or atypical antipsychotic during the day to decrease his paronia Recommend family discussion about his goals of care Poor prognosis Time Spent With Patient Time: Total time spent is greater than 50% in coordination of care (as documented) at patient's floor/unit and/or counseling patient: Progress Note: Quality Stroke Does the patient have a stroke diagnosis?: No
--- NOTE | 2022-10-10 12:36 | P.PNIM_ITS ---
Subjective Subjective Date of Service: 10/10/22 Interval History: follow up for respiratory failure breathing is stable continues to decline bipap Review of Systems Review of Systems: Yes all other systems are reviewed and are negative Constitutional Constitutional: Denies chills and Denies fever(s) Cardiovascular Cardiovascular: Denies chest pain and Denies palpitations Respiratory Respiratory: Denies cough Gastrointestinal Gastrointestinal: Denies abdominal pain, Denies nausea and Denies vomiting Endocrine Endocrine: Denies palpitations Physical Exam Vital Signs: Vital Signs: Last Vital Signs Temp 98.1 F 10/10/22 12:00 Pulse 61 10/10/22 12:00 Resp 18 10/10/22 12:00 BP 198/65 H 10/10/22 12:00 Pulse Ox 84 L 10/10/22 12:00 O2 Del Method 10/10/22 12:00 O2 Flow Rate 2.5 10/10/22 12:00 FiO2 94 10/07/22 19:35 Oxygen Flow Rate 6 10/01/22 00:07 BMI result Body Mass Index 22.8 Appearing in no acute distress increased work of breathing lung sounds dim heart regular rate rhythm, clear S1, S2 positive bowel sounds, abdomen is soft, nontender neuro patient is alert x3, no focal deficits Objective Data Active Medications Apixaban (Apixaban 5 Mg Tablet) 5 mg PO BID [facility] Last Admin: 10/10/22 10:26 Dose: 5 mg Documented By: CLIF Azithromycin (Azithromycin 500 Mg Tablet) 500 mg PO Q24H [facility] Last Admin: 10/09/22 17:55 Dose: 500 mg Documented By: CLIF Cyanocobalamin (Cyanocobalamin (Vitamin B-12) 1,000 Mcg Tablet) 1,000 mcg PO DAILY [facility] Last Admin: 10/10/22 10:26 Dose: 1,000 mcg Documented By: CLIF Docusate Sodium (Docusate Sodium 100 Mg Capsule) 100 mg PO BID [facility] Last Admin: 10/10/22 10:25 Dose: Not Given Documented By: CLIF Non-Admin Reason: Patient Refused Fluoxetine HCl (Fluoxetine Hcl 20 Mg Capsule) 40 mg PO DAILY [facility] Last Admin: 10/10/22 10:26 Dose: 40 mg Documented By: CLIF Hydroxyzine HCl (Hydroxyzine Hcl 50 Mg Tablet) 50 mg PO Q6H PRN PRN Reason: anxiety Last Admin: 10/08/22 11:05 Dose: 50 mg Documented By: MAGALIS Loperamide HCl (Loperamide Hcl 2 Mg Capsule) 2 mg PO TID PRN PRN Reason: Diarrhea Last Admin: 10/04/22 08:33 Dose: 2 mg Documented By: MINARIVCASTILLO Melatonin (Melatonin 3 Mg Tablet) 6 mg PO BEDTIME [facility] Last Admin: 10/09/22 21:50 Dose: 6 mg Documented By: ROGE Metoprolol Succinate (Metoprolol Succinate Er 50 Mg Tab.Er.24h) 50 mg PO DAILY [facility]; Protocol Last Admin: 10/10/22 10:26 Dose: 50 mg Documented By: CLIF Nystatin (Nystatin Powder 15 Gm Bottle) 1 appl TOPICAL BID [facility]; Protocol Last Admin: 10/10/22 10:26 Dose: 1 appl Documented By: CLIF Olanzapine (Olanzapine 5 Mg Tablet) 5 mg PO BEDTIME [facility] Last Admin: 10/09/22 21:50 Dose: 5 mg Documented By: ROGE Potassium Phos/Sodium Phos (Sodium,Potassium Phosphates Powd.Pack) 1 packet PO QID [facility] Last Admin: 10/10/22 10:26 Dose: 1 packet Documented By: CLIF Prednisone (Prednisone 20 Mg Tablet) 40 mg PO DAILY [facility] Last Admin: 10/10/22 10:26 Dose: 40 mg Documented By: CLIF Ropinirole HCl (Ropinirole Hcl 0.25 Mg Tablet) 0.25 mg PO BEDTIME [facility] Last Admin: 10/09/22 21:50 Dose: 0.25 mg Documented By: ROGE Labs CBC & Chem 7: 10/03/22 06:35 10/07/22 06:16 Labs: Laboratory Results - last 24 hr 10/10/22 10:31 VBG pH 7.59 H VBG pCO2 61 VBG pO2 95 VBG HCO3 59 H VBG O2 Saturation 99.0 VBG Base Excess 31.8 Assessment and Plan (1) Acute on chronic respiratory failure with hypoxia and hypercapnia: Status: Acute (2) MDD (major depressive disorder), recurrent episode, moderate: Status: Acute Plan 67-year-old man admitted from long term facility with complaints of dyspnea, patient noted to be hypoxic and hypercapnic requiring BiPAP support. Patient admitted to ICU initially and titrated off BiPAP to supplemental oxygen. Transferred to medical floor on 10/01/2022 Hypertension with elevated blood pressure reading One dose of hydralazine continue metoprolol Acute hypoxemic/ hypercarbic respiratory failure secondary to COPD exacerbation, progressive MD Still sob ,work of breathing seems slightly improving pulm eval noted - continue nebs, oxygen, steroids, antibiotics Continue as needed BiPAP, although he is declining, discussed with i ntensivist/pulm, if can't tolerate bipap may need trach vs biphasic ventilater as he is oxygen dependent and his muscular dystrophy is progressing Bradycardia episode. One episode no further episodes noted TSH normal, currently in sinus rhythm history of Atrial fibrillation, unspecified continue Eliquis, metoprolol. UTI follow urine cultures -mix completed course of abx Bipolar disorder home meds, prn hydraoxizine used in icu. Dementia/frontotemproal dementia continue supportive care ,home meds added. intermittent refusing treatment added p.r.n. Atarax Psych consult for capacity Muscular dystrophy supportive care Oxygen dependent DVT prophylaxis with [facility] Attending Dr. Christensen need to discuss possibility of a trach with family inpatient need:acute hypoxemic/ hypercarbic respiratory failure secondary to COPD exacerbation ? Quality Stroke Does the patient have a stroke diagnosis?: No VTE Prior VTE?: No VTE Risk Level:: Medical - moderate - high VTE Device Contraindication: N/A - Device Ordered VTE Drug Contraindication: N/A - Med Ordered
[2022-10-10] MEDS: hydrALAZINE HCl 20 MG/ML VIAL 5 MG IVPUSH (12:55)
[2022-10-10] MEDS: Azithromycin 500 MG TABLET PO (17:45)
[2022-10-10] MEDS: OLANZapine 5 MG TABLET PO (21:30)
[2022-10-10] MEDS: rOPINIRole HCL 0.25 MG TABLET PO (21:30)
[2022-10-10] MEDS: Melatonin 3 MG TABLET 6 MG PO (21:30)
[2022-10-11] VITALS (7 sets, daily range): BP systolic 118–168; BP diastolic 63–93; PULSE 56–89; RESP 15–20; TEMP 36.2–37; O2SAT 93–100; BMI 22.4
[2022-10-11] MEDS: Apixaban 5 MG TABLET PO ×2 (08:29→20:48)
[2022-10-11] MEDS: predniSONE 20 MG TABLET 40 MG PO (08:29)
[2022-10-11] MEDS: FLUoxetine HCl 20 MG CAPSULE 40 MG PO (08:29)
[2022-10-11] MEDS: Sodium,Potassium Phosphates POWD.PACK 1 PACKET PO ×4 (08:29→20:46)
[2022-10-11] MEDS: Cyanocobalamin (Vitamin B-12) 1,000 MCG TABLET 1000 MCG PO (08:29)
[2022-10-11] MEDS: Metoprolol Succinate ER 50 MG TAB.ER.24H PO (08:29)
[2022-10-11] MEDS: Nystatin Powder 15 GM BOTTLE 1 APPL TOPICAL ×2 (08:30→20:50)
[2022-10-11 09:09] LABS: VBG HCO3 64 mmol/L (22-26); VBG pCO2 108 mmHg; VBG pH 7.38 (7.32-7.43); VBG pO2 33 mmHg
[2022-10-11 09:41] LABS: Venous Blood Gas Refer to POC result
--- NOTE | 2022-10-11 09:53 | HO.PM.IMPN ---
Subjective Subjective Date of Service: 10/11/22 Interval History: Follow up for respiratory failure breathing is stable continues to decline bipap Review of Systems Review of Systems: Yes all other systems are reviewed and are negative Constitutional Constitutional: Denies chills and Denies fever(s) Cardiovascular Cardiovascular: Denies chest pain and Denies palpitations Respiratory Respiratory: Denies cough Gastrointestinal Gastrointestinal: Denies abdominal pain, Denies nausea and Denies vomiting Endocrine Endocrine: Denies palpitations Physical Exam Vital Signs: Vital Signs: Last Vital Signs Temp 97.5 F 10/11/22 07:49 Pulse 68 10/11/22 07:49 Resp 18 10/11/22 07:49 BP 150/82 H 10/11/22 07:49 Pulse Ox 94 10/11/22 07:49 O2 Del Method 10/11/22 07:49 O2 Flow Rate 2 10/11/22 07:49 FiO2 94 10/07/22 19:35 Oxygen Flow Rate 6 10/01/22 00:07 BMI result Body Mass Index 22.4 Appearing in no acute distress lung sounds are clear to auscultation heart regular rate rhythm, clear S1, S2 positive bowel sounds, abdomen is soft, nontender neuro patient is alert x3, no focal deficits Objective Data Active Medications Apixaban (Apixaban 5 Mg Tablet) 5 mg PO BID [facility] Last Admin: 10/11/22 08:29 Dose: 5 mg Documented By: MAGALIS Azithromycin (Azithromycin 500 Mg Tablet) 500 mg PO Q24H [facility] Last Admin: 10/10/22 17:45 Dose: 500 mg Documented By: CLIF Cyanocobalamin (Cyanocobalamin (Vitamin B-12) 1,000 Mcg Tablet) 1,000 mcg PO DAILY [facility] Last Admin: 10/11/22 08:29 Dose: 1,000 mcg Documented By: MAGALIS Docusate Sodium (Docusate Sodium 100 Mg Capsule) 100 mg PO BID [facility] Last Admin: 10/11/22 08:29 Dose: Not Given Documented By: MAGALIS Non-Admin Reason: Patient Refused Fluoxetine HCl (Fluoxetine Hcl 20 Mg Capsule) 40 mg PO DAILY [facility] Last Admin: 10/11/22 08:29 Dose: 40 mg Documented By: MAGALIS Hydroxyzine HCl (Hydroxyzine Hcl 50 Mg Tablet) 50 mg PO Q6H PRN PRN Reason: anxiety Last Admin: 10/08/22 11:05 Dose: 50 mg Documented By: MAGALIS Loperamide HCl (Loperamide Hcl 2 Mg Capsule) 2 mg PO TID PRN PRN Reason: Diarrhea Last Admin: 10/04/22 08:33 Dose: 2 mg Documented By: CAMILLE Melatonin (Melatonin 3 Mg Tablet) 6 mg PO BEDTIME [facility] Last Admin: 10/10/22 21:30 Dose: 6 mg Documented By: KENDALL Metoprolol Succinate (Metoprolol Succinate Er 50 Mg Tab.Er.24h) 50 mg PO DAILY [facility]; Protocol Last Admin: 10/11/22 08:29 Dose: 50 mg Documented By: MAGALIS Nystatin (Nystatin Powder 15 Gm Bottle) 1 appl TOPICAL BID [facility]; Protocol Last Admin: 10/11/22 08:30 Dose: 1 appl Documented By: MAGALIS Olanzapine (Olanzapine 5 Mg Tablet) 5 mg PO BEDTIME [facility] Last Admin: 10/10/22 21:30 Dose: 5 mg Documented By: KENDALL Potassium Phos/Sodium Phos (Sodium,Potassium Phosphates Powd.Pack) 1 packet PO QID [facility] Last Admin: 10/11/22 08:29 Dose: 1 packet Documented By: MAGALIS Prednisone (Prednisone 20 Mg Tablet) 40 mg PO DAILY [facility] Last Admin: 10/11/22 08:29 Dose: 40 mg Documented By: MAGALIS Ropinirole HCl (Ropinirole Hcl 0.25 Mg Tablet) 0.25 mg PO BEDTIME [facility] Last Admin: 10/10/22 21:30 Dose: 0.25 mg Documented By: KENDALL Labs CBC & Chem 7: 10/03/22 06:35 10/07/22 06:16 Labs: Laboratory Results - last 24 hr 10/10/22 10/11/22 10:31 08:49 VBG pH 7.59 H 7.38 VBG pCO2 61 108 VBG pO2 95 33 VBG HCO3 59 H 64 H VBG O2 Saturation 99.0 43.0 VBG Base Excess 31.8 30.0 Assessment and Plan (1) Acute on chronic respiratory failure with hypoxia and hypercapnia: Status: Acute (2) MDD (major depressive disorder), recurrent episode, moderate: Status: Acute Plan 67-year-old man admitted from alf facility with complaints of dyspnea, patient noted to be hypoxic and hypercapnic requiring BiPAP support. Patient admitted to ICU initially and titrated off BiPAP to supplemental oxygen. Transferred to medical floor on 10/01/2022 Hypertension with elevated blood pressure reading. improving One dose of hydralazine continue metoprolol Acute hypoxemic/ hypercarbic respiratory failure secondary to COPD exacerbation, progressive MD Still sob ,work of breathing seems slightly improving pulm link noted - continue nebs, oxygen, steroids, antibiotics Continue as needed BiPAP, although he is declining, discussed with double end tenoner operator/pulm, if can't tolerate bipap may need trach vs biphasic cuirass ventilater as he is oxygen dependent and his muscular dystrophy is progressing Bradycardia episode. One episode no further episodes noted TSH normal, currently in sinus rhythm history of Atrial fibrillation, unspecified continue Eliquis, metoprolol. UTI follow urine cultures -mix completed course of abx Bipolar disorder home meds, prn hydraoxizine used in icu. Dementia/frontotemproal dementia continue supportive care ,home meds added. intermittent refusing treatment added p.r.n. Atarax Psych consult for capacity Muscular dystrophy supportive care Oxygen dependent DVT prophylaxis with [facility] Attending Dr. Blackman Patient is decling bipap and the possibility of biphasic vent, capacity evaluation pending inpatient need:acute hypoxemic/ hypercarbic respiratory failure secondary to COPD exacerbation ? Quality Stroke Does the patient have a stroke diagnosis?: No VTE Prior VTE?: No VTE Risk Level:: Medical - moderate - high VTE Device Contraindication: N/A - Device Ordered VTE Drug Contraindication: N/A - Med Ordered
--- NOTE | 2022-10-11 12:57 | MHC.CM.PN ---
Per ROUNDS discussion, Patient to be evaluated by Psych for capacity. Patient is from [facility] and he wishes to return there once medically cleared for dc. CM will follow.
--- NOTE | 2022-10-11 13:53 | PC.RT ---
attempted to place pt on bipap and he refused. RT explained the importance of bipap and reasoning why he would benefit from using NIV but pt still refused at this time
--- NOTE | 2022-10-11 14:36 | PM.PSYCN ---
History of Present Illness Date of Service: 10/11/2022 Chief Complaint: Acute resp failure Reason for Consult: capacity Requesting physician: Adamaris Herrera Discussed with referring provider: Yes Sources of Information: patient interviewed, chart reviewed and crisis/core team assessment reviewed HPI Narrative: Mr. Contreras is a 67 year-old male with hx of chronic on acute respiratory failure, muscular atrophy who has been consistently declining treatment for bipap. Pt seen by Jocelin Hebert, consulting psychiatrist in the past. This consult is to assessed current capacity to make medical decisions. Pt in bed, in some respiratory discomfort. Pt reports feeling tired. Whe asked about reasons for declining bipap, but accepting all other treatments (nasal canula, medical medications and medications for depression). 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 After several prompting as story did no make any sense and when asked how is this story related to him declining to use bipap, pt states oh yes, assistant men's soccer coach was not afraid to fly. When asked directly if he wants to , he quickly states no! It was evident that further questions, took a lot for him to answer and these answer were not coherent. Pt appears to have hypercarbia and some increase confusion related to this. [facility] Medical History (Updated 10/06/22 @ 16:16 by Willy Dowling MD) Acute on chronic respiratory failure with hypoxia and hypercapnia Atrial fibrillation Bipolar disorder COPD (chronic obstructive pulmonary disease) Dementia Hypertension Muscular dystrophy Oxygen dependent Respiratory failure with hypercapnia Diagnostics Vital Signs (24Hr): Vital Signs - 24 hr 10/10/22 20:00 10/11/22 00:00 10/11/22 03:19 Temperature 98.3 F 97.8 F 97.4 F Pulse Rate 72 86 56 Respiratory Rate 17 17 18 Blood Pressure 102/95 H 137/93 H 154/70 H Pulse Oximetry 90 L 93 100 Oxygen Delivery Method Nasal Cannula Nasal Cannula Nasal Cannula Oxygen Flow Rate 2 10/11/22 07:49 10/11/22 11:20 10/11/22 15:40 Temperature 97.5 F 98.5 F 98.6 F Pulse Rate 68 68 89 Respiratory Rate 18 20 18 Blood Pressure 150/82 H 138/68 168/88 H Pulse Oximetry 94 100 95 Oxygen Delivery Method Nasal Cannula Nasal Cannula Nasal Cannula Oxygen Flow Rate 2 4 2 BMI result Body Mass Index 22.4 Labs Results: 10/03/22 06:35 10/07/22 06:16 Labs: Laboratory Results - last 48 hr 10/10/22 10/11/22 10:31 08:49 VBG pH 7.59 H 7.38 VBG pCO2 61 108 VBG pO2 95 33 VBG HCO3 59 H 64 H VBG O2 Saturation 99.0 43.0 VBG Base Excess 31.8 30.0 Imaging Radiology Impressions: ITS Impressions Chest X-Ray 10/01/22 00:36 IMPRESSION: Equivocal bibasilar airspace opacities, greater on the right side with possible small amount of right-sided pleural fluid. In view of limitations of the study, recommend a repeat imaging with also correlation with a lateral chest radiograph. Abdomen/Pelvis CT 10/01/22 03:46 IMPRESSION: 1. A 4 mm calculus at the right ureterovesical junction produces mild right hydroureteronephrosis. An additional 1 mm calculus is present in the right distal ureter. 2. Multiple additional punctate calculi in the right renal collecting system. 3. Thick-walled bladder with surrounding fat stranding, potentially due to chronic bladder outlet obstruction or cystitis. Borderline prostatomegaly 4. Partial collapse of the left lower lobe, partial collapse of the right lower lobe, and additional atelectasis in the upper lobes. 5. Osteoarthritis in the hips. No acute osseous findings. Fleischner guidelines were followed. Chest CT 10/01/22 03:46 IMPRESSION: 1. Multifocal atelectasis in the lungs with collapse of the right middle and left lower lobes as well as partial collapse of the right lower lobe and subsegmental atelectasis in the upper lobes.. Superimposed consolidation is possible, though not discretely seen. 2. Elevation of the right hemidiaphragm. Fleischner guidelines were followed. Head CT 10/01/22 03:46 IMPRESSION: No acute intracranial pathology. Bilateral mastoid effusions. This may be asymptomatic, though consider correlation for clinical findings of mastoiditis. Chest X-Ray 10/05/22 09:18 IMPRESSION: Small to moderate pleural effusion represents interval increase from the previous study. Mental Status Exam Mental Status Exam Narrative: Appearance: thin, wearing hospital gown in some respiratory distress Behavior: cooperative Speech: significant delayed in response, suspect this related to respiratory distress, spontaneous TP: disorganized with derailment TC: wanting to go back to facility he was in SI: denies HI: none AH/VH: no signs Delusions: none Insight/judgment: appear impaired at this point. Cog: oriented to place, month, year, but some confusion about his current health status and fact that he is not ready to return. Medications Medications Current Medications Apixaban (Apixaban 5 Mg Tablet) 5 mg PO BID [facility] Last Admin: 10/11/22 08:29 Dose: 5 mg Azithromycin (Azithromycin 500 Mg Tablet) 500 mg PO Q24H [facility] Last Admin: 10/10/22 17:45 Dose: 500 mg Cyanocobalamin (Cyanocobalamin (Vitamin B-12) 1,000 Mcg Tablet) 1,000 mcg PO DAILY [facility] Last Admin: 10/11/22 08:29 Dose: 1,000 mcg Docusate Sodium (Docusate Sodium 100 Mg Capsule) 100 mg PO BID [facility] Last Admin: 10/11/22 08:29 Dose: Not Given Fluoxetine HCl (Fluoxetine Hcl 20 Mg Capsule) 40 mg PO DAILY [facility] Last Admin: 10/11/22 08:29 Dose: 40 mg Hydroxyzine HCl (Hydroxyzine Hcl 50 Mg Tablet) 50 mg PO Q6H PRN PRN Reason: anxiety Last Admin: 10/08/22 11:05 Dose: 50 mg Loperamide HCl (Loperamide Hcl 2 Mg Capsule) 2 mg PO TID PRN PRN Reason: Diarrhea Last Admin: 10/04/22 08:33 Dose: 2 mg Melatonin (Melatonin 3 Mg Tablet) 6 mg PO BEDTIME [facility] Last Admin: 10/10/22 21:30 Dose: 6 mg Metoprolol Succinate (Metoprolol Succinate Er 50 Mg Tab.Er.24h) 50 mg PO DAILY [facility]; Protocol Last Admin: 10/11/22 08:29 Dose: 50 mg Nystatin (Nystatin Powder 15 Gm Bottle) 1 appl TOPICAL BID [facility]; Protocol Last Admin: 10/11/22 08:30 Dose: 1 appl Olanzapine (Olanzapine 5 Mg Tablet) 5 mg PO BEDTIME [facility] Last Admin: 10/10/22 21:30 Dose: 5 mg Potassium Phos/Sodium Phos (Sodium,Potassium Phosphates Powd.Pack) 1 packet PO QID [facility] Last Admin: 10/11/22 12:16 Dose: 1 packet Prednisone (Prednisone 20 Mg Tablet) 40 mg PO DAILY [facility] Last Admin: 10/11/22 08:29 Dose: 40 mg Ropinirole HCl (Ropinirole Hcl 0.25 Mg Tablet) 0.25 mg PO BEDTIME [facility] Last Admin: 10/10/22 21:30 Dose: 0.25 mg Allergies Allergies Allergy/AdvReac Type Severity Reaction Status Date / Time No Known Allergies Allergy Verified 10/01/22 00:06 Assessment & Plan Assessment & Plan (1) Acute on chronic respiratory failure with hypoxia and hypercapnia: Status: Acute Code(s): J96.21 - Acute and chronic respiratory failure with hypoxia; J96.22 - Acute and chronic respiratory failure with hypercapnia Plan Mr. Randall is a 67 year-old male with hx of muscular dystrophy, chronic on acute respiratory failure. Assessed today for capacity. Pt does not appear at this moment to capacity to make medical conditions as he is not able not show understanding and appreciation of risks versus benefits. I spent minutes with the patient and/or on the patient floor today, greater than?50% of which was spent counseling/coordinating care.
[2022-10-11] MEDS: Azithromycin 500 MG TABLET PO (17:19)
[2022-10-11] MEDS: rOPINIRole HCL 0.25 MG TABLET PO (20:48)
[2022-10-11] MEDS: OLANZapine 5 MG TABLET PO (20:48)
[2022-10-11] MEDS: Melatonin 3 MG TABLET 6 MG PO (22:29)
[2022-10-11] MEDS: hydrOXYzine HCL 50 MG TABLET PO (22:30)
[2022-10-12 02:25] VITALS: BP 123/65; PULSE 65; RESP 16; TEMP 36.6; O2SAT 95
[2022-10-12 06:00] VITALS: BMI 22.4
[2022-10-12 07:54] VITALS: BP 136/64; PULSE 66; RESP 16; TEMP 36.5; O2SAT 92
[2022-10-12 08:35] LABS: MANUAL DIFF FLAG NO
[2022-10-12 08:37] LABS: Venous Blood Gas Refer to POC result
[2022-10-12 08:38] LABS: VBG Base Excess 33.1 mmol/L; VBG HCO3 67 mmol/L (22-26); VBG pCO2 109 mmHg; VBG pH 7.39 (7.32-7.43); VBG pO2 63 mmHg
[2022-10-12 08:39] LABS: Basophils Percent Auto 0.2 % (0-2); Eosinophils Absolute Auto 0.1 X10*3/uL (0.0-0.4); Eosinophils Percent Auto 1.3 % (0-4); Hematocrit 45.4 % (42.0-52.0); Hemoglobin 13.9 g/dl (14.0-18.0); Imm Gran Abs Auto 0.06 X10*3/uL (0.00-0.03); Imm Gran Pct Auto 0.5 % (0.0-0.4); Lymphocytes Absolute Auto 1.3 X10*3/uL (1.2-4.9); Lymphocytes Percent Auto 11.7 % (20-40); Mean Corpuscular HGB Conc 30.6 g/dl (31.0-36.0); Mean Corpuscular Hemoglobin 31.5 pg (27.0-33.0); Mean Corpuscular Volume 102.9 fL (80.0-98.0); Monocytes Absolute Auto 0.7 X10*3/uL (0.1-1.2); Monocytes Percent Auto 6.6 % (2-11); Neutrophils Absolute Auto 8.8 x10*3/uL (2.0-8.3); Neutrophils Percent Auto 79.7 % (45-73); Platelet Count 260 X10*3/uL (160-400); Red Blood Count 4.41 X10*6/uL (4.60-5.80); Red Cell Distribution Width 12.3 % (11.0-16.0)
[2022-10-12 09:01] LABS: Blood Urea Nitrogen 17 mg/dL (9-16); Calcium 8.8 mg/dL (8.4-10.2); Creatinine Clr Calc Pharmacy 134.6; Estimated Glomerular Filt Rate > 60; Glucose Random 160 mg/dL (60-115)
[2022-10-12] MEDS: FLUoxetine HCl 20 MG CAPSULE 40 MG PO (09:40)
[2022-10-12] MEDS: Apixaban 5 MG TABLET PO ×2 (09:40→20:30)
[2022-10-12] MEDS: predniSONE 10 MG TABLET 30 MG PO (09:40)
[2022-10-12] MEDS: Metoprolol Succinate ER 50 MG TAB.ER.24H PO (09:40)
[2022-10-12] MEDS: Sodium,Potassium Phosphates POWD.PACK 1 PACKET PO ×4 (09:41→22:30)
[2022-10-12] MEDS: Cyanocobalamin (Vitamin B-12) 1,000 MCG TABLET 1000 MCG PO (09:41)
[2022-10-12 10:07] LABS: Potassium 4.1 mmol/L (3.3-5.1)
[2022-10-12 10:28] LABS: Anion Gap 18 (12-20); Carbon Dioxide 48 mmol/L (22-29); Chloride 84 mmol/L (96-108); Sodium 146 mmol/L (135-145)
[2022-10-12 12:00] VITALS: BP 123/62; PULSE 61; RESP 16; TEMP 36.5; O2SAT 99
--- NOTE | 2022-10-12 12:56 | P.PNIM_ITS ---
Subjective Subjective Date of Service: 10/12/22 Interval History: Follow up for respiratory failure breathing is stable continues to decline bipap Review of Systems Review of Systems: Yes all other systems are reviewed and are negative Constitutional Constitutional: Denies chills and Denies fever(s) Cardiovascular Cardiovascular: Denies chest pain and Denies palpitations Respiratory Respiratory: Denies cough Gastrointestinal Gastrointestinal: Denies abdominal pain, Denies nausea and Denies vomiting Endocrine Endocrine: Denies palpitations Physical Exam Vital Signs: Vital Signs: Last Vital Signs Temp 97.7 F 10/12/22 12:00 Pulse 61 10/12/22 12:00 Resp 16 10/12/22 12:00 BP 123/62 10/12/22 12:00 Pulse Ox 99 10/12/22 12:00 O2 Del Method 10/12/22 12:00 O2 Flow Rate 2 10/12/22 07:54 FiO2 94 10/07/22 19:35 Oxygen Flow Rate 6 10/01/22 00:07 BMI result Body Mass Index 22.4 Appearing in no acute distress lung sounds are clear to auscultation heart regular rate rhythm, clear S1, S2 positive bowel sounds, abdomen is soft, nontender neuro patient is alert x3, no focal deficits Objective Data Active Medications Apixaban (Apixaban 5 Mg Tablet) 5 mg PO BID [facility] Last Admin: 10/12/22 09:40 Dose: 5 mg Documented By: NAOMI Cyanocobalamin (Cyanocobalamin (Vitamin B-12) 1,000 Mcg Tablet) 1,000 mcg PO DAILY [facility] Last Admin: 10/12/22 09:41 Dose: 1,000 mcg Documented By: NAOMI Docusate Sodium (Docusate Sodium 100 Mg Capsule) 100 mg PO BID [facility] Last Admin: 10/12/22 09:41 Dose: Not Given Documented By: NAOMI Non-Admin Reason: Patient Refused Fluoxetine HCl (Fluoxetine Hcl 20 Mg Capsule) 40 mg PO DAILY [facility] Last Admin: 10/12/22 09:40 Dose: 40 mg Documented By: NAOMI Hydroxyzine HCl (Hydroxyzine Hcl 50 Mg Tablet) 50 mg PO Q6H PRN PRN Reason: anxiety Last Admin: 10/11/22 22:30 Dose: 50 mg Documented By: HALIMA Loperamide HCl (Loperamide Hcl 2 Mg Capsule) 2 mg PO TID PRN PRN Reason: Diarrhea Last Admin: 10/04/22 08:33 Dose: 2 mg Documented By: JORGE-RIVLA Melatonin (Melatonin 3 Mg Tablet) 6 mg PO BEDTIME [facility] Last Admin: 10/11/22 22:29 Dose: 6 mg Documented By: HALIMA Metoprolol Succinate (Metoprolol Succinate Er 50 Mg Tab.Er.24h) 50 mg PO DAILY [facility]; Protocol Last Admin: 10/12/22 09:40 Dose: 50 mg Documented By: NAOMI Nystatin (Nystatin Powder 15 Gm Bottle) 1 appl TOPICAL BID [facility]; Protocol Last Admin: 10/11/22 20:50 Dose: 1 appl Documented By: HALIMA Olanzapine (Olanzapine 5 Mg Tablet) 5 mg PO BEDTIME [facility] Last Admin: 10/11/22 20:48 Dose: 5 mg Documented By: HALIMA Potassium Phos/Sodium Phos (Sodium,Potassium Phosphates Powd.Pack) 1 packet PO QID [facility] Last Admin: 10/12/22 09:41 Dose: 1 packet Documented By: NAOMI Prednisone (Prednisone 10 Mg Tablet) 30 mg PO DAILY [facility] Last Admin: 10/12/22 09:40 Dose: 30 mg Documented By: NAOMI Ropinirole HCl (Ropinirole Hcl 0.25 Mg Tablet) 0.25 mg PO BEDTIME [facility] Last Admin: 10/11/22 20:48 Dose: 0.25 mg Documented By: HALIMA Labs CBC & Chem 7: 10/12/22 08:24 10/12/22 08:24 Labs: Laboratory Results - last 24 hr 10/12/22 10/12/22 10/12/22 08:24 08:24 08:32 MCV 102.9 H MCH 31.5 MCHC 30.6 L RDW 12.3 Plt Count 260 MPV 9.0 L Immature Gran % (Auto) 0.5 H Neut % (Auto) 79.7 H Lymph % (Auto) 11.7 L Hopkins % (Auto) 6.6 Eos % (Auto) 1.3 Baso % (Auto) 0.2 Lymph # (Auto) 1.3 Hopkins # (Auto) 0.7 Eos # (Auto) 0.1 Baso # (Auto) 0.0 Abs Immat Gran (auto) 0.06 H Absolute Neuts (auto) 8.8 H Absolute Nucleated RBC 0.000 Nucleated RBC % (auto) 0.0 VBG pH 7.39 VBG pCO2 109 VBG pO2 63 VBG HCO3 67 H VBG O2 Saturation 88.0 VBG Base Excess 33.1 Anion Gap 18 Estim Creat Clear Calc 134.6 Estimated GFR > 60 Random Glucose 160 H Calcium 8.8 Assessment and Plan (1) Acute on chronic respiratory failure with hypoxia and hypercapnia: Status: Acute (2) MDD (major depressive disorder), recurrent episode, moderate: Status: Acute Plan 67-year-old man admitted from senior care facility with complaints of dyspn ea, patient noted to be hypoxic and hypercapnic requiring BiPAP support. Patient admitted to ICU initially and titrated off BiPAP to supplemental oxygen. Transferred to medical floor on 10/01/2022 Hypertension with elevated blood pressure reading. improving One dose of hydralazine continue metoprolol Acute hypoxemic/ hypercarbic respiratory failure secondary to COPD exacerbation, progressive MD Still sob ,work of breathing seems slightly improving pulm eval noted - continue nebs, oxygen, steroids, antibiotics Continue as needed BiPAP, although he is declining, discussed with fringe maker /pulm, if can't tolerate bipap may need trach vs biphasic cuirass ventilater as he is oxygen dependent and his muscular dystrophy is progressing Bradycardia episode. One episode no further episodes noted TSH normal, currently in sinus rhythm history of Atrial fibrillation, unspecified continue Eliquis, metoprolol. UTI follow urine cultures -mix completed course of abx Bipolar disorder home meds, prn hydraoxizine used in icu. Dementia/frontotemproal dementia continue supportive care ,home meds added. intermittent refusing treatment added p.r.n. Atarax deemed No capacity by consulting psychologist Muscular dystrophy supportive care Oxygen dependent DVT prophylaxis with [facility] Attending Dr. Blackman Patient is decling bipap and the possibility of biphasic vent. Discussed with sister Anay [phone] inpatient need:acute hypoxemic/ hypercarbic respiratory failure secondary to COPD exacerbation ? Quality Stroke Does the patient have a stroke diagnosis?: No VTE Prior VTE?: No VTE Risk Level:: Medical - moderate - high VTE Device Contraindication: N/A - Device Ordered VTE Drug Contraindication: N/A - Med Ordered
--- NOTE | 2022-10-12 13:17 | MHC.CM.PN ---
CM met with Patient at bed side to discuss Patient's wishes and dc planning. Patient did confirm that he is interested in Hospice. When CM asked Patient to explain what Hospice means to him he stated, it is not necessarily for people who are dying right away, but for people who are interested in being comfortable. When CM asked Patient if it was his wish to return to [facility], he stated, you need to understand that is my home and those people are my friends and family. CAMDEN has relayed the content of this conversation to [employer]/Adamaris and CM will follow.
[2022-10-12] MEDS: Nystatin Powder 15 GM BOTTLE 1 APPL TOPICAL (14:21)
[2022-10-12 15:17] VITALS: BP 127/61; PULSE 68; RESP 15; TEMP 36.5; O2SAT 97
[2022-10-12 20:00] VITALS: BP 144/74; PULSE 73; RESP 20; TEMP 36.9; O2SAT 95
[2022-10-12] MEDS: Melatonin 3 MG TABLET 6 MG PO (20:30)
[2022-10-12] MEDS: rOPINIRole HCL 0.25 MG TABLET PO (20:30)
[2022-10-12] MEDS: OLANZapine 5 MG TABLET PO (20:30)
[2022-10-13] VITALS: BP 124/70; PULSE 63; RESP 20; TEMP 36.6; O2SAT 97
[2022-10-13 07:55] VITALS: BP 135/68; PULSE 70; RESP 20; TEMP 36.8; O2SAT 97
--- NOTE | 2022-10-13 09:39 | HO.PM.IMPN ---
Subjective Subjective Date of Service: 10/13/22 Interval History: Follow up for respiratory failure breathing is stable continues to decline bipap Review of Systems Review of Systems: Yes all other systems are reviewed and are negative Constitutional Constitutional: Denies chills and Denies fever(s) Cardiovascular Cardiovascular: Denies chest pain and Denies palpitations Respiratory Respiratory: Denies cough Gastrointestinal Gastrointestinal: Denies abdominal pain, Denies nausea and Denies vomiting Endocrine Endocrine: Denies palpitations Physical Exam Vital Signs: Vital Signs: Last Vital Signs Temp 98.2 F 10/13/22 07:55 Pulse 70 10/13/22 07:55 Resp 20 10/13/22 07:55 BP 135/68 10/13/22 07:55 Pulse Ox 97 10/13/22 07:55 O2 Del Method 10/13/22 07:55 O2 Flow Rate 2 10/13/22 07:55 FiO2 94 10/07/22 19:35 Oxygen Flow Rate 6 10/01/22 00:07 BMI result Body Mass Index 22.4 Appearing in no acute distress lung sounds are clear to auscultation heart regular rate rhythm, clear S1, S2 positive bowel sounds, abdomen is soft, nontender neuro patient is alert x3, no focal deficits Objective Data Active Medications Apixaban (Apixaban 5 Mg Tablet) 5 mg PO BID [facility] Last Admin: 10/12/22 20:30 Dose: 5 mg Documented By: RAJAN Cyanocobalamin (Cyanocobalamin (Vitamin B-12) 1,000 Mcg Tablet) 1,000 mcg PO DAILY [facility] Last Admin: 10/12/22 09:41 Dose: 1,000 mcg Documented By: NAOMI Docusate Sodium (Docusate Sodium 100 Mg Capsule) 100 mg PO BID [facility] Last Admin: 10/12/22 20:30 Dose: Not Given Documented By: RAJAN Non-Admin Reason: Patient Refused Fluoxetine HCl (Fluoxetine Hcl 20 Mg Capsule) 40 mg PO DAILY [facility] Last Admin: 10/12/22 09:40 Dose: 40 mg Documented By: NAOMI Hydroxyzine HCl (Hydroxyzine Hcl 50 Mg Tablet) 50 mg PO Q6H PRN PRN Reason: anxiety Last Admin: 10/11/22 22:30 Dose: 50 mg Documented By: HALIMA Loperamide HCl (Loperamide Hcl 2 Mg Capsule) 2 mg PO TID PRN PRN Reason: Diarrhea Last Admin: 10/04/22 08:33 Dose: 2 mg Documented By: JORGE-JORGE Melatonin (Melatonin 3 Mg Tablet) 6 mg PO BEDTIME [facility] Last Admin: 10/12/22 20:30 Dose: 6 mg Documented By: RAJAN Metoprolol Succinate (Metoprolol Succinate Er 50 Mg Tab.Er.24h) 50 mg PO DAILY [facility]; Protocol Last Admin: 10/12/22 09:40 Dose: 50 mg Documented By: NAOMI Nystatin (Nystatin Powder 15 Gm Bottle) 1 appl TOPICAL BID MICHAEL; Protocol Last Admin: 10/12/22 20:32 Dose: Not Given Documented By: RAJAN Non-Admin Reason: Patient Refused Olanzapine (Olanzapine 5 Mg Tablet) 5 mg PO BEDTIME [facility] Last Admin: 10/12/22 20:30 Dose: 5 mg Documented By: RAJAN Potassium Phos/Sodium Phos (Sodium,Potassium Phosphates Powd.Pack) 1 packet PO QID [facility] Last Admin: 10/12/22 22:30 Dose: 1 packet Documented By: RAJAN Prednisone (Prednisone 10 Mg Tablet) 30 mg PO DAILY [facility] Last Admin: 10/12/22 09:40 Dose: 30 mg Documented By: NAOMI Ropinirole HCl (Ropinirole Hcl 0.25 Mg Tablet) 0.25 mg PO BEDTIME [facility] Last Admin: 10/12/22 20:30 Dose: 0.25 mg Documented By: RAJAN Labs CBC & Chem 7: 10/12/22 08:24 10/12/22 08:24 Labs: Laboratory Results - last 24 hr 10/12/22 08:24 Anion Gap 18 Assessment and Plan (1) Acute on chronic respiratory failure with hypoxia and hypercapnia: Status: Acute (2) MDD (major depressive disorder), recurrent episode, moderate: Status: Acute Plan 67-year-old man admitted from intermediate facility with complaints of dyspnea, patient noted to be hypoxic and hypercapnic requiring BiPAP support. Patient admitted to ICU initially and titrated off BiPAP to supplemental oxygen. Transferred to medical floor on 10/01/2022 Hypertension with elevated blood pressure reading. Resolved One dose of hydralazine continue metoprolol Acute hypoxemic/ hypercarbic respiratory failure secondary to COPD exacerbation, progressive MD Still sob ,work of breathing seems slightly improving pulm eval noted - continue nebs, oxygen, steroids, antibiotics Continue as needed BiPAP, although he is declining, discussed with orthotic aide/pulm, if can't tolerate bipap may need trach vs biphasic cuirass ventilater as he is oxygen dependent and his muscular dystrophy is progressing Bradycardia episode. One episode no further episodes noted TSH normal, currently in sinus rhythm history of Atrial fibrillation, unspecified continue Eliquis, metoprolol. UTI follow urine cultures -mix completed course of abx Bipolar disorder home meds, prn hydraoxizine used in icu. Dementia/frontotemproal dementia continue supportive care ,home meds added. intermittent refusing treatment added p.r.n. Atarax deemed No capacity by counseling psychologist Muscular dystrophy supportive care Oxygen dependent DVT prophylaxis with [place] Attending Dr. Blackman Patient is decling bipap and the possibility of biphasic vent. Discussed with sister Anay [phone] plan to return back to [facility], MOLST form completed inpatient need:acute hypoxemic/ hypercarbic respiratory failure secondary to COPD exacerbation ? Quality Stroke Does the patient have a stroke diagnosis?: No VTE Prior VTE?: No VTE Risk Level:: Medical - moderate - high VTE Device Contraindication: N/A - Device Ordered VTE Drug Contraindication: N/A - Med Ordered
[2022-10-13] MEDS: predniSONE 10 MG TABLET 30 MG PO (10:31)
[2022-10-13] MEDS: Metoprolol Succinate ER 50 MG TAB.ER.24H PO (10:31)
[2022-10-13] MEDS: Cyanocobalamin (Vitamin B-12) 1,000 MCG TABLET 1000 MCG PO (10:31)
[2022-10-13] MEDS: Sodium,Potassium Phosphates POWD.PACK 1 PACKET PO ×2 (10:31→14:00)
[2022-10-13] MEDS: Apixaban 5 MG TABLET PO (10:31)
[2022-10-13] MEDS: Docusate Sodium 100 MG CAPSULE PO (10:31)
[2022-10-13] MEDS: FLUoxetine HCl 20 MG CAPSULE 40 MG PO (10:31)
[2022-10-13] MEDS: Nystatin Powder 15 GM BOTTLE 1 APPL TOPICAL (10:36)
[2022-10-13 11:36] VITALS: BP 116/62; PULSE 64; RESP 20; TEMP 36.3; O2SAT 95
--- NOTE | 2022-10-13 12:24 | P.DS_ITS ---
DS: Providers Provider Date of Service: 10/13/22 Date of admission: 10/01/22 05:42 Primary care physician: Karina Xiong MD Consults: 10/03/22 11:13 Consult to Psychiatry Routine Consulting Provider: Psych Covering Reason for consultation: frontotemproal dementia with behavioural agiatation Has provider been notified: No 10/03/22 13:41 Consult to Care Team Routine Comment: Reason for consultation: depressed /SI 10/03/22 14:43 Consult for Sitter Routine Reason for consultation: Depression/ /suicidal Has provider been notified: No 10/05/22 08:32 BHN [Consult to Crisis] Stat Reason for consultation: medically clear /need psych SI Has provider been notified: No 10/05/22 08:33 Consult to Care Team Stat Comment: Reason for consultation: med clear /need psych placement 10/05/22 09:58 Consult to Pulmonology Routine Consulting Provider: [facility] Reason for consultation: acute hypoxemic /hypercarbic respiratory fialure sec to copd Has provider been notified: No 10/06/22 16:56 Consult for Sitter Routine Reason for consultation: SI Has provider been notified: No Consult to Psychiatry Routine Consulting Provider: Psych Covering Reason for consultation: SI-need clearence by psych as per bhn Has provider been notified: No 10/09/22 11:30 Consult to Psychiatry Routine Consulting Provider: Psych Covering Reason for consultation: evaluation for competency Has provider been notified: No Attending physician on discharge: Bill Blackman Discharging clinician: Adamaris Herrera DS: Diagnosis Discharge Diagnosis (1) Acute on chronic respiratory failure with hypoxia and hypercapnia: Status: Acute (2) MDD (major depressive disorder), recurrent episode, moderate: Status: Acute DS: Summary Hospital Course Hospital Course: History and physical as per admitting provider 67-year-old gentleman with underlying frontotemporal dementia, bipolar, limb girdle muscular dystrophy, paroxysmal AFib on Eliquis, COPD on supplemental oxygen 2-3 L [facility] with complaints of dyspnea.? On ER evaluation patient hyperoxic and hypercapnic requiring BiPAP support.? CT chest with demonstration of chronic atelectasis.? Laboratory studies source of notable for likely developing urinary tract infection.? Patient admitted to intensive care unit, titrated off BiPAP to his basal supplemental oxygen rate of 2 L. started on ceftriaxone for UTI and azithromycin for COPD exacerbation . Patient has progressive muscular dystrophy. Discussed several times with several providers, case management and psychiatric care providers. Patient was found to not have capacity. His sister Hailey Cueva is his healthcare proxy. A MOLST form was completed over the phone with her. The patient has continually declined BiPAP and other non invasive means of respiratory/ ventilator support. He is aware that by not using it he could become hypercarbic. He reports understanding of this although sometimes deviates and goes to other topics, reason for the lack of capacity. Capacity evaluation can be redone at any point. At this time patient adamantly wants to return to [facility] with his supplemental oxygen and is okay with returning to the hospital for any respiratory distress although he does not want any intubation. Hypertension with elevated blood pressure reading. Resolved One dose of hydralazine continue metoprolol Acute hypoxemic/ hypercarbic respiratory failure secondary to COPD exacerbation, progressive MD Still sob ,work of breathing seems slightly improving pulm link noted - continue nebs, oxygen, steroids, antibiotics Continue as needed BiPAP, although he is declining, discussed with sap bpc architect/pulm Bradycardia episode.? One episode no further episodes noted TSH normal, currently in sinus rhythm history of Atrial fibrillation, unspecified continue Eliquis, metoprolol. UTI follow urine cultures -mix completed course of abx Bipolar disorder home meds, prn hydraoxizine used in icu. Dementia/frontotemproal dementia continue supportive care ,home meds added. intermittent refusing treatment added p.r.n. Atarax deemed No capacity by psychology fellow Muscular dystrophy supportive care Oxygen dependent Time Spent with Patient Time attestation: Total time spent providing and/or coordinating discharge services: Discharge coordination time: Greater than 30 minutes Quality: Safe Use of Opioids Does Pt have an Active Cancer Diagnosis on the Problem List?: No Quality: Stroke Does the patient have a stroke diagnosis?: No Physical Exam Vital Signs: Vital Signs: Last Vital Signs Temp 97.4 F 10/13/22 11:36 Pulse 64 10/13/22 11:36 Resp 20 10/13/22 11:36 BP 116/62 10/13/22 11:36 Pulse Ox 95 10/13/22 11:36 O2 Del Method 10/13/22 11:36 O2 Flow Rate 2 10/13/22 11:36 FiO2 94 10/07/22 19:35 Oxygen Flow Rate 6 10/01/22 00:07 BMI result Body Mass Index 22.4 Appearing in no acute distress head is normocephalic atraumatic eyes pupils are PERRLA sclera is anicteric mouth throat mucous membranes are intact and moist neck is supple no lymphadenopathy, no JVD noted lung sounds are clear to auscultation , very little muscle /chest reserve for inspiratory process heart regular rate rhythm, clear S1, S2 positive bowel sounds, abdomen is soft, nontender neuro patient is alert x3, no focal deficits Discharge Plan Discharge Anticipated Discharge Date/Time: 10/13/22 12:10 Patient Disposition: Home, Self-Care Discharge Diagnosis: Acute hypoxemic/ hypercarbic respiratory failure secondary to COPD exacerbation and progressive muscular dystrophy UTI Bradycardia Atrial fibrillation Referrals: Karina Xiong MD [Primary Care Provider] - 1 Week Discharge Medications: New prednisone 10 mg Tablet See Taper PO DAILY Qty: 30 0RF Taper: Prednisone 30 mg daily for 5 Days and 0 Hour 20 mg daily for 5 Days and 0 Hour 10 mg daily for 5 Days and 0 Hour metoprolol succinate 50 mg Tablet Extended Release 24 Hr 50 mg PO DAILY Qty: 30 0RF Protocol: Hold for SBP/HR < HOLD for SBP < : 90 HOLD for HR < : 60 hydroxyzine HCl 50 mg Tablet 50 mg PO Q6H PRN (Reason: anxiety) Qty: 120 0RF Continued acetaminophen 325 mg Tablet 650 mg PO Q6H PRN (Reason: Pain) ipratropium-albuterol 0.5 mg-3 mg(2.5 mg base)/3 mL solution for nebulization 3 ml inhalation Q6H PRN (Reason: Wheezing) loperamide 2 mg Capsule 2 mg PO TID PRN (Reason: Diarrhea) trazodone 50 mg tablet 0.5 tab PO BEDTIME PRN (Reason: Sleep) cyanocobalamin (vitamin B-12) 1,000 mcg Tablet 1,000 mcg PO DAILY melatonin 3 mg Tablet 6 mg PO BEDTIME olanzapine 2.5 mg tablet 1 tab PO BEDTIME guaifenesin 100 mg/5 mL Liquid 200 mg PO Q4H PRN (Reason: Cough) magnesium hydroxide [Milk of Magnesia] 400 mg/5 mL Suspension 2,400 mg PO DAILY PRN (Reason: Constipation) ropinirole 0.25 mg tablet 1 tab PO BEDTIME bisacodyl 10 mg Suppository 10 mg SD DAILY PRN (Reason: Constipation) fluoxetine 20 mg tablet 1 tab PO DAILY losartan 25 mg tablet 1 tab PO DAILY Fleet Enema 19-7 gram/118 mL Enema 118 ml SD BEDTIME PRN (Reason: Constipation) docusate sodium 100 mg Capsule 100 mg PO BID albuterol sulfate 90 mcg/actuation HFA aerosol inhaler 90 mcg inhalation Q4H PRN (Reason: Wheezing) cholecalciferol (vitamin D3) 1,250 mcg (50,000 unit) Capsule 1,250 mcg PO QMONTH Rx Instructions: OF EVERY MONTH Eliquis 5 mg tablet 1 tab PO BID Combivent Respimat 20-100 mcg/actuation mist 1 puff inhalation QID fluoxetine 10 mg tablet 1 tab PO DAILY Discontinued metoprolol succinate 25 mg tablet extended release 24 hr 1 tab PO DAILY Diet: Advance to usual diet Activity on Discharge: As tolerated Stand Alone Forms: Patient Portal Discharge page Care Plan Goals: Continue therapeutic oxygen via nasal cannula Health Concerns: Acute hypoxemic/ hypercarbic respiratory failure secondary to COPD exacerbation and progressive muscular dystrophy UTI Bradycardia Atrial fibrillation Plan of Treatment: Very low muscle reserve with history muscular dystrophy, progressive. On supplemental oxygen, declines BiPAP and other noninvasive ventilatory support. Deemed to have lack of capacity, has healthcare proxy sister, Hailey Contreras available by phone. MOLST Form completed. Assessment: see discharge summary
--- NOTE | 2022-10-13 12:47 | MHC.CM.PN ---
Per ROUNDS discussion, Patient will be medically cleared for dc to SNF/LTC today. Patient will return to LTC @ [facility] today at 3PM via [facility]. Patient was recently determined to NOT have capacity; CM spoke with Patient's Sister/HCP/Anay @ [phone] and addressed IMM with her (original will be mailed certified letter to Anay and a copy has been placed on the chart).
[2022-10-13 14:38] LABS: COVID-19 Test Invalid (Negative); IDNOW Serial# 9DB6401D
--- NOTE | 2022-10-13 14:53 | MHC.CM.PN ---
Covid results came back invalid; CM requested RN swab again with MD's order. CM has changed worm picker time to 5 PM.
[2022-10-13 15:45] LABS: COVID-19 Test Negative (Negative); IDNOW Serial# 16C4AD1C
== END 2022-10-13 17:30 | disposition skilled nursing facility (03) | DRG 193 ==
LOC: HO.ED 10-01 05:34 → HO.EDOVER 10-01 05:46 → HO.ICU 10-01 06:22 → HO.IMC 10-01 13:29 → HO.ICU 10-01 21:40 → HO.IMC 10-02 10:37
PROVIDERS: Hospitalist; Internal Medicine; Internal Medicine Cardiovascular Disease; Internal Medicine Pulmonary Disease; Physician Assistant Medical; Student in an Organized Health Care Education/Training Program; Admitting Provider Registered Nurse Community Health; Emergency Provider Internal Medicine; PCP Internal Medicine; Visit Provider Nurse Practitioner Acute Care
DX: J18.9 Pneumonia, unspecified organism (principal); G92.8 Other toxic encephalopathy; J96.21 Acute and chronic respiratory failure with hypoxia; J96.22 Acute and chronic respiratory failure with hypercapnia; J44.0 Chronic obstructive pulmonary disease with (acute) lower respiratory infection; N39.0 Urinary tract infection, site not specified; F33.9 Major depressive disorder, recurrent, unspecified; J44.1 Chronic obstructive pulmonary disease with (acute) exacerbation; R45.851 Suicidal ideations; G31.09 Other frontotemporal neurocognitive disorder; Z66 Do not resuscitate; I48.0 Paroxysmal atrial fibrillation; R00.1 Bradycardia, unspecified; F02.80 Dementia in other diseases classified elsewhere, unspecified severity, without behavioral disturbance, psychotic disturbance, mood disturbance, and anxiety; G71.039 Limb girdle muscular dystrophy, unspecified; I10 Essential (primary) hypertension; Z20.822 Contact with and (suspected) exposure to COVID-19; Z99.81 Dependence on supplemental oxygen; Z79.01 Long term (current) use of anticoagulants; Z79.899 Other long term (current) drug therapy
CPT/HCPCS: 0241U; 36415; 36600; 70450; 71045; 71250; 74176; 80048; 80053; 81001; 82040; 82803; 82947; 83605; 83735; 83880; 84100; 84295; 84443; 84484; 85025; 85379; 85610; 87040; 87086; 87635; 92950; 93005; 94640; 94660; 96365; 96375; 99285; J0456; J0696; J1953; J2250; J2270; J2543; J2930; J3475